=== PATIENT | female | born 1950 | race Caucasian/White ===

== ENCOUNTER 2019-02-24 14:27 | Outpatient (REF) | payer MEDICARE, OTHER, SELFPAY ==
[2019-02-24 18:49] LABS: Abs Immature Grans 0.01 k/cumm (0.0-0.09); Absolute Basophil Count 0.04 k/cumm (0.0-0.2); Absolute Eosinophil Count 0.01 k/cumm (0.0-0.7); Absolute Lymphocyte Count 1.24 k/cumm (1.2-3.4); Absolute Neutrophil Count 7.09 k/cumm (1.2-6.7); Basophils % 0.4; Eosinophils % 0.1; HCT 39.1 % (36.0-46.0); HGB 13.5 g/dL (12.0-15.5); Immature Grans % 0.1; Lymphocytes % 13.3; Mean Corp. HGB Concentration 34.5 g/dL (32.0-36.0); Mean Corpuscular Volume 89.7 fL (80-95); Mean Platelet Volume 11.8 fL (8.0-11.0); Monocytes % 9.7; Neutrophils % 76.4; Platelet Count 183 x1000/uL (130-400); RBC 4.36 m/cumm (4.00-5.20); RBC Distribution Width 12.7 % (11.7-14.6); White Blood Cell Count 9.29 k/cumm (4.4-10.8)
[2019-02-24 19:29] LABS: ALT 24 U/L (12-78); AST 20 U/L (15-37); Albumin 3.9 g/dL (3.4-5.0); Alkaline Phosphatase 133 U/L (46-116); BUN 9 mg/dL (7-18); Bilirubin, Total 0.6 mg/dL (0.2-1.0); CREATININE 1.13 mg/dL (0.55-1.02); Calcium 9.6 mg/dL (8.5-10.1); Calculated LDL 68 mg/dL; Cholesterol 188 mg/dL (50-200); Glucose 441 mg/dL (70-100); HDL Cholesterol 42 mg/dL (40-60); Magnesium 1.5 mg/dL (1.8-2.4); TSH 2.63 uIU/mL (0.358-3.74); Total Protein 7.5 g/dL (6.4-8.2); Triglyceride 394 mg/dL (30-150); Vitamin B12 1034 pg/mL (193-986)
[2019-02-24 19:38] LABS: Anion Gap 26.8 mmol/L (3-11); Chloride 96 mmol/L (98-107); Potassium 3.6 mmol/L (3.5-5.1); Sodium 136 mmol/L (136-145); Uric Acid 6.6 mg/dL (2.6-6.0)
[2019-02-24 19:39] LABS: CO2 13.2 mmol/L (21.0-32.0)
== END 2019-02-24 14:47 ==
LOC: LBN 14:27
PROVIDERS: PCP Internal Medicine; Visit Provider Internal Medicine
DX: E11.65 Type 2 diabetes mellitus with hyperglycemia (principal); E78.00 Pure hypercholesterolemia, unspecified; R53.1 Weakness; E83.42 Hypomagnesemia
CPT/HCPCS: 80053; 80061; 83721; 82607; 83735; 84443; 84550; 85025

== ENCOUNTER 2019-02-25 16:27 | Inpatient (IN) | payer MEDICARE, OTHER, SELFPAY ==
[2019-02-25] VITALS (15 sets, daily range): BP systolic 100–127; BP diastolic 55–74; PULSE 65–84; RESP 12–23; TEMP 36.3–36.6; O2SAT 96–100
--- NOTE | 2019-02-25 17:01 | W.ED.GENAD ---
Discharge Plan Disposition Patient Disposition: [facility] INPATIENT Condition: Serious Discharge Details Chief Complaint: Diabetes Clinical Impression: DKA (diabetic ketoacidoses) Admit Date/Time: 02/25/19 19:03 Admit Provider: William Doll Attending Provider: William Doll Primary Care Provider: Renée Walker ED Provider: Linda Swain Medical Decision Making ReviewedThe patient's chart. Her hemoglobin A1c is elevated at 14. This is not atypical for the patient, she has had an A1c of 14 since September 2017. CBC completed yesterday was up significant abnormality. Her magnesium was noted to be low at 1.5, this is typical for the patient. Triglycerides are elevated at 394, again this is not unusual for the patient. Potassium was 3.6. Dioxide is 13.2, anion gap of 26.8. Creatinine 1.13, this is moderate for the patient. Glucose was found to be 441. Patient denies any recent change in her diet. Does drink copious amounts of Crystal light. Patient appears dehydrated. Her VS are WNL. She has no acute complaints at this time. PCP reports that she has had 30lb weight loss over the past year. Patient appears dry on exam. Her vital signs are within normal limits. She appears nontoxic. She is not tachypneic. I do not appreciate any malodorous or ketones on her breath. I discussed with patient why she has not received treatment thus far for her diabetes. She reports that she is hesitant to take medication secondary to side effects that could possibly affect her vision. I counseled her at length about her uncontrolled diabetes and the risks associated with her vision. She seems upset by this and still hesitant to take medications long-term. Will repeat laboratory evaluation, begin hydrating the patient. Her potassium was normal yesterday but she will likely be receiving IV insulin, will begin replenishing this IV. We will begin with 20 mEq IV. Discussed this plan with the patient is in agreement. CBC is significant abnormality. Patient's sodium is slightly low at 134. Her potassium is 3.9. Bicarb 13.6. Anion gap creatinine is elevated 22.4, this is down from 26.8 yesterday. Creatinine is 1.32, this is higher than the patient's typical. Glucose is 557. Patient has been elevated like this historically, a1C often 14. Patient receiving IV fluids, potassium. Will begin on insulin drip with 6U bolus. Consulted with Dr. Carr regarding dosing, will begin at 0.1u/kg/hr. UA concerning for ketones, will add VBG. VBG concerning for pH of 7.21. Consulted with Dr. Doll regarding admission for DKA. Discussed with patient. We again discussed risks of her glucose being elevated like this, she is in agreement with home medications at this point. All of her questions and cocnerns were addressed. She has remained comfortable, has been eating and drinking since being here. HPI General Mode of arrival: ambulatory. Date/Time Provider Initiated Documentation: 02/25/19 16:38. Limitations to Documentation: no limitations. Information obtained by: patient, RN/MD (contact by primary care ) and RN notes reviewed. HPI Narrative: Patient is a 68-year-old female history of uncontrolled diabetes, presenting today with chief complaint of hyperglycemia. Patient seems fairly lackadaisical about why she is here, feels that she is here to receive a dosing of IV insulins that she is able to go through with her upcoming surgery. Primary concern for HHS. Patient reports that she had fallen 2 days ago, followed up with primary care yesterday at which time it was noted that she had an elevated A1c and glucose. Patient reports that she has been hesitant to begin on any diabetes medication secondary to side effects. She is concerned that this may worsen her vision. Patient is preparing for cataract replacements and was seeing her PCP in preparation for March 13 surgical date. Related Data Home Medications Medication Instructions Recorded Confirmed Bath Commode 1 u MISCELLANEOUS DAILY #1 u 07/31/16 02/25/19 blood sugar diagnostic [Onetouch #100 strip 05/14/17 02/25/19 Verio] lancets [Onetouch Lancets] #100 ea 07/30/17 02/25/19 Himalyian Sea Salts 1 cap PO DAILY 09/24/17 02/25/19 dulaglutide 0.75 mg/0.5 mL 0.75 mg SC QWEEK #2 ml 02/03/19 02/25/19 subcutaneous pen injector Previous Rx's Medication Instructions Recorded blood sugar diagnostic [Onetouch #100 strip 05/14/17 Verio] lancets [Onetouch Lancets] #100 ea 07/30/17 dulaglutide 0.75 mg/0.5 mL 0.75 mg SC QWEEK #2 ml 02/03/19 subcutaneous pen injector Allergies Allergy/AdvReac Type Severity Reaction Status Date / Time Penicillins Allergy Intermediate rash Verified 02/25/19 16:40 Sulfa (Sulfonamide Allergy Unknown Verified 02/25/19 16:40 Antibiotics) ct scan dye Allergy Unknown Uncoded 02/25/19 16:40 General Stated Complaint: Diabetes DEENA: 3 Review of Systems Constitutional Reports as per HPI, Denies chills, Denies fever(s), Denies headache(s), Denies lethargy and Denies poor appetite Eyes Reports change in vision (chronic, no acute changes) ENT Denies dizziness and Denies headache(s) Cardiovascular Reports as per HPI, Denies dyspnea and Denies dyspnea on exertion Respiratory Reports as per HPI, Denies chest congestion, Denies cough, Denies pain on inspiration, Denies pain with cough, Denies dyspnea, Denies dyspnea on exertion and Denies wheezing Gastrointestinal Reports as per HPI, Denies abdominal pain, Denies diarrhea, Denies nausea and Denies vomiting Musculoskeletal Reports as per HPI and Denies back pain Integumentary/Breasts Reports as per HPI and Denies rash Neurologic Reports as per HPI, Denies dizziness and Denies headache(s) Allergic/Immunologic Denies wheezing [facility] Medical History Ascites of liver (Inactive 11/15/14) Diabetes mellitus (Inactive 03/26/17) Essential hypertension (Inactive 01/16/12) Uncontrolled type 2 diabetes mellitus without complication, without long-term current use of insulin (Inactive 01/14/18) Surgical History Cervical Procedure S/P appendectomy (Acute) Social History Smoking/Tobacco Use Status: Never Alcohol Intake: former Drug use: Never Substance use type: does not use Household members: none Housing: house Number of Children: 1 number of grandchildren: 0 Education Level: other 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 Pets and animals: Yes Pets and animals: cat(s) What type of physical activity do you participate in: none Seatbelt use: always Drive intox or ride w/intox stacker driver: No Working smoke detector in home: Yes Fire extinguisher in home: Yes Carbon monox detector in home: Yes Do you feel safe at home: Yes Exam Const General: cooperative, healthy appearing, comfortable, no acute distress and well developed Nutritional Appearance: average body habitus and well nourished Orientation: alert, awake and oriented x3 HENMT Head: normal to inspection Ears: hearing grossly normal bilaterally Mouth: mucous membranes dry (patient appears dry) Chest Chest: normal inspection of the chest, normal palpation of entire chest wall and no crepitus Resp Effort & Inspection: normal respiratory effort, able to speak in complete sentences and no respiratory distress Auscultation: clear to auscultation bilaterally, no rales, no rhonchi and no wheezes Cardio Rate: regular rate Rhythm: regular rhythm Heart Sounds: S1 normal and S2 normal GI Inspection: normal to inspection, no edema and non-distended Palpation: soft, no hepatosplenomegaly, not firm, no guarding, not rigid and nontender Auscultation: normal bowel sounds Back/Spine/Pelvis Back: no CVA tenderness Thoracic/Lumbar Spine: thoracic and lumbar spine normal to inspection Skin General skin exam: no rashes or lesions noted Trauma: no lacerations or abrasions Neuro General: alert, awake and oriented x3 Cognition: normal cognition Speech: speech normal Gait: normal gait Extrem General: normal to inspection, normal capillary refill, no pedal edema, no calf tenderness and normal gait Psych Appearance: grossly normal and well kempt Mental Status: mental status grossly normal Speech and Movement: speech and movement normal Course Vital Signs Temperature 36.6 C 02/25/19 16:34 Pulse 84 02/25/19 16:34 Respiratory Rate 16 02/25/19 16:34 Blood Pressure 127/69 02/25/19 16:34 Pulse Oximetry 100 02/25/19 16:34 Temperature 36.6 C 02/25/19 16:34 Temperature Source Temporal Artery Scan 02/25/19 16:34 Pulse 84 02/25/19 16:34 Respiratory Rate 16 02/25/19 16:34 Respiratory Effort 02/25/19 16:38 Blood Pressure 127/69 02/25/19 16:34 Blood Pressure Position Supine 02/25/19 16:34 Pulse Oximetry 100 02/25/19 16:34 Oxygen Delivery Method Room Air 02/25/19 16:34 Oxygen Flow Rate 0 02/25/19 16:34 Pain Level 0 02/25/19 16:34
[2019-02-25 17:16] LABS: Abs Immature Grans 0.01 k/cumm (0.0-0.09); Absolute Basophil Count 0.05 k/cumm (0.0-0.2); Absolute Eosinophil Count 0.06 k/cumm (0.0-0.7); Absolute Lymphocyte Count 1.28 k/cumm (1.2-3.4); Absolute Monocyte Count 0.35 k/cumm (0.11-0.7); Absolute Neutrophil Count 2.97 k/cumm (1.2-6.7); Basophils % 1.1; Eosinophils % 1.3; HGB 12.6 g/dL (12.0-15.5); Immature Grans % 0.2; Lymphocytes % 27.1; Mean Corpuscular Hemoglobin 31.3 pg (27.0-33.0); Mean Corpuscular Volume 89.3 fL (80-95); Mean Platelet Volume 11.1 fL (8.0-11.0); Monocytes % 7.4; Neutrophils % 62.9; Platelet Count 150 x1000/uL (130-400); RBC 4.03 m/cumm (4.00-5.20); RBC Distribution Width 12.6 % (11.7-14.6); White Blood Cell Count 4.72 k/cumm (4.4-10.8)
[2019-02-25 17:25] LABS: ALT 22 U/L (12-78); AST 17 U/L (15-37); Albumin 3.5 g/dL (3.4-5.0); Alkaline Phosphatase 121 U/L (46-116); Anion Gap 22.4 mmol/L (3-11); BUN 11 mg/dL (7-18); Bilirubin, Total 0.6 mg/dL (0.2-1.0); CO2 13.6 mmol/L (21.0-32.0); CREATININE 1.32 mg/dL (0.55-1.02); Calcium 9.3 mg/dL (8.5-10.1); Chloride 98 mmol/L (98-107); Estimated GFR 39.79 (mL/min/1.73m2); Potassium 3.9 mmol/L (3.5-5.1); Sodium 134 mmol/L (136-145); Total Protein 7.4 g/dL (6.4-8.2)
[2019-02-25 17:36] LABS: Glucose 557 mg/dL (70-100)
[2019-02-25] MEDS: Normal Saline 1,000 ML 1000 ML IV (17:40)
[2019-02-25 17:46] LABS: Bilirubin Small (Negative); Blood Negative (Negative); Clarity Clear (Clear); Glucose 500 mg/dL (Negative); Ketones >=160 mg/dL (Negative); Leukocyte Esterase Negative (Negative); Nitrite Negative (Negative); Urobilinogen 0.2 EU/dL (Up TO 0.2); pH 5.5 (5-8)
[2019-02-25] MEDS: Insulin REGULAR-Human 100 UNITS/ML UNIT 6 UNITS IV (18:14)
[2019-02-25] MEDS: Normal Saline 1,000 ML 2000 ML IV (18:45)
[2019-02-25 18:51] LABS: HCO3 (Venous) 13 mmol/L (22-28); O2 Sat (Venous) 48 % (70-80); TCO2 (Venous) 13 mmol/L (22-29); pCO2 (Venous) 33 mm/Hg (34-47); pH (Venous) 7.21 (7.32-7.43); pO2 (Venous) 28 mm/Hg (28-44)
[2019-02-25] MEDS: POTASSIUM CHLORIDE 20 MEQ/100 ML BAG 50 MEQ IVPB ×2 (18:55→21:42)
[2019-02-25 19:03] LABS: Anion Gap 21.6 mmol/L (3-11); BUN 10 mg/dL (7-18); CO2 14.4 mmol/L (21.0-32.0); CREATININE 1.16 mg/dL (0.55-1.02); Calcium 8.9 mg/dL (8.5-10.1); Chloride 101 mmol/L (98-107); Estimated GFR 46.19 (mL/min/1.73m2); Glucose 410 mg/dL (70-100); Potassium 3.2 mmol/L (3.5-5.1); Sodium 137 mmol/L (136-145)
--- NOTE | 2019-02-25 20:57 | W.PM.HP.N ---
Date of service: 02/25/19 Time of Service: 20:57 Assessment and Plan (1) DKA (diabetic ketoacidoses): Current visit: Yes Status: Acute correct hypokalemia first then resume insulin drip; continue aggressive iv fluid hydration; monitor hourly glucose and BMP every 3 to 4hrs correcting her potassium; if becomes hypernatremic/hyperchloremic then replace with 0.45% saline. patient will need salesforce consultant to teach her on insulin use. She could benefit from help with getting glucose monitoring equipment for the visually impaired as well as set up for insulin pens with some system for the visually impaired. (2) Hypomagnesemia: Current visit: Yes Status: Acute will give magnesium iv bolus and repeat her levels. may be difficult getting her K+ corrected until her Mg++ is corrected (3) Hypokalemia: Current visit: Yes Status: Acute continue potassium 40 meq in her maintenance iv at 200 mL/hr (this will give about 9 meq/hr) and will give couple of 20 meq boluses. repeat her electrolytes every 3 hr overnight until K+ is over 4 (4) Unintentional weight loss: Current visit: Yes Status: Acute probably secondary to uncontrolled DM however I explained to the patient that if her weight does not stabilize with control of her DM then she may further outpatient workup for occult cancer (5) Neuropathy: Current visit: No Status: Acute she has diabetic neuropathy with some superficicial skin ulcerations on tips of her toes and hammer toes. there is no purulent drainage from her toes but she has a blackened area on the left 2nd toe. I will ask Dr. Laura to evaluate her toes. History of Present Illness Chief Complaint: I was told by Dr. 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 Glycohemoglobin A1c's have been over 12% since March 26, 2017 with her most recent A1c being 14% as of February 03, 2019. Patient's had blurred vision for at least a couple years now but is gotten worse over the last several months and she is been told that she has bilateral cataracts that need to be removed but her primary care provider will not consent to her having surgery unless she gets her diabetes mellitus under control. Dr. Walekr perform routine laboratory tests yesterday as part of the patient's preoperative work-up. Patient was found to have a glucose level of 441 with an anion gap of 26.8. She was told to present to the emergency department. Patient came in this afternoon and laboratory work-up confirmed that she has diabetic ketoacidosis with an anion gap of 22.4 and a glucose of 557 and greater than 160 mg/dL of ketones in her urine and a venous blood gas with a pH of 7.21 and a chemistry bicarbonate level that was as low as 13.6. Patient was seen and treated in the emergency department by Monique Molina, who gave the patient 2 L normal saline and a bolus of 6 units of insulin and began an insulin drip at 0.1 units/kg/h or 6 units an hour. Initially her potassium was 3.9 on admission but after the fluid boluses and initiation of insulin her potassium dropped to 3.2. Her magnesium level been checked yesterday but not repeated today yet. It was low at 1.5. I advised that the patient should be admitted to the intensive care unit for treatment of diabetic ketoacidosis. In spite of her severe laboratory abnormalities the patient overall feels pretty good and denies polyuria or polydipsia or polyphagia although admits to drinking a lot of crystal light because she does not like water. Patient has not been taking any diabetic medications although she says she was prescribed Trulicity a couple months ago. Patient does not check her blood sugars at home because she cannot see the meter. She is been afraid to give herself the Trulicity because she cannot see to dose herself. Patient lives alone but receives some help from her son who lives nearby and he reads her male and helps her do her bookkeeping. She was scheduled to have her cataract surgery this next month pending control of her diabetes mellitus. Patient denies any symptoms of fevers, chills, rigors, nausea or vomiting, diarrhea, abdominal pain, chest pain, dyspnea. Patient does admit to a recent fall in the last week in which she fell on her left side and had trouble getting up but since that time she has been able to walk without any significant left-sided hip or knee pain. It sounds like it was a simple mechanical fall which she tripped. Patient denies any other chronic medical conditions. She does admit to a 40 pound weight loss over the past year. Past medical history significant for cataracts as well as type 2 diabetes mellitus however when I asked her how long she has had the diabetes mellitus she was unclear she thinks may be 5 years but does not think that it has been more than 10 years. She denies any hypertension or congestive heart failure heart attack strokes. She does admit to diabetic peripheral neuropathy in her toes. Her past surgical history significant for appendectomy and tonsillectomy. She is and has 1 grown son. Review of Systems Constitutional Reports weight loss (40 lbs over one year) Eyes Reports blurry vision Cardiovascular Reports system reviewed and no additional complaints, except as docu Respiratory Reports system reviewed and no additional complaints, except as docu Gastrointestinal Reports system reviewed and no additional complaints, except as docu Genitourinary Reports system reviewed and no additional complaints, except as docu Musculoskeletal Reports system reviewed and no additional complaints, except as docu, Reports numbness and Reports tingling Integumentary/Breasts Reports system reviewed and no additional complaints, except as docu Neurologic Reports numbness and Reports tingling Psychiatric Reports system reviewed and no additional complaints, except as docu Endocrine Reports as per HPI Hematologic/Lymphatic Reports system reviewed and no additional complaints, except as docu Allergic/Immunologic Reports system reviewed and no additional complaints, except as docu PFS Medical History (Updated 02/26/19 @ 15:57 by Wendy Lin MD) Ascites of liver (Inactive 11/15/14) Diabetes mellitus (Inactive 03/26/17) Essential hypertension (Inactive 01/16/12) Uncontrolled type 2 diabetes mellitus without complication, without long-term current use of insulin (Inactive 01/14/18) Surgical History (Updated 02/25/19 @ 22:14 by William Doll) Cervical Procedure S/P appendectomy (Acute) S/P tonsillectomy (Acute) Family History Grandmother Stroke Mother No problems noted. 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 Pets and animals: Yes Pets and animals: cat(s) What type of physical activity do you participate in: none Seatbelt use: always Drive intox or ride w/intox front end loader driver: No Working smoke detector in home: Yes Fire extinguisher in home: Yes Carbon monox detector in home: Yes Do you feel safe at home: Yes Meds Home Medications Medication Instructions Recorded Confirmed Type Bath Commode 1 u MISCELLANEOUS DAILY #1 u 07/31/16 02/25/19 History blood sugar diagnostic [Onetouch #100 strip 05/14/17 02/25/19 Rx Verio] lancets [Onetouch Lancets] #100 ea 07/30/17 02/25/19 Rx Himalyian Sea Salts 1 cap PO DAILY 09/24/17 02/25/19 History dulaglutide 0.75 mg/0.5 mL 0.75 mg SC QWEEK #2 ml 02/03/19 02/25/19 Rx subcutaneous pen injector Allergies Allergy/AdvReac Type Severity Reaction Status Date / Time Penicillins Allergy Intermediate rash Verified 02/25/19 16:40 Sulfa (Sulfonamide Allergy Unknown Verified 02/25/19 16:40 Antibiotics) ct scan dye Allergy Unknown Uncoded 02/25/19 16:40 Exam Const General: cooperative, no acute distress and well groomed Nutritional Appearance: average body habitus Orientation: alert, awake and oriented x3 HENMT Head: normal to inspection, no palpable skull fracture, normocephalic and atraumatic Ears: hearing grossly normal bilaterally, external ears normal and TM's normal bilaterally General nose exam: external nose normal and nares normal Face and sinus: normal facial exam Mouth: oral mucosae normal, lip normal, tongue normal, oropharynx normal and malodorous breath ketones Teeth and gingiva: fair dentition and multiple restorations Neck Neck: normal visual inspection, full ROM, no lymphadenopathy, no meningeal signs, trachea midline, supple and no JVD Thyroid: thyroid normal Carotids: normal carotid upstroke Lymphatic: no lymphadenopathy noted Resp Effort & Inspection: normal respiratory effort and able to speak in complete sentences Auscultation: clear to auscultation bilaterally Cardio Jugular venous pressure: no JVD Palpation: normal PMI Rate: regular rate Rhythm: regular rhythm Heart Sounds: S1 normal, S2 normal and murmur systolic early, crescendo, soft, II/ and at the right sternal border Bruits: no abdominal aortic bruits and no carotid bruits Pulses: posterior tibial pulses present bilaterally diminished and dorsalis pedis pulses present bilaterally diminished Skin General skin exam: no rashes or lesions noted Neuro General: alert, awake and oriented x3 Cranial Nerves: PERRL, accommodation normal, EOM intact bilaterally, no nystagmus, hearing normal, able to rotate head bilaterally and able to elevate shoulders bilaterally Cognition: normal cognition Speech: speech normal Motor: muscle tone normal throughout, strength 5/5 throughout and no movement abnormalities noted Sensory Exam: lower extremity bilateral light-touch abnormal absent Extrem Right lower extremity: foot Details: other (hammer toes) Left lower extremity: foot Details: other (hammer toes and left 2nd toe w/ purplish necrosis on tip) Psych Appearance: grossly normal Mental Status: mental status grossly normal Speech and Movement: speech and movement normal Mood: congruent mood Affect: normal affect Attitude: cooperative Thought Process: normal Thought Content: normal Insight: fair Judgment: fair Results Labs : 02/25/19 16:45 02/26/19 14:34 Laboratory Results - last 24 hr 02/25/19 02/25/19 02/25/19 16:45 16:45 17:40 WBC 4.72 D RBC 4.03 Hgb 12.6 Hct 36.0 MCV 89.3 MCH 31.3 MCHC 35.0 RDW 12.6 Plt Count 150 MPV 11.1 H Immature Gran % 0.2 Neutrophils % 62.9 Lymphocytes % 27.1 Monocytes % 7.4 Eosinophils % 1.3 Basophils % 1.1 Absolute Neutrophils 2.97 Absolute Lymphocytes 1.28 Absolute Monocytes 0.35 Absolute Eosinophils 0.06 Absolute Basophils 0.05 VBG pH VBG pCO2 VBG pO2 VBG HCO3 VBG Total CO2 VBG O2 Saturation VBG Base Excess Sodium 134 L Potassium 3.9 Chloride 98 Carbon Dioxide 13.6 L Anion Gap 22.4 H BUN 11 Creatinine 1.32 H Estimated GFR/1.73 m2 39.79 Glucose 557 H* D Calcium 9.3 Total Bilirubin 0.6 AST 17 ALT 22 Alkaline Phosphatase 121 H Total Protein 7.4 Albumin 3.5 Urine Color Yellow Urine Clarity Clear Urine pH 5.5 Ur Specific [place] 1.010 Urine Protein Negative Urine Ketones >=160 H Urine Blood Negative Urine Nitrite Negative Urine Bilirubin Small H Urine Urobilinogen 0.2 Ur Leukocyte Esterase Negative Urine Glucose 500 H 02/25/19 02/25/19 18:47 18:47 WBC RBC Hgb Hct MCV MCH MCHC RDW Plt Count MPV Immature Gran % Neutrophils % Lymphocytes % Monocytes % Eosinophils % Basophils % Absolute Neutrophils Absolute Lymphocytes Absolute Monocytes Absolute Eosinophils Absolute Basophils VBG pH 7.21 L VBG pCO2 33 L VBG pO2 28 VBG HCO3 13 L VBG Total CO2 13 L VBG O2 Saturation 48 L VBG Base Excess Sodium 137 Potassium 3.2 L Chloride 101 Carbon Dioxide 14.4 L Anion Gap 21.6 H BUN 10 Creatinine 1.16 H Estimated GFR/1.73 m2 46.19 Glucose 410 H D Calcium 8.9 Total Bilirubin AST ALT Alkaline Phosphatase Total Protein Albumin Urine Color Urine Clarity Urine pH Ur Specific [place] Urine Protein Urine Ketones Urine Blood Urine Nitrite Urine Bilirubin Urine Urobilinogen Ur Leukocyte Esterase Urine Glucose Last Vital Signs Temp 36.6 C 02/25/19 19:18 Pulse 71 02/25/19 20:23 Resp 12 02/25/19 20:23 BP 109/62 02/25/19 20:23 Pulse Ox 99 02/25/19 20:23
[2019-02-25] MEDS: POTASSIUM CHLORIDE/0.9% NACL 1,000 ML 200 MEQ IV (21:20)
[2019-02-25] MEDS: Enoxaparin 40 MG/0.4 ML SYR SC (21:20)
[2019-02-25] MEDS: MAGNESIUM SULFATE 4 GM/100 ML BAG IVPB (22:20)
[2019-02-25 22:43] LABS: Anion Gap 20.1 mmol/L (3-11); BUN 10 mg/dL (7-18); CO2 13.9 mmol/L (21.0-32.0); Calcium 9.1 mg/dL (8.5-10.1); Chloride 103 mmol/L (98-107); Glucose 299 mg/dL (70-100); PHOSPHORUS 2.4 mg/dL (2.6-4.7); Potassium 3.7 mmol/L (3.5-5.1); Sodium 137 mmol/L (136-145)
[2019-02-26] VITALS (64 sets, daily range): BP systolic 100–124; BP diastolic 56–73; PULSE 61–79; RESP 10–23; TEMP 36.2–37.4; O2SAT 94–97
[2019-02-26] MEDS: POTASSIUM CHLORIDE 20 MEQ/100 ML BAG 50 MEQ IVPB (01:18)
[2019-02-26 01:30] LABS: Anion Gap 18.9 mmol/L (3-11); BUN 9 mg/dL (7-18); CO2 13.1 mmol/L (21.0-32.0); CREATININE 1.01 mg/dL (0.55-1.02); Calcium 8.8 mg/dL (8.5-10.1); Chloride 105 mmol/L (98-107); Estimated GFR 54.19 (mL/min/1.73m2); Glucose 283 mg/dL (70-100); Potassium 4.8 mmol/L (3.5-5.1); Sodium 137 mmol/L (136-145)
[2019-02-26] MEDS: POTASSIUM CHLORIDE/0.9% NACL 1,000 ML 150 MEQ IV ×2 (03:46→10:16)
[2019-02-26 04:54] LABS: Anion Gap 14.2 mmol/L (3-11); BUN 9 mg/dL (7-18); CO2 15.8 mmol/L (21.0-32.0); CREATININE 1.07 mg/dL (0.55-1.02); Calcium 8.3 mg/dL (8.5-10.1); Chloride 108 mmol/L (98-107); Glucose 385 mg/dL (70-100); Potassium 4.5 mmol/L (3.5-5.1); Sodium 138 mmol/L (136-145)
[2019-02-26 07:28] LABS: Anion Gap 11.3 mmol/L (3-11); BUN 8 mg/dL (7-18); CO2 17.7 mmol/L (21.0-32.0); CREATININE 1.07 mg/dL (0.55-1.02); Calcium 8.3 mg/dL (8.5-10.1); Chloride 109 mmol/L (98-107); Glucose 306 mg/dL (70-100); Potassium 4.2 mmol/L (3.5-5.1); Sodium 138 mmol/L (136-145)
--- NOTE | 2019-02-26 08:24 | W.PM.PROGNOT ---
Date of Service Date of service: 02/26/19 Time of Service: 15:49 Assessment and Plan (1) DKA (diabetic ketoacidoses): Current visit: Yes Status: Acute Anion gap has closed; acidosis is correcting with change of fluids to LR and pH on VBG earlier today was already significantly better. Continue LR fluids. Give long acting insulin now. (2) Hypokalemia: Current visit: Yes Status: Acute Repleted - monitor (3) Hypomagnesemia: Current visit: Yes Status: Acute replete (4) Cataracts, bilateral: Current visit: Yes Status: Acute Patient cites difficulty seeing as the reason why she would not take insulin. She now agrees to count clicks and thinks she could work with a glucometer than talked to her. (5) Fatty liver: Current visit: No Status: Acute Check ammonia (6) DVT prophylaxis: Current visit: Yes Status: Acute lovenox (7) Discharge planning issues: Current visit: Yes Status: Acute Full code - discussed this with patient. This is what she wants, though her COLST form says differently. Continues to require ICU Subjective Interval history since last seen: Denies dizziness, chest pain, shortness of breath, nausea, vomiting. Remains on insulin gtt. Wants to go home today, but accepts staying the night. She is interested in getting out of the ICU and agrees to be transitioned to basal bolus insulin. Evidently, she declined to talk to the public health educator twice today - per patient, she is not sure why. Fell before coming in - stayed down a whole night. L thigh painful. L foot has 3 scabs on it, 2nd toe with black tip. Podiatry consult is pending. Has pulses in that foot/cool to touch. Exam Narrative Exam Narrative: General: middle-aged female, sometimes slow to respond, A&Ox3, appears dehydrated HEENT: EOMI, dry MM Heart: RRR, no m/r/g Lungs: CTAB GI: abdomen is soft, nontender, nondistended Extremities: no e/c/c BLE's Objective Objective Clinical Data: Abnormal lab results 02/25/19 02/25/19 02/25/19 Range/Units 16:45 16:45 17:40 MPV 11.1 H (8.0-11.0) fL VBG pH (7.32-7.43) VBG pCO2 (34-47) mm/Hg VBG HCO3 (22-28) mmol/L VBG Total CO2 (22-29) mmol/L VBG O2 Saturation (70-80) % Sodium 134 L (136-145) mmol/L Potassium (3.5-5.1) mmol/L Chloride (98-107) mmol/L Carbon Dioxide 13.6 L (21.0-32.0) mmol/L Anion Gap 22.4 H (3-11) mmol/L Creatinine 1.32 H (0.55-1.02) mg/dL Glucose 557 H* D (70-100) mg/dL Calcium (8.5-10.1) mg/dL Phosphorus (2.6-4.7) mg/dL Alkaline Phosphatase 121 H (46-116) U/L Urine Ketones >=160 H (Negative) mg/dL Urine Bilirubin Small H (Negative) Urine Glucose 500 H (Negative) mg/dL 02/25/19 02/25/19 02/25/19 Range/Units 18:47 18:47 20:20 MPV (8.0-11.0) fL VBG pH 7.21 L (7.32-7.43) VBG pCO2 33 L (34-47) mm/Hg VBG HCO3 13 L (22-28) mmol/L VBG Total CO2 13 L (22-29) mmol/L VBG O2 Saturation 48 L (70-80) % Sodium (136-145) mmol/L Potassium 3.2 L (3.5-5.1) mmol/L Chloride (98-107) mmol/L Carbon Dioxide 14.4 L 13.9 L (21.0-32.0) mmol/L Anion Gap 21.6 H 20.1 H (3-11) mmol/L Creatinine 1.16 H 1.10 H (0.55-1.02) mg/dL Glucose 410 H D 299 H D (70-100) mg/dL Calcium (8.5-10.1) mg/dL Phosphorus 2.4 L (2.6-4.7) mg/dL Alkaline Phosphatase (46-116) U/L Urine Ketones (Negative) mg/dL Urine Bilirubin (Negative) Urine Glucose (Negative) mg/dL 02/26/19 02/26/19 02/26/19 Range/Units 01:00 04:34 06:20 MPV (8.0-11.0) fL VBG pH (7.32-7.43) VBG pCO2 (34-47) mm/Hg VBG HCO3 (22-28) mmol/L VBG Total CO2 (22-29) mmol/L VBG O2 Saturation (70-80) % Sodium (136-145) mmol/L Potassium (3.5-5.1) mmol/L Chloride 108 H 109 H (98-107) mmol/L Carbon Dioxide 13.1 L 15.8 L 17.7 L (21.0-32.0) mmol/L Anion Gap 18.9 H 14.2 H 11.3 H (3-11) mmol/L Creatinine 1.07 H 1.07 H (0.55-1.02) mg/dL Glucose 283 H 385 H D 306 H (70-100) mg/dL Calcium 8.3 L 8.3 L (8.5-10.1) mg/dL Phosphorus (2.6-4.7) mg/dL Alkaline Phosphatase (46-116) U/L Urine Ketones (Negative) mg/dL Urine Bilirubin (Negative) Urine Glucose (Negative) mg/dL Vital Signs Temperature 36.2 C L 02/26/19 07:57 Temperature Source Temporal Artery Scan 02/26/19 07:57 Pulse 68 02/26/19 06:01 Pulse 72 02/26/19 06:01 Respiratory Rate 17 02/26/19 06:01 Respiratory Effort Non-Labored 02/26/19 07:57 Respiratory Depth Normal 02/26/19 07:57 Respiratory Pattern Normal 02/26/19 07:57 Blood Pressure 102/60 02/26/19 06:01 Blood Pressure Mean 68 02/26/19 06:01 Blood Pressure Position Supine 02/25/19 16:34 Pulse Oximetry 95 02/26/19 03:36 Oxygen Delivery Method Room Air 02/26/19 04:06 Oxygen Flow Rate 0 02/26/19 04:06 Pain Level 3 02/26/19 08:11 Intake & Output 02/25/19 02/25/19 02/26/19 11:59 23:59 11:59 Intake Total 2200 / 2200 2152.15 / 2152.15 Output Total 525 / 525 900 / 900 Balance 1675 / 1675 1252.15 / 1252.15 Weight 62.6 kg 62.6 kg Intake: IV 2200 / 2200 1222.15 / 1222.15 Oral 930 / 930 Output: Urine 525 / 525 900 / 900 Other: Urine Color Yellow Yellow Urine Appearance Clear Clear Urine Odor Normal Normal Comment Pt states that there has been no change in urination with the onset of symptoms and she has not been going more than normal # Voids 3 Laboratory Results WBC 4.72 k/cumm (4.4-10.8) D 02/25/19 16:45 RBC 4.03 m/cumm (4.00-5.20) 02/25/19 16:45 Hgb 12.6 g/dL (12.0-15.5) 02/25/19 16:45 Hct 36.0 % (36.0-46.0) 02/25/19 16:45 MCV 89.3 fL (80-95) 02/25/19 16:45 MCH 31.3 pg (27.0-33.0) 02/25/19 16:45 MCHC 35.0 g/dL (32.0-36.0) 02/25/19 16:45 RDW 12.6 % (11.7-14.6) 02/25/19 16:45 Plt Count 150 x1000/uL (130-400) 02/25/19 16:45 MPV 11.1 fL (8.0-11.0) H 02/25/19 16:45 Immature Gran % 0.2 02/25/19 16:45 62.9 02/25/19 16:45 27.1 02/25/19 16:45 7.4 02/25/19 16:45 1.3 02/25/19 16:45 1.1 02/25/19 16:45 Absolute Neutrophils 2.97 k/cumm (1.2-6.7) 02/25/19 16:45 Absolute Lymphocytes 1.28 k/cumm (1.2-3.4) 02/25/19 16:45 Absolute Monocytes 0.35 k/cumm (0.11-0.7) 02/25/19 16:45 Absolute Eosinophils 0.06 k/cumm (0.0-0.7) 02/25/19 16:45 Absolute Basophils 0.05 k/cumm (0.0-0.2) 02/25/19 16:45 VBG pH 7.21 (7.32-7.43) L 02/25/19 18:47 VBG pCO2 33 mm/Hg (34-47) L 02/25/19 18:47 VBG pO2 28 mm/Hg (28-44) 02/25/19 18:47 VBG HCO3 13 mmol/L (22-28) L 02/25/19 18:47 VBG Total CO2 13 mmol/L (22-29) L 02/25/19 18:47 VBG O2 Saturation 48 % (70-80) L 02/25/19 18:47 VBG Base Excess mmol/L (-3-3) 02/25/19 18:47 Sodium 138 mmol/L (136-145) 02/26/19 06:20 Potassium 4.2 mmol/L (3.5-5.1) 02/26/19 06:20 Chloride 109 mmol/L (98-107) H 02/26/19 06:20 Carbon Dioxide 17.7 mmol/L (21.0-32.0) L 02/26/19 06:20 11.3 mmol/L (3-11) H 02/26/19 06:20 BUN 8 mg/dL (7-18) 02/26/19 06:20 1.07 mg/dL (0.55-1.02) H 02/26/19 06:20 50.70 (mL/min/1.73m2) 02/26/19 06:20 Glucose 306 mg/dL (70-100) H 02/26/19 06:20 Calcium 8.3 mg/dL (8.5-10.1) L 02/26/19 06:20 Phosphorus 2.4 mg/dL (2.6-4.7) L 02/25/19 20:20 0.6 mg/dL (0.2-1.0) 02/25/19 16:45 AST 17 U/L (15-37) 02/25/19 16:45 ALT 22 U/L (12-78) 02/25/19 16:45 121 U/L (46-116) H 02/25/19 16:45 7.4 g/dL (6.4-8.2) 02/25/19 16:45 3.5 g/dL (3.4-5.0) 02/25/19 16:45 Yellow (Yellow) 02/25/19 17:40 Clear (Clear) 02/25/19 17:40 5.5 (5-8) 02/25/19 17:40 Ur Specific Tracy 1.010 (1.005-1.025) 02/25/19 17:40 Negative mg/dL (Negative) 02/25/19 17:40 >=160 mg/dL (Negative) H 02/25/19 17:40 Negative (Negative) 02/25/19 17:40 Negative (Negative) 02/25/19 17:40 Small (Negative) H 02/25/19 17:40 0.2 EU/dL (Up TO 0.2) 02/25/19 17:40 Ur Leukocyte Esterase Negative (Negative) 02/25/19 17:40 500 mg/dL (Negative) H 02/25/19 17:40
[2019-02-26] MEDS: Insulin Aspart 300 UNITS/3 ML PEN SC ×2 (08:49→12:31)
[2019-02-26 08:56] LABS: Magnesium 2.3 mg/dL (1.8-2.4); PHOSPHORUS 1.7 mg/dL (2.6-4.7)
[2019-02-26 09:27] LABS: Creatine Kinase 199 U/L (26-192)
--- NOTE | 2019-02-26 10:43 | INITIAL_ITS ---
Care Management Initial Assess REASON FOR HOSPITALIZATION:: DKA PAST MEDICAL HISTORY/PAST SURGICAL HISTORY:: Ascites of liver, DM, essential hypertension, uncontrolled type [address] [facility] complication; reportedly non- compliant, peripheral neuropathy, gait impairment, fatigue. Appendectomy, tonsillectomy. PREVIOUS FUNCTIONAL STATUS/SOCIAL/FAMILY SUPPORTS:: Christina resides in [place], [place]. 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 She is independent with ADLs at baseline though per chart review is experiencing increased weakness and has uncontrolled diabetes. She is described as non- compliant and was not agreeable to recommendations made by Jeimy Mackay; Outpatient Manager Massage Department. CURRENT FUNCTIONAL STATUS:: Unable to connect due to ongoing testing. CM will continue to attempt to meet with Christina. ADVANCE DIRECTIVES:: None on file at [facility]. Has patient been provided with information about the portal?: No Did the patient sign up for the portal?: No CODE STATUS:: Full Code INSURANCE COVERAGE / FINANCIAL ISSUES:: Medicare. [employer] CURRENT HOME/COMMUNITY SERVICES/EQUIPMENT:: Outpatient Manager Massage Department PRIMARY CARE PHYSICIAN:: Renée Walker POTENTIAL DISCHARGE NEEDS:: Follow up appointments. PATIENT/FAMILY EDUCATION NEEDS:: Review of discharge instructions, discuss Ask Me Three. ANTICIPATED BARRIERS TO DISCHARGE:: None identified. TRANSPORTATION:: Via private vehicle with family. PLAN:: Christina will return home when ready per MD. She will follow up with her PCP and plan of care as prescribed. She will transport via private vehicle with family.
[2019-02-26 11:06] LABS: HCO3 (Venous) 16 mmol/L (22-28); O2 Sat (Venous) 91 % (70-80); TCO2 (Venous) 15 mmol/L (22-29); pCO2 (Venous) 30 mm/Hg (34-47); pH (Venous) 7.33 (7.32-7.43); pO2 (Venous) 57 mm/Hg (28-44)
[2019-02-26 11:09] LABS: BE (Venous) -10.2 mmol/L (-3-3)
[2019-02-26 11:21] LABS: Anion Gap 12.5 mmol/L (3-11); BUN 7 mg/dL (7-18); CO2 15.5 mmol/L (21.0-32.0); CREATININE 1.02 mg/dL (0.55-1.02); Calcium 8.2 mg/dL (8.5-10.1); Chloride 108 mmol/L (98-107); Estimated GFR 53.58 (mL/min/1.73m2); Glucose 218 mg/dL (70-100); Magnesium 1.8 mg/dL (1.8-2.4); Sodium 136 mmol/L (136-145)
--- NOTE | 2019-02-26 12:08 | PT.INIE ---
Date of service: 02/26/19 Time of Service: 09:11 PT Notes Inpatient Physical Therapy Evaluation Date: 02/26/2019 Referring Doctor: Wedny Lin MD PT Orders: PT CONSULT: Eval/treat Precautions: Fall. Standard. Impaired visual acuity due to diabetic cataracts. Patient Profile/Admitting Diagnosis: Patient is a 68-year-old female with past medical history significant for TYpe II Diabetes Mellitus who presented to the ED on 02/25/2019 as strongly recommended by PCP due to most recent blood sugar and A1C laboratory work up. Patient was diagnosed with Diabetic Ketoacidosis, Hypomagnesemia, unintentional weight loss, and neuropathy. Patient also presented to [facility] and skin ulceration on the left second toe. Patient also had a recent fall related to uncontrolled blood sugars and impaired visual acuity. PMHX: Medical History (Updated 02/25/19 @ 22:21 by William Doll) Ascites of liver (Inactive 11/15/14) Diabetes mellitus (Inactive 03/26/17) Essential hypertension (Inactive 01/16/12) Uncontrolled type 2 diabetes mellitus without complication, without long-term current use of insulin Surgical History (Updated 02/25/19 @ 22:14 by William Doll) Cervical Procedure S/P appendectomy (Acute) S/P tonsillectomy (Acute) Social History/Home Situation: Patient lives alone in a 2-story house with two steps to enter without rails. She has 12 steps to get into the second floor of the house and there is a step up onto the kitchen. Patient has a son who lives in [place] but is in transit to [place] today. Patient has been independent with al aspects of ADLs but has not been driving due to decreased visual acuity from having diabetic cataracts which has also negatively impacted the frequency of her neighborhood walks. She states she has a cane at home that she very infrequently uses. She was trying to water her plants just this Saturday and had inadvertently spilled some water on the floor which then caused her to slide. She landed on her left hip and she reports that she may have sprained herleft ankle during her abrupt descent to the floor. Current Functional Limitations: Need for assistance with all transfer and ambulation task performance Equipment Owned/DME: SC, shower chair, grab bar Subjective: Patient is agreeable to a PT consult and treatment although she states that she did not have a restful night last night as she was practically woken up almost once every hour. She strongly stated that if she were to stay in the ICU today, she would want to 'disadmit herself out of here. At the end of the PT consult and session, upon rendering of PT recommendations, patient was willing to stay a couple of days if she were to be transferred out of the ICU. Patient was advised that the nurse will be informed about this matter so that MD can have a conversation with patient to hopefully resolve said issue. Objective: General Observation: Patient seen resting in bed. telemetry monitor in place. IV in L UE. No ecchymosis/contusion seen on the L hip and adjacen areas. L ankle swollen and with thee small open areas which appeared to be abrasions from patient's recent fall. Poor feet hygiene observed with interdigital areas not cleaned well. Soles of feet with minimal cracking. Open area on the tip of the distal phalanx of the L second toe necrotic and without drainage. Mental Status: A nad oriented x 4 Pain: Tenderness on lateral hip area to palpation, mild to moderate pain on L ankle especially with movement and weight bearing ROM: Right Upper Extremity: Shoulder Flexion WFL. Shoulder abduction WFL. Elbow flexion WFL. Wrist flexion WFL. Functional opening and closing of hand WFL. Left Upper Extremity: Shoulder Flexion WFL. Shoulder abduction WFL. Elbow flexion WFL. Wrist flexion WFL. Functional opening and closing of hand WFL. Right Lower Extremity: Hip flexion WFL. Hip abduction WFL. Knee flexion WFL. Ankle dorsiflexion WFL. Ankle plantarflexion WFL. Left Lower Extremity: Hip flexion WFL with discomfort reported at end of range. Hip abduction WFL discomfort reported at end of range. Knee flexion WFL. Ankle dorsiflexion WFL discomfort reported at end of range. Ankle plantarflexion WFL discomfort reported at end of range. Strength: Right Upper Extremity: Shoulder flexors 4/5. Shoulder abductors 4/5. Elbow flexors 4/5. Elbow extensors 4/5. Director Of Technology strong. Left Upper Extremity: Shoulder flexors 4/5. Shoulder abductors 4/5. Elbow flexors 4/5. Elbow extensors 4/5. Director Of Technology strong. Right Lower Extremity: Hip flexors 3/5. Hip abductors 4-/5. Knee flexors 4-/5. Knee extensors 3/5. Ankle dorsiflexors 4-/5. Ankle plantarflexors 4-/5. Left Lower Extremity:Hip flexors 3/5. Hip abductors 4-/5. Knee flexors 4-/5. Knee extensors 3/5. Ankle dorsiflexors 4-/5. Ankle plantarflexors 4-/5.. Sensation: Patient reports diminished sensation on bilateral legs and feet as to pressure, increased tingling from chroninc neuropathies related to DM. Bed Mobility/Transfers: Rolling SBA Supine to sit SBA Sit to supine SBA Sit to stand CGA Stand to sit CGA Bed to chair CGA Chair to bed CGA Gait: Patient was able to tolerate 8 feet + 8 feet using FWW with CGA with report of discomfort on the L ankle at midstance. Decreased gait velocity due to impaired vision, neuropathy, and L ankle pain. Balance: Static Sitting: Good Dynamic Sitting: Good Static Standing: Fair Dynamic Standing: Fair Special Tests: Mobility Limitations Standardized Measure [facility] 6 clicks Basic Mobility Inpatient Short Form: Raw Score: 20 CMS Score: 36% Informed Consent/Education: Patient instructed in purpose of PT consult and plan of care. Assessment: Patient was diagnosed with Diabetic Ketoacidosis, Hypomagnesemia, unintentional weight loss, and neuropathy. Patient presents with clinical signs and symptoms consistent with current/admitting diagnoses that have resulted to mobility limitations, gait instability, generalized weakness, and impairment of motor control as demonstrated by the following impairment level findings: 1. Decreased strength to B LE major muscle groups 2. Impaired sitting/standing balance 3. Impaired activity tolerance 4. Limitation of joint range of motion in in L ankle and L hip due to discomfort Impairments are contributing to the following functional limitations: 1. Dependent bed mobility skills 2. Increased dependence with transfers 3. Inability to safely ambulate without assistive device and physical assistance 4. Increase completion time for mobility ADL performance 5. Increased fall risk 6. Inability to negotiate steps alone safely Patient is assessed as a 00482 moderate complexity based on the following: History: Patient is a 68-year-old female who was diagnosed with Diabetic Ketoacidosis, Hypomagnesemia, unintentional weight loss, and neuropathy. Examination: Demonstrable impairment in strength, balance, and range of motion with underlying impairments and functional limitations as documented above Presentation:Evolving Decision Makin moderate complexity Goals: Goals X1 week 1. Supine-Sit independent 2. Sit-Supine independent 3. Sit-Stand independent 4. Stand-Sit independent 5. Bed-Chair independent 6. Chair-Bed independent 7. Independent gait on level surface with use of least restrictive device for at least 300 feet without report of pain nor dyspnea 8. Independent stair negotiation while holding onto bilateral rails for at least 12 steps without report of pain nor dyspnea 9. Independent with home exercise program 10. Good static and dynamic standing balance/tolerance Plan of Care/Treatment Plan: 1-2x/day, 7 days/week x 1 week. Plan of care has been reviewed with the PETROPHYSICIST providing the service under Physical Therapy direction. Initiate Physical Therapy intervention for strengthening, bed mobility, transfers, gait, stairs, balance training, use of assistive device. DISCHARGE RECOMMENDATIONS: Patient will benefit from home health PT services in order to progress mobility level using least restrictive assistive ambulatory device/using no device, assess home safety, identify additional equipment needs, and establish a functional maintenance program that will increase ability of patient to remain at home. TREATMENT CODE/TIME: 9716 2 x 30 minutes, 43291 x 17 minutes beginning at 9:11 AM. Thank you very much for this referral. Jazlyn Owens PT, DPT, CLT [facility]
--- NOTE | 2019-02-26 13:14 | W.INDIABCONS ---
Date of service: 02/26/19 Time of Service: 13:14 Diabetes Inpatient Consult DESCRIPTION/ASSESSMENT: Appreciate diabetes consult for Ms. Frye who is hospitalized with DKA. She has been treated with insulin drip. Current A1c 14 according to H&P. BMI 23 She is prescribed Trulicity however RN states she has not been taking it at home because she has vision problems and worried about giving herself injections without being able to test her blood sugar for the same reason. She was first seen for DSME for insulin instruction 2016 however she was not successful in administering insulin at that time and was recently seen by Jeimy Mackay RN CDE. This visit 3 months ago indicates oral medication prescription, however it is not on the med list. She has not been receptive to DSME in the past. During this hospitalization she has received 3u/hour insulin drip and insulin for carbohydrate at 1:10grams. THis has kept her blood sugars steady in mid-200s today. Attempted to visit her 2 times today but she has been unavailable. INTERVENTION: 3 units per hour indicates 72units in 24 hours as a basal dose. This obviously may be too high given her BMI. Her DKA and significant weight loss indicates poor pancreatic functioning for insulin production indicating a physiological need for some insulin to prevent metabolic changes. It would be useful for her to have someone oversee her insulin management until she can have eye surgery so she can see her glucometer and insulin pen for dosing. PLAN: Will visit her as she allows, however suggest some oversight at this point in time may be her only way out of the trap of not taking insulin because she can see because she can't have cataract surgery because of hyperglycemia. Time Spent in Nutritional Counseling and Treatment: 0 minutes face to face
--- NOTE | 2019-02-26 14:09 | DI.RAD_ITS ---
SYMPTOM/DIAGNOSIS: PAIN, S/P FALL LEFT FOOT: There is no evidence of a fracture or dislocation. LEFT FEMUR: There is no evidence of a left hip or femoral fracture. LEFT ANKLE: There is no evidence of a fracture or dislocation.
[2019-02-26 15:04] LABS: Anion Gap 10.3 mmol/L (3-11); BUN 7 mg/dL (7-18); CO2 18.7 mmol/L (21.0-32.0); CREATININE 0.99 mg/dL (0.55-1.02); Calcium 8.4 mg/dL (8.5-10.1); Chloride 109 mmol/L (98-107); Estimated GFR 55.45 (mL/min/1.73m2); Glucose 156 mg/dL (70-100); Magnesium 1.7 mg/dL (1.8-2.4); Potassium 3.9 mmol/L (3.5-5.1); Sodium 138 mmol/L (136-145)
--- NOTE | 2019-02-26 15:54 | PT.INTREAT ---
Date of service: 02/26/19 Time of Service: 15:54 PT Notes Inpatient Physical Therapy Treatment Note [facility] Date: 02/26/19 PRECAUTIONS: Fall, impaired vision SUBJECTIVE: Megan is anxious to see the doctor this afternoon, indicating she would like to be discharged home today. Megan reports I admitted myself, so I can dis-admit myself. OBJECTIVE: PAIN: No c/o pain BED MOBILITY/TRANSFERS Supine?sit: Min a with HOB flat Sit-stand: CGA Stand-sit:CGA GAIT Assistive Device: No AD (refused AD) Weight bearing: Full Assist: CGA Distance: 20' Deviation: Wall and furniture surfing due to impaired vision Static standing x2 minutes with CGA and U UE support ASSESSMENT: Patient was able to tolerate a progression in gait distance without use of assistive device with CGA, furniture and rae surfing due to impaired vision. Patient could benefit from use of assistive device with ambulation for safety and improved steadiness. PLAN: Continue with PT's POC TREATMENT CODE/TIME: 10 minutes; 10110
[2019-02-26] MEDS: Insulin Glargine 300 UNITS/3 ML PEN 15 UNITS SC (16:37)
[2019-02-26] MEDS: MAGNESIUM SULFATE 2 GM/50 ML BAG IVPB (16:45)
[2019-02-26] MEDS: Milk of Magnesia 30 ML CUP PO (18:40)
[2019-02-26] MEDS: Docusate Sodium 100 MG CAP PO (18:40)
[2019-02-26 18:44] LABS: Anion Gap 10.1 mmol/L (3-11); BUN 7 mg/dL (7-18); CO2 18.9 mmol/L (21.0-32.0); CREATININE 0.94 mg/dL (0.55-1.02); Calcium 8.8 mg/dL (8.5-10.1); Chloride 109 mmol/L (98-107); Estimated GFR 58.87 (mL/min/1.73m2); Glucose 184 mg/dL (70-100); Magnesium 2.2 mg/dL (1.8-2.4); Potassium 3.9 mmol/L (3.5-5.1); Sodium 138 mmol/L (136-145)
[2019-02-26 19:17] LABS: Ammonia 25 umol/L (11-32)
[2019-02-26] MEDS: Enoxaparin 40 MG/0.4 ML SYR SC (20:50)
[2019-02-27] VITALS (94 sets, daily range): BP systolic 87–117; BP diastolic 31–81; PULSE 60–81; RESP 4–31; TEMP 36.4–37.4; O2SAT 94–100
[2019-02-27 07:37] LABS: Absolute Basophil Count 0.01 k/cumm (0.0-0.2); Absolute Eosinophil Count 0.06 k/cumm (0.0-0.7); Absolute Lymphocyte Count 1.25 k/cumm (1.2-3.4); Absolute Monocyte Count 0.43 k/cumm (0.11-0.7); Absolute Neutrophil Count 1.72 k/cumm (1.2-6.7); Basophils % 0.3; Eosinophils % 1.7; HCT 31.7 % (36.0-46.0); HGB 10.9 g/dL (12.0-15.5); Mean Corp. HGB Concentration 34.4 g/dL (32.0-36.0); Mean Corpuscular Hemoglobin 30.7 pg (27.0-33.0); Mean Corpuscular Volume 89.3 fL (80-95); Mean Platelet Volume 11.2 fL (8.0-11.0); Monocytes % 12.4; Neutrophils % 49.6; Platelet Count 107 x1000/uL (130-400); RBC 3.55 m/cumm (4.00-5.20); RBC Distribution Width 12.5 % (11.7-14.6); White Blood Cell Count 3.47 k/cumm (4.4-10.8)
[2019-02-27 08:04] LABS: BUN 6 mg/dL (7-18); CREATININE 0.58 mg/dL (0.55-1.02); Calcium 8.7 mg/dL (8.5-10.1); Chloride 114 mmol/L (98-107); Glucose 71 mg/dL (70-100); Magnesium 1.8 mg/dL (1.8-2.4); Potassium 3.6 mmol/L (3.5-5.1); Sodium 145 mmol/L (136-145)
--- NOTE | 2019-02-27 08:05 | CMPROGNOTE_ITS ---
Care Management Progress Note S/O: Christina was sleeping soundly on her side. Per MD, Christina is considering transfer if recommended. CM continues to follow. A: 68 year old female admitted to [facility] for DKA P: Christina will return home when ready per MD. She will follow up with her PCP and plan of care as prescribed. She will transport via private vehicle with family.
--- NOTE | 2019-02-27 08:26 | PGE_ITS ---
Date of Service Date of service: 02/27/19 Time of Service: 08:26 Assessment and Plan (1) DKA (diabetic ketoacidoses): Current visit: Yes Status: Acute We are getting ready to d/c insulin gtt and transition to basal bolus insulin. The patient will have received 45 units of lantus this morning. (15 in am, 30 more now). The patient received a total of about 310 units of insulin over the last 24 hrs. Accounting for higher insulin resistance during severe hyperglycemia/DKA and improved insulin sensitivity now, we should probably aim at a total daily dose of around 200 units. Undershooting slightly, I am going to transition her to 45 units of lantus BID, mealtime novolog: CHO ratio of 1 unit: 5 grams of carbs, resistant corrective insulin. nursing educator to speak with the patient on strategies with difficulty seeing. Nursing verbalizes concerns about the potential safety of the patient administering her own insulin - nursing feels she does not quite grasp information presented to her and is wondering if she does not have a mild dementia. We will have to pay close attention to how the patient grasps the insulin teaching we provide - if there are any safety concerns, we might have to consider caregiver training. (2) Hypokalemia: Current visit: Yes Status: Acute Repleted - monitor (3) Hypomagnesemia: Current visit: Yes Status: Acute replete (4) Cataracts, bilateral: Current visit: Yes Status: Acute Patient cites difficulty seeing as the reason why she would not take insulin. She now agrees to count clicks and thinks she could work with a glucometer than talked to her. Diabetes education consult pending (5) Fatty liver: Current visit: No Status: Chronic Ammonia wnl. (6) Status post fall: Current visit: Yes Status: Acute Working with PT. XR's of LLE are negative for fracture. Importantly, the patient tells me she can't remember if she hit her head. I explained to her that ideally we would get at a minimum CT of her head - she is not sure about this, worrying about anxiety/claustrophobia. She is going to think about it and get back to me. (7) DVT prophylaxis: Current visit: Yes Status: Acute lovenox (8) Discharge planning issues: Current visit: Yes Status: Acute Full code - discussed this with patient. This is what she wants, though her COLST form says differently. Continues to require ICU while on insulin gtt - hoping to d/c this after the noon blood draw Subjective Interval history since last seen: Denies dizziness, chest pain, shortness of breath, nausea, vomiting. Would like to get out of ICU. States she is starving. Insulin gtt at 4.5 units/hr. In the last 24 hours, she has required 310 units. Talking about leaving AMA to nursing. To me she agrees to stay and learn how to give herself insulin. Afebrile. Big BM last night - evidently, had to disimpact herself. Exam Narrative Exam Narrative: General: middle-aged female, sometimes slow to respond, A&Ox3, appears dehydrated HEENT: EOMI, MMM Heart: RRR, no m/r/g Lungs: CTAB GI: abdomen is soft, nontender, nondistended Extremities: no e/c/c BLE's Objective Objective Clinical Data: Abnormal lab results 02/25/19 02/26/19 02/26/19 Range/Units 18:47 06:20 10:55 WBC (4.4-10.8) k/cumm RBC (4.00-5.20) m/cumm Hgb (12.0-15.5) g/dL Hct (36.0-46.0) % Plt Count (130-400) x1000/uL MPV (8.0-11.0) fL VBG pH 7.21 L (7.32-7.43) VBG pCO2 33 L (34-47) mm/Hg VBG pO2 (28-44) mm/Hg VBG HCO3 13 L (22-28) mmol/L VBG Total CO2 13 L (22-29) mmol/L VBG O2 Saturation 48 L (70-80) % VBG Base Excess (-3-3) mmol/L Chloride 108 H (98-107) mmol/L Carbon Dioxide 15.5 L (21.0-32.0) mmol/L Anion Gap 12.5 H (3-11) mmol/L BUN (7-18) mg/dL Glucose 218 H D (70-100) mg/dL Calcium 8.2 L (8.5-10.1) mg/dL Phosphorus 1.7 L (2.6-4.7) mg/dL Magnesium (1.8-2.4) mg/dL Creatine Kinase 199 H (26-192) U/L 02/26/19 02/26/19 02/26/19 Range/Units 10:55 14:34 18:25 WBC (4.4-10.8) k/cumm RBC (4.00-5.20) m/cumm Hgb (12.0-15.5) g/dL Hct (36.0-46.0) % Plt Count (130-400) x1000/uL MPV (8.0-11.0) fL VBG pH (7.32-7.43) VBG pCO2 30 L (34-47) mm/Hg VBG pO2 57 H (28-44) mm/Hg VBG HCO3 16 L (22-28) mmol/L VBG Total CO2 15 L (22-29) mmol/L VBG O2 Saturation 91 H (70-80) % VBG Base Excess -10.2 L (-3-3) mmol/L Chloride 109 H 109 H (98-107) mmol/L Carbon Dioxide 18.7 L 18.9 L (21.0-32.0) mmol/L Anion Gap (3-11) mmol/L BUN (7-18) mg/dL Glucose 156 H 184 H (70-100) mg/dL Calcium 8.4 L (8.5-10.1) mg/dL Phosphorus (2.6-4.7) mg/dL Magnesium 1.7 L (1.8-2.4) mg/dL Creatine Kinase (26-192) U/L 02/27/19 02/27/19 Range/Units 06:27 06:27 WBC 3.47 L (4.4-10.8) k/cumm RBC 3.55 L (4.00-5.20) m/cumm Hgb 10.9 L (12.0-15.5) g/dL Hct 31.7 L (36.0-46.0) % Plt Count 107 L (130-400) x1000/uL MPV 11.2 H (8.0-11.0) fL VBG pH (7.32-7.43) VBG pCO2 (34-47) mm/Hg VBG pO2 (28-44) mm/Hg VBG HCO3 (22-28) mmol/L VBG Total CO2 (22-29) mmol/L VBG O2 Saturation (70-80) % VBG Base Excess (-3-3) mmol/L Chloride 114 H (98-107) mmol/L Carbon Dioxide 19.0 L (21.0-32.0) mmol/L Anion Gap 12.0 H (3-11) mmol/L BUN 6 L (7-18) mg/dL Glucose (70-100) mg/dL Calcium (8.5-10.1) mg/dL Phosphorus (2.6-4.7) mg/dL Magnesium (1.8-2.4) mg/dL Creatine Kinase (26-192) U/L Vital Signs Temperature 37.4 C 02/27/19 02:50 Temperature Source Temporal Artery Scan 02/27/19 02:50 Pulse 65 02/27/19 05:00 Pulse 68 02/27/19 05:00 Respiratory Rate 16 02/27/19 05:00 Respiratory Effort Non-Labored 02/27/19 02:50 Respiratory Depth Normal 02/27/19 02:50 Respiratory Pattern Normal 02/27/19 02:50 Blood Pressure 99/63 L 02/27/19 05:00 Blood Pressure Mean 71 02/27/19 05:00 Blood Pressure Position Supine 02/26/19 16:00 Pulse Oximetry 96 02/26/19 23:28 Oxygen Delivery Method Room Air 02/27/19 02:50 Oxygen Flow Rate 0 02/27/19 02:50 Pain Level 0 02/27/19 02:50 Intake & Output 02/26/19 02/26/19 02/27/19 11:59 23:59 11:59 Intake Total 3388.466 / 4924.500 1536.034 / 4924.500 2496.534 / 2496.534 Output Total 900 / 1875 975 / 1875 450 / 450 Balance 2488.466 / 3049.500 561.034 / 3049.500 204.534 / 2046.534 Weight 62.6 kg 61.8 kg Intake: IV 2221.466 / 3407.500 1186.034 / 3407.500 534 / 534 Oral 1167 / 1517 350 / 1517 480 / 480 Output: Urine 900 / 1875 975 / 1875 450 / 450 Other: Urine Color Yellow Yellow Yellow Urine Appearance Clear Clear Clear Sediment Urine Odor Normal Normal Normal Comment Pt states that there has been no change in urination with the onset of symptoms and she has not been going more than normal Stool Occult Blood Negative Stool Size Copious Stool Characteristics Soft Formed Voiding Methods Bedside Commode Laboratory Results WBC 3.47 k/cumm (4.4-10.8) L 02/27/19 06:27 RBC 3.55 m/cumm (4.00-5.20) L 02/27/19 06:27 Hgb 10.9 g/dL (12.0-15.5) L 02/27/19 06:27 Hct 31.7 % (36.0-46.0) L 02/27/19 06:27 MCV 89.3 fL (80-95) 02/27/19 06:27 MCH 30.7 pg (27.0-33.0) 02/27/19 06:27 MCHC 34.4 g/dL (32.0-36.0) 02/27/19 06:27 RDW 12.5 % (11.7-14.6) 02/27/19 06:27 Plt Count 107 x1000/uL (130-400) L 02/27/19 06:27 MPV 11.2 fL (8.0-11.0) H 02/27/19 06:27 Immature Gran % 0.0 02/27/19 06:27 49.6 02/27/19 06:27 36.0 02/27/19 06:27 12.4 02/27/19 06:27 1.7 02/27/19 06:27 0.3 02/27/19 06:27 Absolute Neutrophils 1.72 k/cumm (1.2-6.7) 02/27/19 06:27 Absolute Lymphocytes 1.25 k/cumm (1.2-3.4) 02/27/19 06:27 Absolute Monocytes 0.43 k/cumm (0.11-0.7) 02/27/19 06:27 Absolute Eosinophils 0.06 k/cumm (0.0-0.7) 02/27/19 06:27 Absolute Basophils 0.01 k/cumm (0.0-0.2) 02/27/19 06:27 VBG pH 7.33 (7.32-7.43) 02/26/19 10:55 VBG pCO2 30 mm/Hg (34-47) L 02/26/19 10:55 VBG pO2 57 mm/Hg (28-44) H 02/26/19 10:55 VBG HCO3 16 mmol/L (22-28) L 02/26/19 10:55 VBG Total CO2 15 mmol/L (22-29) L 02/26/19 10:55 VBG O2 Saturation 91 % (70-80) H 02/26/19 10:55 VBG Base Excess -10.2 mmol/L (-3-3) L 02/26/19 10:55 Sodium 145 mmol/L (136-145) 02/27/19 06:27 Potassium 3.6 mmol/L (3.5-5.1) 02/27/19 06:27 Chloride 114 mmol/L (98-107) H 02/27/19 06:27 Carbon Dioxide 19.0 mmol/L (21.0-32.0) L 02/27/19 06:27 12.0 mmol/L (3-11) H 02/27/19 06:27 BUN 6 mg/dL (7-18) L 02/27/19 06:27 0.58 mg/dL (0.55-1.02) D 02/27/19 06:27 >= 60.00 (mL/min/1.73m2) 02/27/19 06:27 Glucose 71 mg/dL (70-100) D 02/27/19 06:27 POC Glucose Cancelled 02/25/19 18:39 Calcium 8.7 mg/dL (8.5-10.1) 02/27/19 06:27 Phosphorus 1.7 mg/dL (2.6-4.7) L 02/26/19 06:20 Magnesium 1.8 mg/dL (1.8-2.4) 02/27/19 06:27 0.6 mg/dL (0.2-1.0) 02/25/19 16:45 AST 17 U/L (15-37) 02/25/19 16:45 ALT 22 U/L (12-78) 02/25/19 16:45 121 U/L (46-116) H 02/25/19 16:45 25 umol/L (11-32) 02/26/19 18:25 199 U/L (26-192) H 02/26/19 06:20 7.4 g/dL (6.4-8.2) 02/25/19 16:45 3.5 g/dL (3.4-5.0) 02/25/19 16:45 Yellow (Yellow) 02/25/19 17:40 Clear (Clear) 02/25/19 17:40 5.5 (5-8) 02/25/19 17:40 Ur Specific [place] 1.010 (1.005-1.025) 02/25/19 17:40 Negative mg/dL (Negative) 02/25/19 17:40 >=160 mg/dL (Negative) H 02/25/19 17:40 Negative (Negative) 02/25/19 17:40 Negative (Negative) 02/25/19 17:40 Small (Negative) H 02/25/19 17:40 0.2 EU/dL (Up TO 0.2) 02/25/19 17:40 Ur Leukocyte Esterase Negative (Negative) 02/25/19 17:40 500 mg/dL (Negative) H 02/25/19 17:40
[2019-02-27] MEDS: Insulin Glargine 300 UNITS/3 ML PEN 15 UNITS SC (08:49)
[2019-02-27] MEDS: Insulin Aspart 300 UNITS/3 ML PEN SC ×5 (09:11→22:15)
[2019-02-27] MEDS: Docusate Sodium 100 MG CAP PO ×2 (10:04→20:10)
[2019-02-27 12:31] LABS: HCO3 (Venous) 21 mmol/L (22-28); O2 Sat (Venous) 61 % (70-80); TCO2 (Venous) 19 mmol/L (22-29); pCO2 (Venous) 39 mm/Hg (34-47); pH (Venous) 7.33 (7.32-7.43); pO2 (Venous) 32 mm/Hg (28-44)
[2019-02-27 12:33] LABS: BE (Venous) -5.5 mmol/L (-3-3)
[2019-02-27 12:47] LABS: Anion Gap 9.7 mmol/L (3-11); BUN 5 mg/dL (7-18); CO2 20.3 mmol/L (21.0-32.0); Calcium 9.1 mg/dL (8.5-10.1); Chloride 112 mmol/L (98-107); Glucose 119 mg/dL (70-100); Potassium 4.1 mmol/L (3.5-5.1); Sodium 142 mmol/L (136-145)
[2019-02-27 12:48] LABS: Magnesium 1.7 mg/dL (1.8-2.4)
[2019-02-27] MEDS: Insulin Glargine 300 UNITS/3 ML PEN 30 UNITS SC (12:49)
[2019-02-27 12:57] LABS: Troponin I < 0.05 ng/mL (0.00-0.06)
--- NOTE | 2019-02-27 13:23 | DIABASSESS_ITS ---
Date of service: 02/27/19 Time of Service: 13:23 Diabetes Note NOTE: Met with Rasheeda Frye to instruct on insulin administration as this is her plan for discharge. She has been instructed in the past on injection techniques and she recognizes this is a review. She is hoping to get the Freestyle Bessy. This is available only for people taking multiple insulin dosing (basal/bolus) daily. She states she does not have anyone nearby who looks in on her. She talks with her mother in [place] daily and her son in [place] daily. SHe has [facility] set to call them if she asks, in an emergency. It is unclear if she will be taking mealtime insulin at this time. She does have difficulty getting to the pharmacy and would prefer a mail order program to obtain her supplies and medication. INTERVENTION: Instructed on use of insulin pen and she is able to return demonstration dialing 40units accurately. Reviewed insulin administration per protocol including disposal of needles, injection sites, hypoglycemia symptoms and treatment. She is left a pen and needles to practice dialing and injecting insulin. She will have someone check that her dosage is correct while practicing. PLAN: I will follow up with her Saturday morning prior to discharge. She will need a glucometer. She wishes for the Bessy if she is on multiple insulin dosing. In the meantime will see if she can use another glucometer. Time Spent in Nutritional Counseling and Treatment: 20 minutes face to face
--- NOTE | 2019-02-27 13:57 | W.PM.PROGNOT ---
Date of Service Date of service: 02/27/19 Time of Service: 13:57 Subjective Interval history since last seen: Nursing called my attention to T waves inversion in lead 2 on tele. Patient is chest pain free. We are unable to locate EKG from ED, but on EKG now she does have inferio-lateral T wave inversion. This is new from the EKG done in 2006. First troponin is negative. Will give asa now and obtain echo. I do not think we can trust the fact that the patient is chest pain free -she most certainly has autonomic neuropathy and would not necessarily get the chest pain. Discussed the situation with patient. She states that she would have to think long and hard about any kind of procedure or transfer. She is not consenting to either at this time. I did discuss with her this could be a question of life and - she verbalizes understanding. Objective Objective Clinical Data: Abnormal lab results 02/26/19 02/26/19 02/27/19 Range/Units 14:34 18:25 06:27 WBC (4.4-10.8) k/cumm RBC (4.00-5.20) m/cumm Hgb (12.0-15.5) g/dL Hct (36.0-46.0) % Plt Count (130-400) x1000/uL MPV (8.0-11.0) fL VBG HCO3 (22-28) mmol/L VBG Total CO2 (22-29) mmol/L VBG O2 Saturation (70-80) % VBG Base Excess (-3-3) mmol/L Chloride 109 H 109 H 114 H (98-107) mmol/L Carbon Dioxide 18.7 L 18.9 L 19.0 L (21.0-32.0) mmol/L Anion Gap 12.0 H (3-11) mmol/L BUN 6 L (7-18) mg/dL Glucose 156 H 184 H (70-100) mg/dL Calcium 8.4 L (8.5-10.1) mg/dL Magnesium 1.7 L (1.8-2.4) mg/dL 02/27/19 02/27/19 02/27/19 Range/Units 06:27 12:22 12:22 WBC 3.47 L (4.4-10.8) k/cumm RBC 3.55 L (4.00-5.20) m/cumm Hgb 10.9 L (12.0-15.5) g/dL Hct 31.7 L (36.0-46.0) % Plt Count 107 L (130-400) x1000/uL MPV 11.2 H (8.0-11.0) fL VBG HCO3 (22-28) mmol/L VBG Total CO2 (22-29) mmol/L VBG O2 Saturation (70-80) % VBG Base Excess (-3-3) mmol/L Chloride 112 H (98-107) mmol/L Carbon Dioxide 20.3 L (21.0-32.0) mmol/L Anion Gap (3-11) mmol/L BUN 5 L (7-18) mg/dL Glucose 119 H (70-100) mg/dL Calcium (8.5-10.1) mg/dL Magnesium 1.7 L (1.8-2.4) mg/dL 02/27/19 Range/Units 12:22 WBC (4.4-10.8) k/cumm RBC (4.00-5.20) m/cumm Hgb (12.0-15.5) g/dL Hct (36.0-46.0) % Plt Count (130-400) x1000/uL MPV (8.0-11.0) fL VBG HCO3 21 L (22-28) mmol/L VBG Total CO2 19 L (22-29) mmol/L VBG O2 Saturation 61 L (70-80) % VBG Base Excess -5.5 L (-3-3) mmol/L Chloride (98-107) mmol/L Carbon Dioxide (21.0-32.0) mmol/L Anion Gap (3-11) mmol/L BUN (7-18) mg/dL Glucose (70-100) mg/dL Calcium (8.5-10.1) mg/dL Magnesium (1.8-2.4) mg/dL Vital Signs Temperature 36.8 C 02/27/19 07:29 Temperature Source Temporal Artery Scan 02/27/19 07:29 Pulse 63 02/27/19 10:38 Pulse 65 02/27/19 11:20 Respiratory Rate 19 02/27/19 11:20 Respiratory Effort 02/27/19 07:29 Respiratory Depth Normal 02/27/19 07:29 Respiratory Pattern Normal 02/27/19 07:29 Blood Pressure 107/69 02/27/19 10:38 Blood Pressure Mean 77 02/27/19 10:38 Blood Pressure Position Supine 02/27/19 07:29 Pulse Oximetry 94 L 02/27/19 07:29 Oxygen Delivery Method Room Air 02/27/19 07:29 Oxygen Flow Rate 0 02/27/19 07:29 Pain Level 0 02/27/19 07:29 Intake & Output 02/26/19 02/27/19 02/27/19 23:59 11:59 23:59 Intake Total 1536.034 / 4924.500 2509.909 / 2518.884 8.975 / 2518.884 Output Total 975 / 1875 450 / 450 Balance 561.034 / 3049.500 2059.909 / 8.884 8.975 / 8.884 Weight 61.8 kg Intake: IV 1186.034 / 3407.500 2029.909 / 2038.884 8.975 / 2038.884 Oral 350 / 1517 480 / 480 Output: Urine 975 / 1875 450 / 450 Other: Urine Color Yellow Yellow Urine Appearance Clear Clear Sediment Urine Odor Normal Normal Comment Denies need to void at this time Stool Occult Blood Negative Stool Size Copious Stool Characteristics Soft Formed Voiding Methods Bedside Commode Laboratory Results WBC 3.47 k/cumm (4.4-10.8) L 02/27/19 06:27 RBC 3.55 m/cumm (4.00-5.20) L 02/27/19 06:27 Hgb 10.9 g/dL (12.0-15.5) L 02/27/19 06:27 Hct 31.7 % (36.0-46.0) L 02/27/19 06:27 MCV 89.3 fL (80-95) 02/27/19 06:27 MCH 30.7 pg (27.0-33.0) 02/27/19 06:27 MCHC 34.4 g/dL (32.0-36.0) 02/27/19 06:27 RDW 12.5 % (11.7-14.6) 02/27/19 06:27 Plt Count 107 x1000/uL (130-400) L 02/27/19 06:27 MPV 11.2 fL (8.0-11.0) H 02/27/19 06:27 Immature Gran % 0.0 02/27/19 06:27 49.6 02/27/19 06:27 36.0 02/27/19 06:27 12.4 02/27/19 06:27 1.7 02/27/19 06:27 0.3 02/27/19 06:27 Absolute Neutrophils 1.72 k/cumm (1.2-6.7) 02/27/19 06:27 Absolute Lymphocytes 1.25 k/cumm (1.2-3.4) 02/27/19 06:27 Absolute Monocytes 0.43 k/cumm (0.11-0.7) 02/27/19 06:27 Absolute Eosinophils 0.06 k/cumm (0.0-0.7) 02/27/19 06:27 Absolute Basophils 0.01 k/cumm (0.0-0.2) 02/27/19 06:27 VBG pH 7.33 (7.32-7.43) 02/27/19 12:22 VBG pCO2 39 mm/Hg (34-47) 02/27/19 12:22 VBG pO2 32 mm/Hg (28-44) 02/27/19 12:22 VBG HCO3 21 mmol/L (22-28) L 02/27/19 12:22 VBG Total CO2 19 mmol/L (22-29) L 02/27/19 12:22 VBG O2 Saturation 61 % (70-80) L 02/27/19 12:22 VBG Base Excess -5.5 mmol/L (-3-3) L 02/27/19 12:22 Sodium 142 mmol/L (136-145) 02/27/19 12:22 Potassium 4.1 mmol/L (3.5-5.1) 02/27/19 12:22 Chloride 112 mmol/L (98-107) H 02/27/19 12:22 Carbon Dioxide 20.3 mmol/L (21.0-32.0) L 02/27/19 12:22 9.7 mmol/L (3-11) 02/27/19 12:22 BUN 5 mg/dL (7-18) L 02/27/19 12:22 0.70 mg/dL (0.55-1.02) 02/27/19 12:22 >= 60.00 (mL/min/1.73m2) 02/27/19 12:22 Glucose 119 mg/dL (70-100) H 02/27/19 12:22 POC Glucose Cancelled 02/25/19 18:39 Calcium 9.1 mg/dL (8.5-10.1) 02/27/19 12:22 Phosphorus 1.7 mg/dL (2.6-4.7) L 02/26/19 06:20 Magnesium 1.7 mg/dL (1.8-2.4) L 02/27/19 12:22 0.6 mg/dL (0.2-1.0) 02/25/19 16:45 AST 17 U/L (15-37) 02/25/19 16:45 ALT 22 U/L (12-78) 02/25/19 16:45 121 U/L (46-116) H 02/25/19 16:45 25 umol/L (11-32) 02/26/19 18:25 199 U/L (26-192) H 02/26/19 06:20 < 0.05 ng/mL (0.00-0.06) 02/27/19 12:22 7.4 g/dL (6.4-8.2) 02/25/19 16:45 3.5 g/dL (3.4-5.0) 02/25/19 16:45 Yellow (Yellow) 02/25/19 17:40 Clear (Clear) 02/25/19 17:40 5.5 (5-8) 02/25/19 17:40 Ur Specific [place] 1.010 (1.005-1.025) 02/25/19 17:40 Negative mg/dL (Negative) 02/25/19 17:40 >=160 mg/dL (Negative) H 02/25/19 17:40 Negative (Negative) 02/25/19 17:40 Negative (Negative) 02/25/19 17:40 Small (Negative) H 02/25/19 17:40 0.2 EU/dL (Up TO 0.2) 02/25/19 17:40 Ur Leukocyte Esterase Negative (Negative) 02/25/19 17:40 500 mg/dL (Negative) H 02/25/19 17:40
[2019-02-27] MEDS: Normal Saline 1,000 ML 150 ML IV ×3 (14:25→20:50)
[2019-02-27] MEDS: Aspirin E.C. 325 MG TABEC PO (14:31)
[2019-02-27] MEDS: MAGNESIUM SULFATE 2 GM/50 ML BAG IVPB (14:32)
--- NOTE | 2019-02-27 14:53 | MERGE_ITS ---
*[facility]* *[facility]* [address] [place] [address] Date of study: 02/27/2019 Transthoracic Echocardiography M-mode, complete 2D, complete spectral Doppler, and color Doppler *STUDY CONCLUSIONS* Summary: 1. Left ventricle: The cavity size was normal. Wall thickness was normal. Systolic function was normal. The estimated ejection fraction was 55-60%. Wall motion was normal; there were no regional wall motion abnormalities. 2. Aortic valve: Transvalvular velocity was minimally increased. There was very mild stenosis. 3. Right ventricle: The cavity size was normal. Wall thickness was normal. Systolic function was normal. RV systolic pressure (S, est): 32mm Hg. 4. Pulmonary arteries: Pulmonary systolic pressure was at the upper limits of normal. *PATIENT PRESENTATION* Height: 165.1cm (65in ) S/D Pressure: 113 / 59 Weight: 61.7kg (135.7lb ) BSA: 1.69m^2 Test start time: 03:00 PM. Test stop time: 03:45 PM. PERFORMING Unknown PERFORMING [facility] ATM MANAGER Trudy Foote [facility] CONSULTING Wendy Lin ORDERING Wendy Lin REFERRING Wendy Lin *PROCEDURE DATA* Procedure information: This study was interpreted by [facility]. Pertinent images and digital data are archived for permanent storage and are available for subsequent review. No prior study was available for comparison. Study status: STAT. Transthoracic echocardiography. M-mode, complete 2D, complete spectral Doppler, and color Doppler. A Transthoracic Echocardiogram was performed. Scanning was performed from the parasternal, apical, subcostal, and suprasternal notch acoustic windows. Images were obtained using an [employer] 2000 cardiac ultrasound machine. Image quality was fair. Study completion: The patient tolerated the procedure well. History: PMH: EKG changes. *CARDIAC ANATOMY* Left ventricle: The cavity size was normal. Wall thickness was normal. Systolic function was normal. The estimated ejection fraction was 55-60%. Wall motion was normal; there were no regional wall motion abnormalities. Aortic valve: Trileaflet; mildly thickened, mildly calcified leaflets. Mobility was not restricted. Doppler: Transvalvular velocity was minimally increased. There was very mild stenosis. There was no significant regurgitation. VTI ratio of LVOT to aortic valve: 0.58. Valve area (VTI): 1.8cm^2. Indexed valve area (VTI): 1cm^2/m^2. Peak velocity ratio of LVOT to aortic valve: 0.48. Valve area (Vmax): 1.5cm^2. Indexed valve area (Vmax): 0.9cm^2/m^2. Mean velocity ratio of LVOT to aortic valve: 0.47. Valve area (Vmean): 1.4cm^2. Indexed valve area (Vmean): 0.8cm^2/m^2. Mean gradient (S): 8mm Hg. Peak gradient (S): 14.5mm Hg. Aorta: Aortic root: The aortic root was normal in size. Ascending aorta: The ascending aorta was at upper normal limits. Mitral valve: Structurally normal valve. Mobility was not restricted. Doppler: Transvalvular velocity was within the normal range. There was no evidence for stenosis. There was no significant regurgitation. Valve area by pressure half-time: 3.6cm^2. Indexed valve area by pressure half-time: 2.2cm^2/m^2. Left atrium: The atrium was at the upper limits of normal in size. Right ventricle: The cavity size was normal. Wall thickness was normal. Systolic function was normal. Pulmonic valve: Doppler: Transvalvular velocity was within the normal range. There was no evidence for stenosis. There was no significant regurgitation. Peak gradient (S): 5.5mm Hg. Tricuspid valve: Structurally normal valve. Doppler: Transvalvular velocity was within the normal range. There was no evidence for stenosis. There was no significant regurgitation. Pulmonary artery: Pulmonary systolic pressure was at the upper limits of normal. Right atrium: The atrium was normal in size. Pericardium: There was no pericardial effusion. Systemic veins: Inferior vena cava: The vessel was normal in size. Measurements Left ventricle Value Reference LV ID, ED, PLAX 4.3 cm 3.5 - 6.0 LV ID, ES, PLAX 3.2 cm 2.1 - 4.0 LV PW thickness, ED, PLAX 1.0 cm LV end-diastolic volume, 1-p A2C 81 ml LV ejection fraction, 1-p A2C 57 % LV end-diastolic volume, 1-p A4C 60 ml LV ejection fraction, 1-p A4C 50 % LV e', lateral 0.099 m/sec LV E/e', lateral 6 LV e', medial 0.086 m/sec LV E/e', medial 7 LV e', average 0.093 m/sec LV E/e', average 7 Ventricular septum Value Reference IVS thickness, ED, PLAX 1.0 cm LVOT Value Reference LVOT ID, A-P 2.0 cm LVOT area 3 cm^2 LVOT peak velocity, S 0.92 m/sec LVOT mean velocity, S 0.63 m/sec LVOT VTI, S 20.4 cm LVOT peak gradient, S 3.4 mm Hg LVOT mean gradient, S 1.8 mm Hg Stroke volume (SV), LVOT DP 61 ml Stroke index (SV/bsa), LVOT DP 36 ml/m^2 Aortic valve Value Reference Aortic valve peak velocity, S 1.9 m/sec Aortic valve mean velocity, S 1.3 m/sec Aortic valve VTI, S 35.0 cm Aortic mean gradient, S 8 mm Hg Aortic peak gradient, S 14.5 mm Hg VTI ratio, LVOT/AV 0.58 Aortic valve area, VTI 1.8 cm^2 Velocity ratio, peak, LVOT/AV 0.48 Aortic valve area, peak velocity 1.5 cm^2 Velocity ratio, mean, LVOT/AV 0.47 Aortic valve area, mean velocity 1.4 cm^2 Aortic valve area/bsa, mean velocity 0.8 cm^2/m^2 Aorta Value Reference Aortic root ID, ED 3.3 cm Ascending aorta ID, A-P, S 3.6 cm Left atrium Value Reference LA ID, A-P, ES 4.2 cm LA ID/bsa, A-P (H) 2.5 cm/m^2 <=2.2 LA volume, ES, 2-p 57 ml LA volume/bsa, ES, 2-p 34 ml/m^2 LA/aortic root ratio 1.28 Mitral valve Value Reference Mitral E-wave peak velocity 0.64 m/sec Mitral A-wave peak velocity 0.63 m/sec Mitral deceleration time 209 ms 150 - 230 Mitral pressure half-time 60 ms Mitral E/A ratio, peak 1.01 Mitral valve area, PHT, DP 3.6 cm^2 Pulmonary arteries Value Reference PA pressure, S, DP 27 mm Hg <=30 Tricuspid valve Value Reference Tricuspid regurg peak velocity 2.3 m/sec Tricuspid peak RV-RA gradient 22 mm Hg Right atrium Value Reference RA area, ES, A4C 15.6 cm^2 8.3 - 19.5 Systemic veins Value Reference Estimated CVP 10 mm Hg Right ventricle Value Reference RV pressure, S, DP (H) 32 mm Hg <=30 Pulmonic valve Value Reference Pulmonic peak gradient, S 5.5 mm Hg Legend: (L) and (H) tereso values outside specified reference range. I have personally reviewed the images and have reviewed and edited the reported findings. Electronically signed by Pedro Kang 02/27/2019 18:47
--- NOTE | 2019-02-27 14:58 | CHAPLAIN ---
Christina was sitting up on the edge of her bed when I visited. She told me she wasn't there yet, when I introduced myself as the interfaith technology assistant. I assured her that I didn't think she was dying, and that I visit most patients, and was checking in with her to let her know banjo repairer is available to her. She said she was told she was being moved out of ICU, but that it would probably take a long time, because she waited in the ER for hours without being moved up to the ICU when she was told she was being admitted. She thanked me for visiting but said she was fine.
--- NOTE | 2019-02-27 15:24 | PHARADMIT ---
Admission Pharmacy Clinical Review DKA Code Status Full Code Current Weight Wgt-61.8 kg Renally Cleared and Narrow Therapeutic Index Meds CrCl~ 58.9 mL/min Meds-OK QTc Value / Action Taken QTc-467 (none) BP Control, Fever BP- 107/69 Tmax- 36.8C Electrolytes reviewed Na-142 K+4.1 Mag-1.7 Phos-1.7 DVT Prophylaxis Lovenox Opiate Usage / Scheduled Bowel Regimen Ordered No Yes Plt/SCr for Heparin / Enoxaparin Plts-107 SCr-0.70 INR for Warfarin na H/H stable, WBC/Bands H&H- 10.9/31.7 WBC- 3.47 Antibiotic appropriateness none Cultures and Sensitivities none Surgical ABX d/c within 24 hr na DM control / Insulin Dosing BG- 557 ^ 40^299^283^385^3063^218^156^ 184 ^ NOW--71 (Insulin drip dc'd on Lantus & Aspart) Heart Failure (Check EF%) (TANA's, B-Block, Diuretics) none IV to PO Switch No Home Meds Reviewed Yes Home Meds Not Ordered Trulicity, TAC Cream, SeaSalt Comments
--- NOTE | 2019-02-27 15:29 | PT.INNT ---
Date of service: 02/27/19 Time of Service: 15:30 PT Notes 02/27/19 Held afternoon PT session, as per nursing request, due to change in medical status. Will attempt to resume PT services tomorrow morning, if appropriate.
[2019-02-27 17:02] LABS: Anion Gap 9.7 mmol/L (3-11); BUN 7 mg/dL (7-18); CO2 20.3 mmol/L (21.0-32.0); CREATININE 0.57 mg/dL (0.55-1.02); Chloride 109 mmol/L (98-107); Glucose 231 mg/dL (70-100); Magnesium 2.2 mg/dL (1.8-2.4); Potassium 4.4 mmol/L (3.5-5.1); Sodium 139 mmol/L (136-145)
[2019-02-27 17:57] LABS: Troponin I < 0.05 ng/mL (0.00-0.06)
--- NOTE | 2019-02-27 18:00 | PTTR_ITS ---
Date of service: 02/27/19 Time of Service: 11:48 PT Notes Inpatient Physical Therapy Treatment Note [facility] Date: 02/27/2019 PRECAUTIONS: Fall. Standard. SUBJECTIVE: Patient reports that she slept better last night but she still hopes that she can transferred to the [facility] floor today. She denies nausea, dizziness, and vomitting prior to session. She reports no chest pain nor headache throughout PT session. Patient remains to be resistant about using a front wheeled walker at home at this time stating that she has a lot of steps at home that will limit her use of the walker. Patient was advised that the next PT session attempt for gait training using single-point cane will be done. OBJECTIVE: Patient seen resting in bed. monitor and storage bin tender still in place. Escobedo catheter removed. IV in the right UE. PAIN: Patient did not report any discomfort nor pain on her left hip ankle even after level surface ambulation in the ICU. BED MOBILITY/TRANSFERS Rolling L/R: Supervision Supine-sit: Supervision Sit-supine: Supervision Sit-stand: SBA Stand-sit: SBA Bed-Chair: SBA Chair-bed: SBA GAIT Assistive Device: Patient agreeable to use FWW to see how her activity tolerance will be increased with the use of an AD Weight bearing: FWB Assist: SBA Distance: 80 feet Deviation: Significantly increased gait velocity as compared to without the use of an assistive device. No report of discomfort on left ankle nor on the left hip during left stance phase ssist using step to/step through gait pattern with pain report of 0/10. Verbal cueing provided for gait technique, posture, activity pacing, and deep breathing activity. ASSESSMENT: Patient demonstrates good tolerance to physical therapy session with observed improvement in terms of pain level, activity tolerance, self- efficacy/confidence, and participation level. PLAN: Patient to progress with mobility level, functional performance, and knowledge of HEP to achieve previously established goals. Patient will benefit from home health PT services in order to progress mobility level using least restrictive assistive ambulatory device/using no device, assess home safety, identify additional equipment needs, and establish a functional maintenance program that will increase ability of patient to remain at home. TREATMENT CODE/TIME: 9753 0 x 48 minutes beginning at 11:48 AM.
--- NOTE | 2019-02-27 18:10 | DIABASSESS_ITS ---
Date of service: 02/27/19 Time of Service: 18:10 Diabetes Note NOTE: Have attempted to follow up with her regarding insulin dosing and injection technique. She has not practiced yet. Preference for CGM per Dr. Lin and this would be helpful if she could read her blood sugars from the pie dough roller. There do not appear to be any talking CGMs however there is a [employer] glucometer that may be helpful if she can follow the process to obtain blood sample. The glucometer offers her step by step volcalized instructions. Concern for her safety regarding whether she can distinguish between the two insulins if she is prescribed basal/bolus insulin and administer the correct dose of the correct insulin pen. Will attempt to work with her regarding this over the next few days. Will follow blood sugars in the meantime. Time Spent in Nutritional Counseling and Treatment: 3 minutes face to face
[2019-02-27] MEDS: Enoxaparin 40 MG/0.4 ML SYR SC (20:10)
[2019-02-27] MEDS: Insulin Glargine 300 UNITS/3 ML PEN 45 UNITS SC (20:11)
[2019-02-27 20:30] LABS: Anion Gap 11.2 mmol/L (3-11); BUN 8 mg/dL (7-18); CO2 18.8 mmol/L (21.0-32.0); CREATININE 0.71 mg/dL (0.55-1.02); Calcium 8.5 mg/dL (8.5-10.1); Chloride 108 mmol/L (98-107); Glucose 364 mg/dL (70-100); Magnesium 2.1 mg/dL (1.8-2.4); Potassium 4.8 mmol/L (3.5-5.1); Sodium 138 mmol/L (136-145)
[2019-02-28] VITALS (20 sets, daily range): BP systolic 115–136; BP diastolic 72–80; PULSE 36–77; RESP 12–22; TEMP 35.9–36.9; O2SAT 96–100
[2019-02-28] MEDS: Normal Saline 1,000 ML 150 ML IV ×3 (03:35→17:42)
[2019-02-28 07:37] LABS: Absolute Basophil Count 0.03 k/cumm (0.0-0.2); Absolute Eosinophil Count 0.07 k/cumm (0.0-0.7); Absolute Lymphocyte Count 1.18 k/cumm (1.2-3.4); Absolute Monocyte Count 0.33 k/cumm (0.11-0.7); Absolute Neutrophil Count 1.26 k/cumm (1.2-6.7); Eosinophils % 2.4; HCT 35.1 % (36.0-46.0); HGB 11.7 g/dL (12.0-15.5); Lymphocytes % 41.1; Mean Corp. HGB Concentration 33.3 g/dL (32.0-36.0); Mean Corpuscular Hemoglobin 30.9 pg (27.0-33.0); Mean Corpuscular Volume 92.6 fL (80-95); Mean Platelet Volume 11.4 fL (8.0-11.0); Monocytes % 11.5; Platelet Count 103 x1000/uL (130-400); RBC 3.79 m/cumm (4.00-5.20); RBC Distribution Width 13.2 % (11.7-14.6); White Blood Cell Count 2.87 k/cumm (4.4-10.8)
[2019-02-28 07:42] LABS: BUN 7 mg/dL (7-18); CREATININE 0.58 mg/dL (0.55-1.02); Calcium 8.7 mg/dL (8.5-10.1); Chloride 111 mmol/L (98-107); Glucose 141 mg/dL (70-100); Magnesium 1.9 mg/dL (1.8-2.4); Sodium 142 mmol/L (136-145)
[2019-02-28] MEDS: Docusate Sodium 100 MG CAP PO ×2 (08:05→20:35)
[2019-02-28] MEDS: Aspirin E.C. 81 MG TABEC PO (08:05)
[2019-02-28] MEDS: Insulin Glargine 300 UNITS/3 ML PEN 45 UNITS SC (08:07)
[2019-02-28] MEDS: Insulin Aspart 300 UNITS/3 ML PEN SC ×3 (08:11→17:11)
[2019-02-28] MEDS: Magnesium Oxide 400 MG TAB PO (10:28)
--- NOTE | 2019-02-28 10:38 | CMPROGNOTE_ITS ---
Care Management Progress Note S/O: Christina was sitting up discussing the plan of care with the Hospitalist. She has accepted the need for Insulin and has started to learn read the screen.about self injections. Due to eyesight she has difficulty reading the glucose monitor but has been learning to measure the correct dose of insulin by listening for the click. Feels she will be able to learn to become independent. Would like to have a glucose meter that announces the reading rather than struggle to A: 68 year old female admitted to [facility] for DKA P: Christina will return home with new services for Nursing and [employer] when medically cleared for discharge. Her son is out of town on business this week so she will need to take a Taxi home. Will follow up with her PCP. Possible discharge on Saturday.
--- NOTE | 2019-02-28 11:29 | PT.INTREAT ---
Date of service: 02/28/19 Time of Service: 11:00 PT Notes Inpatient Physical Therapy Treatment Note [facility] Date: 02/28/19 SUBJECTIVE: I am going home tomorrow. OBJECTIVE: [] BED MOBILITY/TRANSFERS Supine-sit: S Sit-supine: S Sit-stand: S Stand-sit: S GAIT Assistive Device: FWW Weight bearing:full Assist: SBA Distance: 300' ASSESSMENT: tolerated session well. She opted to forego using a SPC due to not feeling steady on her feet. She did have c/o visual deficits from her cataracts, and felt like FWW would be best for her at this time. PLAN: possible d/c home tomorrow. Will continue to work on her endurance and functional mobility following PT POC. TREATMENT CODE/TIME: 25 min. TAx2.
[2019-02-28 13:08] LABS: Troponin I < 0.05 ng/mL (0.00-0.06)
--- NOTE | 2019-02-28 15:29 | W.PM.PROGNOT ---
Date of Service Date of service: 02/28/19 Time of Service: 15:30 Assessment and Plan (1) DKA (diabetic ketoacidoses): Current visit: Yes Status: Acute Remains off insulin gtt and IVFs. DKA in Type 2 Diabetic very likely in setting of significant and prolonged hyperglycemia, with likely chronic dehydration. Significant Anion Gap as well as Ketonuria confirmed initially by labs. Current blood sugars are in the low 100's with change to 45 Units of Lantus BID. Will decrease to 40 Units twice daily, and continue with sliding scale coverage as needed. Also currently on mealtime insulin as well, which may need to be monitored. Care Management attempting to obtain a glucometer with voice alerts, and nursing is working closely with the patient in insulin education given her difficulties with eye sight. Plan will be for Home Health Visiting Nursing as well at time of discharge. Continue to monitor blood sugars, and adjust insulin further as needed. Continue ADA diet. (2) Status post fall: Current visit: Yes Status: Acute Mechanical fall at home, with Xrays negative for fracture. Patient is refusing imaging of her head. Current concern regarding questionable decision making skills vs. mild dementia - Mrs. Frye appears Oriented X3 this morning, and understanding of her situation. Will continue to monitor. (3) Abnormal EKG: Current visit: Yes Status: Acute Noted abnormality on telemetry by nursing, EKG obtained and with evidence of TWI anterolaterally that was not present on tracing in 2006. Extensive search unfortunately did not yield an EKG at time of admission, and review of ED notes fails to show any evidence of EKG being performed. Cardiac Biomarkers trended out and negative for acute ischemia. Patient is refusing any further cardiac work-up. Evidence of ECG abnormalities in elderly woman with uncontrolled diabetes - recommend ECHO and Nuclear Stress at minimum, refused by patient currently. Will attempt to arrange as outpatient. She is currently asymptomatic from a cardiac standpoint. (4) DVT prophylaxis: Current visit: Yes Status: Acute SC Enoxaparin. (5) Uncontrolled diabetes mellitus: Current visit: No Status: Acute Treatment as above. (6) Advance directive on file: Current visit: Yes Status: Acute Full Code. Subjective Interval history since last seen: 68-year-old woman with a prior history of Type 2 DM, admitted from [facility] Emergency Department on 02/25 with a diagnosis of DKA. 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 Cirrhosis. The patient has had worsening vision recently, not cleared for cataract extraction reportedly secondary to her poorly controlled diabetes. Her most recent HgA1C was 14% 01/2019. She underwent routine laboratory tests on the day prior to her admission, with labwork concerning for DKA with a Glucose of over 500, Elevated Anion Gap at 22, and significant Ketonuria. She was also acidotic by ABG. Reportedly the patient has not been taking any diabetic medications (although prescribed Dulaglutide) and does not check her blood sugars at home because she cannot see the dosage or the meter owing to her worsening eye sight. She was admitted to the ICU for further evaluation and treatment. This morning Mrs. Frye feels improved. Her anion gap remains closed, and her blood sugars have improved, although now in the low 100's. No other events reported. She remains afebrile. Exam Narrative Exam Narrative: General: Patient appears comfortable, AAOX3, NAD Neck: Supple CV: Regular, nontachycardic, S1S2, No rubs, murmurs, or gallops. Pulmonary: Clear to auscultation bilaterally, no crackles, wheezing, or rhonchi Abdomen: + Bowel Sounds, soft, nontender, nondistended Vascular: No lower extremity edema Neurologic: CN II-XII grossly intact. No focal deficits. Psych: Normal mood and affect. Objective Objective Clinical Data: Abnormal lab results 02/27/19 02/27/19 02/28/19 Range/Units 16:42 20:04 06:40 WBC (4.4-10.8) k/cumm RBC (4.00-5.20) m/cumm Hgb (12.0-15.5) g/dL Hct (36.0-46.0) % Plt Count (130-400) x1000/uL MPV (8.0-11.0) fL Absolute Lymphocytes (1.2-3.4) k/cumm Chloride 109 H 108 H 111 H (98-107) mmol/L Carbon Dioxide 20.3 L 18.8 L 19.0 L (21.0-32.0) mmol/L Anion Gap 11.2 H 12.0 H (3-11) mmol/L Glucose 231 H D 364 H D 141 H D (70-100) mg/dL 02/28/19 Range/Units 06:40 WBC 2.87 L (4.4-10.8) k/cumm RBC 3.79 L (4.00-5.20) m/cumm Hgb 11.7 L (12.0-15.5) g/dL Hct 35.1 L (36.0-46.0) % Plt Count 103 L (130-400) x1000/uL MPV 11.4 H (8.0-11.0) fL Absolute Lymphocytes 1.18 L (1.2-3.4) k/cumm Chloride (98-107) mmol/L Carbon Dioxide (21.0-32.0) mmol/L Anion Gap (3-11) mmol/L Glucose (70-100) mg/dL Vital Signs Temperature 36.9 C 02/28/19 14:30 Temperature Source Temporal Artery Scan 02/28/19 14:30 Pulse 69 02/28/19 14:30 Pulse Rhythm Regular 02/28/19 07:40 Pulse 72 02/28/19 07:41 Respiratory Rate 20 02/28/19 14:30 Respiratory Effort Non-Labored 02/28/19 07:40 Respiratory Depth Normal 02/28/19 07:40 Respiratory Pattern Normal 02/28/19 07:40 Blood Pressure 120/77 02/28/19 14:30 Blood Pressure Mean 80 02/28/19 07:41 Blood Pressure Position Supine 02/27/19 07:29 Pulse Oximetry 100 02/28/19 14:30 Oxygen Delivery Method Room Air 02/28/19 14:30 Oxygen Flow Rate 0 02/28/19 14:30 Pain Level 0 02/27/19 20:00 Intake & Output 02/27/19 02/28/19 02/28/19 23:59 11:59 23:59 Intake Total 1982.275 / 4732.184 2250 / 2500 250 / 2500 Output Total 1074 Balance 907.275 / 3007.184 250 / 500 250 / 500 Weight 70 kg Intake: IV 1022.275 / 3052.184 1999 Oral 960 / 1680 250 / 500 250 / 500 Output: Urine 1074 Other: Urine Color Yellow Yellow Urine Appearance Clear Clear Urine Odor None Normal Comment mixed with stool Stool Occult Blood Negative Negative Stool Size Large Moderate Stool Characteristics Soft Formed Formed Brown Voiding Methods Bedside Commode Toilet Laboratory Results WBC 2.87 k/cumm (4.4-10.8) L 02/28/19 06:40 RBC 3.79 m/cumm (4.00-5.20) L 02/28/19 06:40 Hgb 11.7 g/dL (12.0-15.5) L 02/28/19 06:40 Hct 35.1 % (36.0-46.0) L 02/28/19 06:40 MCV 92.6 fL (80-95) 02/28/19 06:40 MCH 30.9 pg (27.0-33.0) 02/28/19 06:40 MCHC 33.3 g/dL (32.0-36.0) 02/28/19 06:40 RDW 13.2 % (11.7-14.6) 02/28/19 06:40 Plt Count 103 x1000/uL (130-400) L 02/28/19 06:40 MPV 11.4 fL (8.0-11.0) H 02/28/19 06:40 Immature Gran % 0.0 02/28/19 06:40 44.0 02/28/19 06:40 41.1 02/28/19 06:40 11.5 02/28/19 06:40 2.4 02/28/19 06:40 1.0 02/28/19 06:40 Absolute Neutrophils 1.26 k/cumm (1.2-6.7) 02/28/19 06:40 Absolute Lymphocytes 1.18 k/cumm (1.2-3.4) L 02/28/19 06:40 Absolute Monocytes 0.33 k/cumm (0.11-0.7) 02/28/19 06:40 Absolute Eosinophils 0.07 k/cumm (0.0-0.7) 02/28/19 06:40 Absolute Basophils 0.03 k/cumm (0.0-0.2) 02/28/19 06:40 VBG pH 7.33 (7.32-7.43) 02/27/19 12:22 VBG pCO2 39 mm/Hg (34-47) 02/27/19 12:22 VBG pO2 32 mm/Hg (28-44) 02/27/19 12:22 VBG HCO3 21 mmol/L (22-28) L 02/27/19 12:22 VBG Total CO2 19 mmol/L (22-29) L 02/27/19 12:22 VBG O2 Saturation 61 % (70-80) L 02/27/19 12:22 VBG Base Excess -5.5 mmol/L (-3-3) L 02/27/19 12:22 Sodium 142 mmol/L (136-145) 02/28/19 06:40 Potassium 4.0 mmol/L (3.5-5.1) 02/28/19 06:40 Chloride 111 mmol/L (98-107) H 02/28/19 06:40 Carbon Dioxide 19.0 mmol/L (21.0-32.0) L 02/28/19 06:40 12.0 mmol/L (3-11) H 02/28/19 06:40 BUN 7 mg/dL (7-18) 02/28/19 06:40 0.58 mg/dL (0.55-1.02) 02/28/19 06:40 >= 60.00 (mL/min/1.73m2) 02/28/19 06:40 Glucose 141 mg/dL (70-100) H D 02/28/19 06:40 POC Glucose Cancelled 02/25/19 18:39 Calcium 8.7 mg/dL (8.5-10.1) 02/28/19 06:40 Phosphorus 1.7 mg/dL (2.6-4.7) L 02/26/19 06:20 Magnesium 1.9 mg/dL (1.8-2.4) 02/28/19 06:40 0.6 mg/dL (0.2-1.0) 02/25/19 16:45 AST 17 U/L (15-37) 02/25/19 16:45 ALT 22 U/L (12-78) 02/25/19 16:45 121 U/L (46-116) H 02/25/19 16:45 25 umol/L (11-32) 02/26/19 18:25 199 U/L (26-192) H 02/26/19 06:20 < 0.05 ng/mL (0.00-0.06) 02/28/19 06:40 7.4 g/dL (6.4-8.2) 02/25/19 16:45 3.5 g/dL (3.4-5.0) 02/25/19 16:45 Yellow (Yellow) 02/25/19 17:40 Clear (Clear) 02/25/19 17:40 5.5 (5-8) 02/25/19 17:40 Ur Specific [place] 1.010 (1.005-1.025) 02/25/19 17:40 Negative mg/dL (Negative) 02/25/19 17:40 >=160 mg/dL (Negative) H 02/25/19 17:40 Negative (Negative) 02/25/19 17:40 Negative (Negative) 02/25/19 17:40 Small (Negative) H 02/25/19 17:40 0.2 EU/dL (Up TO 0.2) 02/25/19 17:40 Ur Leukocyte Esterase Negative (Negative) 02/25/19 17:40 500 mg/dL (Negative) H 02/25/19 17:40
[2019-02-28] MEDS: Enoxaparin 40 MG/0.4 ML SYR SC (20:35)
[2019-02-28] MEDS: Insulin Glargine 300 UNITS/3 ML PEN 40 UNITS SC (21:55)
[2019-03-01] VITALS (7 sets, daily range): BP systolic 114–128; BP diastolic 74–76; PULSE 67–76; RESP 15–29; TEMP 36.6–36.8; O2SAT 97–99
[2019-03-01] MEDS: Normal Saline 1,000 ML 150 ML IV ×2 (00:19→06:38)
[2019-03-01 07:54] LABS: Absolute Basophil Count 0.04 k/cumm (0.0-0.2); Absolute Eosinophil Count 0.09 k/cumm (0.0-0.7); Absolute Lymphocyte Count 1.31 k/cumm (1.2-3.4); Absolute Monocyte Count 0.32 k/cumm (0.11-0.7); Absolute Neutrophil Count 1.26 k/cumm (1.2-6.7); Basophils % 1.3; HCT 33.6 % (36.0-46.0); HGB 11.1 g/dL (12.0-15.5); Lymphocytes % 43.4; Mean Corpuscular Hemoglobin 30.9 pg (27.0-33.0); Mean Corpuscular Volume 93.6 fL (80-95); Mean Platelet Volume 11.5 fL (8.0-11.0); Monocytes % 10.6; Neutrophils % 41.7; RBC 3.59 m/cumm (4.00-5.20); RBC Distribution Width 13.1 % (11.7-14.6); White Blood Cell Count 3.02 k/cumm (4.4-10.8)
[2019-03-01 08:06] LABS: Anion Gap 9.1 mmol/L (3-11); BUN 9 mg/dL (7-18); CO2 20.9 mmol/L (21.0-32.0); CREATININE 0.55 mg/dL (0.55-1.02); Calcium 8.5 mg/dL (8.5-10.1); Chloride 113 mmol/L (98-107); Glucose 91 mg/dL (70-100); Magnesium 1.6 mg/dL (1.8-2.4); Potassium 3.9 mmol/L (3.5-5.1); Sodium 143 mmol/L (136-145)
[2019-03-01] MEDS: Aspirin E.C. 81 MG TABEC PO (08:23)
[2019-03-01] MEDS: Docusate Sodium 100 MG CAP PO (08:23)
[2019-03-01 08:24] LABS: Diff Comment Agrees w/ Instrument; Platelet Count 104 x1000/uL (130-400); Polychromasia Present
[2019-03-01] MEDS: MAGNESIUM SULFATE 1 GM/100 ML BAG IVPB (11:16)
[2019-03-01] MEDS: Potassium Chloride 10 MEQ TABCR PO (11:16)
--- NOTE | 2019-03-01 11:18 | PT.INTREAT ---
Date of service: 03/01/19 Time of Service: 10:10 PT Notes Inpatient Physical Therapy Treatment Note [facility] Date: 03/01/19 SUBJECTIVE: I am just waiting for my d/c papers. I would love to go for a walk to take up some of my time. Pt was found sitting on EOB, brushing her hair, packing her personal belongings. OBJECTIVE: [] BED MOBILITY/TRANSFERS Sit-stand: S Stand-sit: S GAIT Assistive Device: FWW Weight bearing: full Assist: SBA Distance: approx 600' STAIRS:Pt refused to perform our clinic steps, stating she was not ready just yet. She understood that I needed to make sure she was safe but continued to refuse. ASSESSMENT: tolerated session well, despite refusing to perform steps. No LOB or SOB noted with ambulation today. Use of walker is more for loss of vision, vs balance or strength deficits. She did report feeling safer with using walker. Did not want to try using a cane. PLAN: D/c to home with services. TREATMENT CODE/TIME: 20 min. TAx1.
--- NOTE | 2019-03-01 12:28 | W.DIABETESNO ---
Date of service: 03/01/19 Time of Service: 12:29 Diabetes Note NOTE: Follow up with Christina Frye for insulin management at home. Although she has been instructed on injections for diabetes management at least twice in the past as an outpatient without successful medication administration. She has been practicing injecting with the nurses. She was left with 2 practice pens and an injection pillow and needles to practice dialing her dose. Today she feels confident she can inject at home. Reviewed how to distinguish between the two pens. Suggested she keep one pen where she eats, and the other beside her bed. Discussed glucometer choice and she believes a talking glucometer has been ordered for her. She believes home health will help her use her glucometer independently. Reviewed hypoglycemia symptoms and treatment and she will get sugar and juice to treat hypoglycemia.. She states her questions have been answered. She is only interested in going home. She has a f/u with her PCP in the near future. SUGGESTION: Given that Ms. Frye may have difficulty with the many new processes regarding diabetes management, suggest Lantus insulin be written to be administered once a day rather than twice a day to simplify the regimen for her. Given that she does not have or know how to use a glucometer, delay mealtime insulin until she can f/u with PCP and she is able to use a GLucometer. Suggest [employer] glucometer. She states she prefers to have her medications from mail order because she cannot get to the pharmacy easily. PLAN: Will call her tomorrow to see how she is transitioning to home. Time Spent in Nutritional Counseling and Treatment: 10 minutes face to face
[2019-03-01] MEDS: Insulin Aspart 300 UNITS/3 ML PEN SC (13:01)
--- NOTE | 2019-03-01 13:31 | W.PM.DS.N ---
Date of service: 03/01/19 Time of Service: 13:31 DS: Diagnosis Discharge Diagnosis (1) DKA (diabetic ketoacidoses): Status: Acute (2) Status post fall: Status: Acute (3) Abnormal EKG: Status: Acute (4) Uncontrolled diabetes mellitus: Status: Acute (5) Advance directive on file: Status: Acute Discharge Plan Disposition Patient Disposition: HOME W/HOME HEALTH SERVICE Condition: Stable Discharge Details Chief Complaint: Diabetes Clinical Impression: DKA (diabetic ketoacidoses) Reason For Visit: DKA Admit Date/Time: 02/25/19 19:03 Admit Provider: William Doll Attending Provider: William Doll Primary Care Provider: Renée Walker ED Provider: Linda Swain Hospital Course Hospital Course: Chief Complaint: Hyperglycemia HPI: 68-year-old woman with a prior history of Type 2 DM, admitted from [facility] Emergency Department on 02/25 with a diagnosis of DKA. 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 Cirrhosis. The patient has had worsening vision recently, not cleared for cataract extraction reportedly secondary to her poorly controlled diabetes. Her most recent HgA1C was 14% 01/2019. She underwent routine laboratory tests on the day prior to her admission, with labwork concerning for DKA with a Glucose of over 500, Elevated Anion Gap at 22, and significant Ketonuria. She was also acidotic by ABG. Reportedly the patient has not been taking any diabetic medications (although prescribed Dulaglutide) and does not check her blood sugars at home because she cannot see the dosage or the meter owing to her worsening eye sight. She was admitted to the ICU for further evaluation and treatment. This morning Mrs. Frye feels improved. Her anion gap remains closed, and her blood sugars have improved, although now in the low 100's. No other events reported. She remains afebrile. Hospital Course: (1) DKA (diabetic ketoacidoses): Has remained off insulin gtt and IVFs. DKA in Type 2 Diabetic very likely in setting of significant and prolonged hyperglycemia, with likely chronic dehydration. Significant Anion Gap as well as Ketonuria confirmed initially by labs. Mrs. Frye was initiated on fairly aggressive BID dosing of Lantus, Sliding Scale, and mealtime carb counting coverage post DKA. Her blood sugars were in the low 100's and even at 90, and she is still at risk for multiple insulin administrations at home due to her eye sight. Per recommendations from Nutrition and following discussion with nursing staff, Care Management, and the patient herself decision is to discharge on once daily Lantus at 40 Units in the morning, with careful monitoring of blood sugars at home. No meal time coverage is prescribed given her risks that include poor vision and potential for injection error, and given her difficulty with sight a Voice Glucometer was prescribed at time of discharge with plans for follow-up phone conversation with Nutrition as well as Home Health Nursing tomorrow. Nursing has also spend a good deal of time in education on insulin administration. Will also advise rapid follow-up with PCP within 2-3 days for further titration of insulin. Suspect that Mrs. Frye may have elevated glucose following discharge, but should remain out of DKA as she is now on long-acting insulin. (2) Status post fall: Mechanical fall at home, with Xrays negative for fracture. Patient is refusing imaging of her head. Current concern regarding questionable decision making skills vs. mild dementia - Mrs. Frye appears Oriented X3 again this morning, and again understanding of her situation. (3) Abnormal EKG: Noted abnormality on telemetry by nursing, EKG obtained and with evidence of TWI anterolaterally that was not present on tracing in 2007. Extensive search unfortunately did not yield an EKG at time of admission, and review of ED notes fails to show any evidence of EKG being performed at time of admission. Cardiac Biomarkers trended out and negative for acute ischemia. Patient is refusing any further cardiac work-up. Evidence of ECG abnormalities in elderly woman with uncontrolled diabetes - recommend ECHO and Nuclear Stress at minimum, refused by patient currently. Should still attempt to arrange as outpatient. She is currently asymptomatic from a cardiac standpoint. (4) DVT prophylaxis: Was maintained on SC Enoxaparin. (5) Uncontrolled diabetes mellitus: Treatment as above. (6) Advance directive on file: Full Code. Home Meds and New Rx's Prescriptions: New aspirin 81 mg Tablet,Delayed Release (Dr/Ec) 81 mg PO DAILY Qty: 1 RF: 0 insulin glargine 100 unit/mL (3 mL) insulin pen 40 unit SC DAILY Qty: 15 RF: 0 Continued bath commode 1 u Miscellaneous DAILY Qty: 1 RF: 0 (DME) OneTouch Verio 1 EACH strip 1 ea Miscellaneous QID Qty: 100 RF: 11 (DME) lancets [OneTouch UltraSoft Lancets] 1 EACH misc 1 ea Miscellaneous DAILY Qty: 100 RF: 11 himalyian sea salts 1 cap PO DAILY RF: 0 Discontinued Trulicity 0.75 mg/0.5 mL pen injector 0.75 mg SC QWEEK Qty: 2 RF: 5 Hold Instructions: None Discharge Instructions Activity:: No Strenuous Activity Equipment/Supplies:: Glucometer, Test Strips and Lancets prescribed. Diet:: Carb Counting Discharge Orders Discharge Orders: Discharge Order (Routine); Ordered 03/01/19 Ordered By: Keith Gallego Exam Narrative Exam Narrative: General: Patient appears comfortable, AAOX3, NAD Neck: Supple CV: Regular, nontachycardic, S1S2, No rubs, murmurs, or gallops. Pulmonary: Clear to auscultation bilaterally, no crackles, wheezing, or rhonchi Abdomen: + Bowel Sounds, soft, nontender, nondistended Vascular: No lower extremity edema Neurologic: CN II-XII grossly intact. No focal deficits. Psych: Normal mood and affect. DS: Data Vitals/I&O Vitals and I&O: Vital Signs Temperature 35.9 C L 02/28/19 23:00 Temperature Source Tympanic 02/28/19 23:00 Pulse 70 02/28/19 23:59 Pulse Rhythm Regular 03/01/19 09:32 Pulse 68 03/01/19 04:00 Respiratory Rate 18 03/01/19 04:00 Respiratory Effort 03/01/19 09:32 Respiratory Depth Normal 03/01/19 09:32 Respiratory Pattern Normal 03/01/19 09:32 Blood Pressure 119/77 02/28/19 23:00 Blood Pressure Mean 87 02/28/19 22:49 Blood Pressure Position Supine 02/27/19 07:29 Pulse Oximetry 96 02/28/19 23:00 Oxygen Delivery Method Room Air 02/28/19 23:00 Oxygen Flow Rate 0 02/28/19 23:00 Pain Level 0 02/28/19 23:00 Intake & Output 07/03/01/19 03/01/19 23:59 11:59 23:59 Intake Total 1375 / 3625 1940.0 / 1940.0 Output Total 2750 / 4925 1340 / 1340 Balance -1375 / -1300 600.0 / 600.0 Intake: IV 1000 / 3000 1940.0 / 1940.0 Oral 375 / 625 Output: Urine 2750 / 4925 1340 / 1340 Other: Urine Color Pale Yellow Yellow Urine Appearance Clear Clear Urine Odor None Strong Stool Occult Blood Negative Stool Size Large Stool Characteristics Formed Brown Voiding Methods Bedside Commode Bedside Commode Completed studies during hospitalization [Text1]: Exam(s) a RAD:XR ankle LT complete a RAD:XR femur LT a RAD:XR foot LT complete SYMPTOM/DIAGNOSIS: PAIN, S/P FALL LEFT FOOT: There is no evidence of a fracture or dislocation. LEFT FEMUR: There is no evidence of a left hip or femoral fracture. LEFT ANKLE: There is no evidence of a fracture or dislocation. ------- Exam(s) a US:US echocardiogram Date of study: 02/27/2019 Transthoracic Echocardiography M-mode, complete 2D, complete spectral Doppler, and color Doppler *STUDY CONCLUSIONS* Summary: 1. Left ventricle: The cavity size was normal. Wall thickness was normal. Systolic function was normal. The estimated ejection fraction was 55-60%. Wall motion was normal; there were no regional wall motion abnormalities. 2. Aortic valve: Transvalvular velocity was minimally increased. There was very mild stenosis. 3. Right ventricle: The cavity size was normal. Wall thickness was normal. Systolic function was normal. RV systolic pressure (S, est): 32mm Hg. 4. Pulmonary arteries: Pulmonary systolic pressure was at the upper limits of normal. Labs on day of discharge: Labs from last 24 hours 03/01/19 03/01/19 07:00 07:00 WBC 3.02 L RBC 3.59 L Hgb 11.1 L Hct 33.6 L MCV 93.6 MCH 30.9 MCHC 33.0 RDW 13.1 Plt Count 104 L MPV 11.5 H Immature Gran % 0.0 Neutrophils % 41.7 Lymphocytes % 43.4 Monocytes % 10.6 Eosinophils % 3.0 Basophils % 1.3 Absolute Neutrophils 1.26 Absolute Lymphocytes 1.31 Absolute Monocytes 0.32 Absolute Eosinophils 0.09 Absolute Basophils 0.04 Differential Comment Agrees w/ instrument RBC Morphology See below Polychromasia Present Sodium 143 Potassium 3.9 Chloride 113 H Carbon Dioxide 20.9 L Anion Gap 9.1 BUN 9 Creatinine 0.55 Estimated GFR/1.73 m2 >= 60.00 Glucose 91 D Calcium 8.5 Magnesium 1.6 L PFSH Medical History Ascites of liver (Inactive 11/15/14) Diabetes mellitus (Inactive 03/26/17) Essential hypertension (Inactive 01/16/12) Uncontrolled type 2 diabetes mellitus without complication, without long-term current use of insulin (Inactive 01/14/18) Surgical History Cervical Procedure S/P appendectomy (Acute) S/P tonsillectomy (Acute) Family History Grandmother Stroke Mother No problems noted. 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
--- NOTE | 2019-03-01 13:51 | HHF2F_ITS ---
1. Encounter Date and Reason I certify that YANETH GUY was seen by Keith Gallego on 03/01/19 and that I had a [id number] encounter with this patient that meets the physician face to face encounter requirements. 2. Clinical Findings Supporting Skilled Need and Homebound Status I certify that home health services are medically necessary, include either intermittent nursing home and/or physical/speech therapy, and that this patient is homebound in that absences from the home require considerable and taxing effort and are infrequent or of short duration, or are attributable to the need to receive medical care. [X] (a) Attached documentation from encounter provides clinical findings supporting skilled need and homebound status (including what assistance patient requires to leave the home). The encounter with the patient was in whole, or in part, for the following medical condition, which is the primary reason for home health care: DKA Penitentiary: Needs close monitoring of blood sugar, potential follow-up on insulin administration and blood sugar checks.. Patient with poor eyesight requiring extensive education on insulin administration and voice glucometer. Physical Therapy/Occupational Therapy: Deconditioning Grounds Person: Per Request Homebound: 3. Certification and Authentication I certify that I composed the above information based on my clinical judgement relating to this patient's medical condition and, if applicable, clinical findings communicated to me by the NPP or inpatient physician who performed the Home Health Referral. All further orders will be obtained through (Community Based Physician - PCP)
--- NOTE | 2019-03-01 14:42 | PDOC.CMDIS ---
LACE Index Scoring Tool - Questions: Length of Stay (in days): 4 - 6 Acuity (Admit via E.D.?): Yes Comorbidities: Diabetes w/o Complication, Liver or Renal Disease E.D. Visits: 2 - Answers: Total Score: 14 Risk of Readmission: High Risk Care Management Discharge Reason for Hospitalization: DKA Discharge Plan: Christina will return home with new services for Nursing, OT, PT and NEONATAL NURSE PRACTITIONER. She has been started on insulin and has a prescription to fill for a InhibOx Voice glucometer. She has learned how to self administer her insulin. RCT transport home. Patient/Family Education Needs: Diabetes self-management, effects of alcohol consumption on her glucose levels, importance of removing clutter and tripping hazards from the home, discharge instructions.
--- NOTE | 2019-03-01 18:24 | NUR.NOTE ---
Discharged to home via RCT at 1700. Instructions and prescriptions in hand. Glargine insulin pen provided.Nursing Note:
== END 2019-03-01 17:00 | disposition home health service (06) | DRG 639 ==
LOC: ER 19:17 → ICU 21:17
PROVIDERS: Internal Medicine; Admitting Provider Internal Medicine; Emergency Provider Physician Assistant; PCP Internal Medicine; Visit Provider Internal Medicine
DX: E11.10 Type 2 diabetes mellitus with ketoacidosis without coma (principal); M79.652 Pain in left thigh; M25.572 Pain in left ankle and joints of left foot; M79.672 Pain in left foot; W19.XXXA Unspecified fall, initial encounter; R94.31 Abnormal electrocardiogram [ECG] [EKG]; E11.65 Type 2 diabetes mellitus with hyperglycemia; E11.42 Type 2 diabetes mellitus with diabetic polyneuropathy; T38.3X6A Underdosing of insulin and oral hypoglycemic [antidiabetic] drugs, initial encounter; E78.5 Hyperlipidemia, unspecified; H25.13 Age-related nuclear cataract, bilateral; Z91.19 Patient's noncompliance with other medical treatment and regimen; E86.0 Dehydration; E87.6 Hypokalemia; E83.42 Hypomagnesemia; R63.4 Abnormal weight loss; Z68.25 Body mass index [BMI] 25.0-25.9, adult; E11.621 Type 2 diabetes mellitus with foot ulcer; L97.521 Non-pressure chronic ulcer of other part of left foot limited to breakdown of skin; Z79.84 Long term (current) use of oral hypoglycemic drugs; K76.0 Fatty (change of) liver, not elsewhere classified; Z71.3 Dietary counseling and surveillance
CPT/HCPCS: 36415; 36416; 73552; 80048; 80053; 82550; 82805; 82962; 93306; 96360; 96361; 96365; 96366; 97162; 97530; 99223; 99232; 99233; 99239; 99285; J1650; NC; 73610; 73630; 81003; 82140; 83735; 84100; 84484; 85025; 99284; J3475; J3480

== ENCOUNTER 2019-05-01 07:05 | Outpatient (CLI) | payer MEDICARE, OTHER, SELFPAY ==
[2019-05-04 10:58] LABS: C-Peptide 0.9 ng/mL (1.1 - 4.4)
== END 2019-05-01 07:25 ==
PROVIDERS: PCP Internal Medicine; Visit Provider Internal Medicine
DX: E11.65 Type 2 diabetes mellitus with hyperglycemia (principal)
CPT/HCPCS: 36415; 86341; 84681; 86337

== ENCOUNTER → 2019-05-15 12:57 | Outpatient (BNVA) | payer MEDICARE, OTHER, SELFPAY | PROVIDERS: PCP Internal Medicine; Referring Provider Internal Medicine; Visit Provider Surgery | DX: L72.3 Sebaceous cyst (principal); L08.9 Local infection of the skin and subcutaneous tissue, unspecified; I10 Essential (primary) hypertension; E11.9 Type 2 diabetes mellitus without complications; Z79.4 Long term (current) use of insulin | CPT/HCPCS: 11402; 99202 ==

== ENCOUNTER 2019-05-15 15:30 | Outpatient (REF) | payer MEDICARE, OTHER, SELFPAY ==
--- NOTE | 2019-05-15 13:45 | SKI_PTH ---
PATIENT: Christina Frye LOC: [facility] U#:[id number] AGE/SX: 68/F ROOM: RE05/15/[address]: Darlene Dean : 1950 BED: DIS: 05/15/2019 SPEC #: [id number] RECD: 05/18/19 12:35 STATUS: LUZMARIA REQ #: [id number] HERIBERTO: 05/15/19 13:[address]: Darlene Dean DEPT: Surgical Specimen RECD BY: Rosa Elena Ho ENTERED: 05/18/19 12:36 SP TYPE: TERESA BLUM DR: Renée Walker MD Tissues: 1 - SKIN CYST/TAG/DEBRIDEMENT Procedures: SKIN BIOPSY LEVEL 3 Comments: [id number]
== END 2019-05-15 15:50 ==
LOC: LBN 15:30
PROVIDERS: PCP Internal Medicine; Visit Provider Surgery
DX: L72.8 Other follicular cysts of the skin and subcutaneous tissue (principal)
CPT/HCPCS: 88304

== ENCOUNTER → 2019-05-27 09:56 | Outpatient (BNVA) | payer MEDICARE, OTHER, SELFPAY | PROVIDERS: PCP Internal Medicine; Referring Provider Internal Medicine; Visit Provider Surgery | DX: Z48.817 Encounter for surgical aftercare following surgery on the skin and subcutaneous tissue (principal); L72.3 Sebaceous cyst; L08.9 Local infection of the skin and subcutaneous tissue, unspecified; E11.9 Type 2 diabetes mellitus without complications; I10 Essential (primary) hypertension; Z79.4 Long term (current) use of insulin ==

== ENCOUNTER 2020-05-24 01:01 | Outpatient (CLI) | payer MEDICARE, OTHER, SELFPAY ==
--- NOTE | 2020-05-24 07:30 | DI.MAMMO_ITS ---
EXAM: MAMMO SCREENING CLINICAL HISTORY: screening,Z12.39 TECHNIQUE: Mammograms were interpreted according to the usual protocol including computer analysis w [employer] CAD system, tomosynthesis and C-view imaging. COMPARISON: 2014 and 2016 FINDINGS: The breasts are composed of mainly fatty density , Breast Density category A. No suspicious masses or suspicious microcalcifications are seen. No skin thickening or abnormal axillary lymph nodes are seen. There has been no significant change from prior exams. IMPRESSION: BI-RADS Category 1, Negative mammogram Yearly screening mammography is recommended. Breast Density - Category A, fatty density. A negative radiographic report should not delay biopsy if a dominant or clinically suspicious mass is present. Up to ten percent of cancers are not identified on mammography. A negative report may reinforce clinical impression. Adenosis and dense breasts may obscure an underlying neoplasm. False positive reports average 6 to 10%. Patient will receive a letter notifying them of these results.
== END 2020-05-24 01:21 ==
PROVIDERS: PCP Internal Medicine; Visit Provider Internal Medicine
DX: Z12.31 Encounter for screening mammogram for malignant neoplasm of breast (principal)
CPT/HCPCS: 77063; 77067

== ENCOUNTER 2021-03-21 16:16 | Outpatient (REF) | payer MEDICARE, OTHER, SELFPAY ==
[2021-03-21 18:47] LABS: HCT 39.6 % (36.0-46.0); HGB 13.1 g/dL (11.2-15.7); MCH 31.7 pg (27.0-33.0); MCHC 33.1 % (32.0-36.0); MCV 95.9 fL (80-95); MPV 10.5 fL (8.0-11.0); Platelet Count 218 10^3/uL (130-400); RBC 4.13 10^6/uL (3.93-5.22); RDW-SD 48.3 fL; WBC 7.84 10^3/uL (4.4-10.8)
[2021-03-21 19:29] LABS: ALT 23 U/L (14-59); AST 34 U/L (15-37); Albumin 3.7 g/dL (3.4-5.0); Alkaline Phosphatase 174 U/L (46-116); Anion Gap 13.4 mmol/L (3-11); BUN 11 mg/dL (7-18); Bilirubin, Total 0.6 mg/dL (0.2-1.0); CO2 27.6 mmol/L (21.0-32.0); CREATININE 1.1 mg/dL (0.55-1.02); Calcium 8.1 mg/dL (8.5-10.1); Chloride 102 mmol/L (98-107); Estimated GFR 48.82 (mL/min/1.73m2); Glucose 184 mg/dL (74-106); Sodium 143 mmol/L (136-145); TSH 1.09 uIU/mL (0.36-3.74); Total Protein 7.3 g/dL (6.4-8.2); Vitamin B12 436 pg/mL (193-986)
[2021-03-21 20:32] LABS: Potassium 2.8 mmol/L (3.5-5.1)
== END 2021-03-21 16:17 | disposition home or self-care (01) ==
LOC: LBN 16:16
PROVIDERS: PCP Internal Medicine; Visit Provider Internal Medicine
DX: F41.1 Generalized anxiety disorder (principal); E78.00 Pure hypercholesterolemia, unspecified; E11.65 Type 2 diabetes mellitus with hyperglycemia; K76.0 Fatty (change of) liver, not elsewhere classified; G62.9 Polyneuropathy, unspecified
CPT/HCPCS: 80053; 85027; 82607; 84443

== ENCOUNTER 2021-06-22 19:41 | Inpatient (IN) | payer MEDICARE, OTHER, SELFPAY ==
[2021-06-22] VITALS (30 sets, daily range): BP systolic 111–159; BP diastolic 69–105; PULSE 71–87; RESP 14–42; TEMP 36.6; O2SAT 94–100
--- NOTE | 2021-06-22 19:30 | RT.EKG_ITS ---
APPROVED REPORT Exam: Resting ECG Reason for Exam: short of breath Patient Location: E HR:95 bpm ECG Measurements Heart Rate 95 AXIS SD 115 P -35 QRSd 104 QRS -25 QT 431 T -31 QTc 524 Conclusion Sinus rhythm...normal P axis, V-rate 60- 99 Ventricular premature complex...V complex w/ short R-R interval Prolonged QT interval...QTc >500mS Artifact. Normal [place] Nonspecific T wave changes/flattening No STEMI
--- NOTE | 2021-06-22 19:45 | DI.CT_ITS ---
Exam(s) CT HEAD CERVICAL SPINE WO EXAM: CT HEAD CERVICAL SPINE WO COMPARISON: CT CT CHEST/ABD/PEL WO from 06/22/[address] CHEST/ABD/PEL WO from 06/22/2021 FINDINGS: CT examination of the cervical spine was performed without contrast administration. There are marked degenerative changes of the cervical spine. There is no evidence of acute cervical spine fracture or dislocation. Intervertebral disc spaces are well maintained. Tracheolaryngeal structures appear intact. No cervical mass or adenopathy. Noncontrast cranial CT was performed. There is moderate generalized cerebral atrophy.. No evidence of acute intracranial hemorrhage, mass effect, or midline shift. No calvarial fracture. The orbital and temporal bone structures appear intact. Visualized mastoid air cells and paranasal sinuses appear clear. IMPRESSION: No evidence of acute cervical spine injury. No evidence of acute intracranial injury. RADIATION DOSE DELIVERED: Total DLP Total DLP CTDIvol DATA REPOSITORY: All CT scans at this facility are submitted to the National Radiology Data Registry (NRDR) Dose Index Registry (DIR) with the [employer] (ACR). RADIATION OPTIMIZATION: All CT scans at this facility use at least one of these dose optimization te chniques: automated exposure control; mA and/or kV adjustment per patient size (includes targeted exa ms where dose is matched to clinical indication); or iterative reconstruction.
[2021-06-22] MEDS: Dextrose 50%-Water 25 GM/50 ML SYR (19:50)
--- NOTE | 2021-06-22 20:00 | DI.CT_ITS ---
Exam(s) CT CHEST/ABD/PEL WO EXAM: CT CHEST/ABD/PEL WO CLINICAL HISTORY: ams TECHNIQUE: CT examination of the chest, abdomen, and pelvis was performed without intravenous contra st administration. COMPARISON: No exams were available for comparison FINDINGS: There is significant respiratory motion which limits imaging. There are small bilateral pleural effusions and there are areas of apparent atelectasis in both lungs . Pulmonary emphysema is noted. There is cardiomegaly and there are coronary artery calcifications. Thoracic aorta is ectatic in its descending portion at 42 millimeters. There is no mediastinal or hilar adenopathy. No gross mediastinal adenopathy or fluid collection. No bony abnormality seen in the thorax. The liver shows decreased attenuation consistent with hepatic steatosis. There is a nodular hepatic contour highly suggestive of cirrhosis. Gallbladder and bile ducts are CT normal. No abnormality seen involving the spleen. There is pancreatic atrophy and calcification consistent with chronic pancreatitis. The adrenals are unremarkable in appearance. There is nonobstructing calcification of the right kidn ey. No evidence of left nephrolithiasis. No ureterolithiasis. No hydronephrosis. There is a Escobedo catheter in the urinary bladder which is empty. Abdominal aorta and major visceral branches appear intact. No significant abdominal wall hernia seen. The anterior abdominal wall is patulous. No significant abdominal or pelvic adenopathy. No focal bowel pathology. No evidence of appendicitis or diverticulitis. IMPRESSION: Small bilateral pleural effusions and cardiomegaly noted, no makenzie pulmonary edema. Hepatic steatosis and presumed cirrhosis. No evidence of additional acute process. RADIATION DOSE DELIVERED: Total DLP Total DLP CTDIvol
--- NOTE | 2021-06-22 20:15 | ED.GENADUL_ITS ---
Discharge Plan Disposition Patient Disposition: [facility] INPATIENT Condition: Serious Discharge Details Clinical Impression: Hypoglycemia, Hypokalemia, AMS (altered mental status) Primary Care Provider: Renée Walker ED Provider: William Blevins Home Meds and New Rx's Prescriptions: No Action acetaminophen [Acetaminophen Extra Strength] 500 mg tablet 500 mg PO Q6H PRNRF: 0 furosemide 20 mg tablet 20 mg PO DAILY PRN (Reason: edema) Qty: 30 RF: 1 Hold Instructions: Home Medication placed on hold at Doctor's office Lantus Solostar U-100 Insulin 100 unit/mL (3 mL) insulin pen 35 unit SC DAILY Qty: 45 RF: 3 (DME) blood sugar diagnostic Strip See Rx Instructions .ROUTE .MEDSUPPLY Qty: 180 RF: 3 (DME) lancets [OneTouch Delica Lancets] 30 gauge misc See Rx Instructions .ROUTE .MEDSUPPLY Qty: 100 RF: 3 (DME) OneTouch Verio test strips Strip 1 ea Miscellaneous QID Qty: 180 RF: 3 potassium chloride 10 mEq capsule, extended release 10 meq PO DAILY Qty: 30 RF: 0 (DME) pen needle, diabetic [Lite Touch Insulin Pen Jefferson] 31 gauge x 1/4 needle See Rx Instructions .ROUTE .MEDSUPPLY Qty: 30 RF: 11 Medical Decision Making <JOHN Fry - Last Filed: 06/23/21 00:07> 70-year-old female with past medical history of alcohol abuse, diabetes, pre sents altered, unknown downtime. Glucose on scene was 25, and glucose given and brought up into the 120s although she remained altered and combative, then given 5 of Versed for transport. Here in the ER patient is fairly responsive to sternal rub. No overt signs of trauma. On scene sats were told to be 79% on room air. Patient placed on a nonrebreather 15 L. Fingerstick here in the ER is now back down to 75. Patient given additional amp of glucose here in the ER. Patient was seen immediately upon arrival in room 1 and after exiting room 1 I immediately discussed the case with Dr. Jimenez who personally evaluate the patient. Patient is protecting her airway, does have a gag reflex, nasal trumpet placed as she is very sonorous in nature. Does not appear to need emergent intubation but respiratory has been called to come to the ER. Will obtain a altered mental status, septic, cardiac work-up and given her unknown downtime will obtain CPK, tox screen, and CT imaging of head, C-spine, chest, abdomen, pelvis. Will obtain to sites of IV access, initiate normal saline wide open in one side and the other side will initiate D5 infusion at 150 an hour. Patient continues to have altered mental status, is unable to follow commands or cooperate, placed into nonviolent restraints. Patient is unable to follow commands or cooperate to have CT obtained, will give an additional 5 IV Versed. Laboratory values reveal a white blood cell count of 14.42 hemoglobin 14.0 hematocrit 42.5 platelet count 202. INR 1.3 ABG pH 7.54 lactate 4.2 potassium 2.4 carbon dioxide 36.9 calcium 7.9 magnesium 1.4, CPK 416, troponin less than 0.05. Lipase 21 procalcitonin less than 0.1 TSH 1.11, urinalysis was a cath specimen, small blood, positive nitrate, only at 5-10 white cells with 3-5 red cells, few epithelial cells. Trace leukoesterase. Tox screen positive for benzos otherwise unremarkable, alcohol less than 3, Covid negative. Patient was nonspecific leukocytosis, afebrile, no evidence of tachycardia, hypotension, obvious signs of infection. Difficult to blame her presentation on urosepsis. I do not see a clear indication for initiating broad-spectrum antibiotics. Potassium 2.4, given 20 IV, magnesium 1.4, given 1 g IV. Patient continues to receive her 150 cc an hour of her dextrose, now receiving a second liter of fluid, lactated Ringer's. Patient returned from CT, glucose in the 120s. CT imaging of head, C-spine, chest abdomen, pelvis, unremarkable for obvious emergent process. Repeat glucose now reveals a level of 57. Patient given another amp of glucose. Upon recheck glucose is now 119. Patient is now awake, tracking, speaking a few words although not always making sense. She does appear to be more awake and alert than upon her initial presentation. She has no facial asymmetry, moves all extremities without difficulty. Given her continued altered mental status although improving, continued hypoglycemia, will discuss the case with our hospitalist team, Dr. Milan to discuss admission. Patient to be admitted to the ICU, I will place holding orders. Medical Records Medical records reviewed: Yes I reviewed the patient's medical records. Imaging Data Radiologic Study: Attestation: I personally reviewed and interpreted this imaging study as follows: Imaging: CT Scan Radiologist's impression: PROCEDURE INFORMATION: Exam: CT Head Without Contrast Exam date and time: 06/22/2021 7:57 PM Age: 70 years old Clinical indication: Other: AMS TECHNIQUE: Imaging protocol: Computed tomography of the head without contrast. COMPARISON: No relevant prior studies available. FINDINGS: Brain: Normal. No hemorrhage. Unremarkable white matter. No mass effect. Cerebral ventricles: No ventriculomegaly. Paranasal sinuses: Visualized sinuses are unremarkable. No fluid levels. Mastoid air cells: Visualized mastoid air cells are well aerated. Bones/joints: Unremarkable. No acute fracture. Soft tissues: Unremarkable. IMPRESSION: No acute intracranial abnormality. 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 If there is a discrepancy between the preliminary and final interpretation, please notify [email or web address] via [email or web address]. If you do not have access to our QA portal, call our QA team at [phone] CONFIDENTIALITY STATEMENT This report is intended only for the use of the referring physician, and only in accordance with law, If you received this in error, call [phone] Page 2 of 2 Imaging protocol: Computed tomography images of the cervical spine without contrast. COMPARISON: No relevant prior studies available. FINDINGS: Vertebrae: No acute fracture. Normal alignment. Multilevel degenerative disk disease and facet arthropathy with neuroforaminal and canal stenosis.. Soft tissues: Unremarkable. Lungs: Lung apices are normal. IMPRESSION: No acute findings. Radiologic Study #2: Attestation: I personally reviewed and interpreted this imaging study as follows: Imaging: CT Scan Radiologist's impression: PROCEDURE INFORMATION: Exam: CT Chest Without Contrast; Diagnostic Exam date and time: 06/22/2021 8:03 PM Age: 70 years old Clinical indication: Other: AMS TECHNIQUE: Imaging protocol: Diagnostic computed tomography of the chest without contrast. 3D rendering (Not supervised by radiologist): MIP and/or 3D reconstructed images were created by the technologist. COMPARISON: CR ABD FLAT UPRIGHT PA CHEST 08/30/2014 11:43 AM FINDINGS: Lungs: Unremarkable. No consolidation. No masses. Pleural spaces: Unremarkable. No pneumothorax. No pleural effusion. Heart: Unremarkable. No cardiomegaly. No pericardial effusion. Aorta: Unremarkable. No aortic aneurysm. Lymph nodes: Unremarkable. No enlarged lymph nodes. Bones/joints: Unremarkable. No acute fracture. Soft tissues: Unremarkable. IMPRESSION: No acute findings. PROCEDURE INFORMATION: Exam: CT Abdomen And Pelvis Without Contrast Exam date and time: 06/22/2021 8:03 PM YANETH GUY Preliminary Radiology Report HORSE RACETRACK MANAGER (QA) DISCREPANCY? If there is a discrepancy between the preliminary and final interpretation, please notify [email or web address] via [email or web address]. If you do not have access to our QA portal, call our QA team at [phone] CONFIDENTIALITY STATEMENT This report is intended only for the use of the referring physician, and only in accordance with law, If you received this in error, call [phone] Page 2 of 2 Age: 70 years old Clinical indication: Other: AMS TECHNIQUE: Imaging protocol: Computed tomography of the abdomen and pelvis without contrast. 3D rendering (Not supervised by radiologist): MIP and/or 3D reconstructed images were created by the technologist. COMPARISON: CR ABD FLAT UPRIGHT PA CHEST 08/30/2014 11:43 AM FINDINGS: Liver: Hepatic steatosis and possible early cirrhosis. Gallbladder and bile ducts: Normal. No calcified stones. No ductal dilation. Pancreas: Normal. No ductal dilation. Spleen: Normal. No splenomegaly. Adrenal glands: Normal. No mass. Kidneys and ureters: Nonobstructing renal calculi. Stomach and bowel: Colonic diverticula. Appendix: No evidence of appendicitis. Intraperitoneal space: Unremarkable. No free air. No significant fluid collection. Vasculature: Unremarkable. No abdominal aortic aneurysm. Lymph nodes: Unremarkable. No enlarged lymph nodes. Urinary bladder: No obstructing urinary calculus or hydronephrosis. Escobedo catheter in collapsed urinary bladder. Reproductive: Unremarkable as visualized. Bones/joints: Unremarkable. No acute fracture. Soft tissues: Unremarkable. IMPRESSION: No acute finding. Lab Data Lab results reviewed: Yes I reviewed the patient's lab results. Labs: 06/22/21 23:10 Blood Blood Culture - Pending 06/22/21 20:32 Urine - Reflex from Ua Urine Culture - Pending 06/22/21 20:17 Blood Blood Culture - Pending Laboratory Tests Range/Units 06/22/21 06/22/21 06/22/21 19:50 19:50 19:50 WBC (4.4-10.8) 10^3/uL 14.42 H RBC (3.93-5.22) 10^6/uL 4.04 Hgb (11.2-15.7) g/dL 14.0 Hct (36.0-46.0) % 42.5 MCV (80-95) fL 105.2 H MCH (27.0-33.0) pg 34.7 H MCHC (32.0-36.0) % 32.9 RDW (11.7-14.6) % 15.1 H Plt Count (130-400) 10^3/uL 202 MPV (8.0-11.0) fL 10.6 Immature Gran % 0.3 Neutrophils % 89.3 Lymphocytes % 3.1 Monocytes % 7.1 Eosinophils % 0.0 Basophils % 0.2 Nucleated RBC % % 0 Absolute Neutrophils (1.2-6.7) 10^3/uL 12.88 H Absolute Lymphocytes (1.2-3.4) 10^3/uL 0.45 L Absolute Monocytes (0.1-0.8) 10^3/uL 1.02 H Absolute Eosinophils (0.0-0.7) 10^3/uL 0.00 Absolute Basophils (0.0-0.2) 10^3/uL 0.03 RBC Morphology See Below Macrocytosis 3+ PT (9.3-11.0) sec INR (0.9-1.1) APTT (21.0-27.5) sec ABG Sample Site ABG pH (7.35-7.45) ABG pCO2 (35-45) mmHg ABG pO2 (80-105) mmHg ABG HCO3 (22-26) mmol/L ABG Total CO2 ABG O2 Saturation ABG Base Excess (-2-3) mmol/L VBG Lactate (0.6-1.4) mmol/L Oxygen Liter Flow L Sodium (136-145) mmol/L 145 Potassium (3.5-5.1) mmol/L 2.4 L* Chloride (98-107) mmol/L 102 Carbon Dioxide (21.0-32.0) mmol/L 36.9 H Anion Gap (3-11) mmol/L 6.1 BUN (7-18) mg/dL 8 Creatinine (0.55-1.02) mg/dL 1.0 Estimated GFR/1.73 m2 (mL/min/1.73m2) 54.50 Glucose (74-106) mg/dL 88 Calcium (8.5-10.1) mg/dL 7.9 L Magnesium (1.8-2.4) mg/dL 1.4 L Total Bilirubin (0.2-1.0) mg/dL 0.7 AST (15-37) U/L 86 H ALT (14-59) U/L 37 Alkaline Phosphatase (46-116) U/L 185 H Ammonia (11-32) umol/L Creatine Kinase (26-192) U/L 416 H Troponin I (<0.06) ng/mL < 0.05 Total Protein (6.4-8.2) g/dL 7.3 Albumin (3.4-5.0) g/dL 3.1 L Lipase (73-393) U/L 21 Procalcitonin ng/mL TSH (0.36-3.74) uIU/mL 1.11 Urine Color (Yellow) Urine Clarity (Clear) Urine pH (5-8) Ur Specific Constantia (1.005-1.025) Urine Protein (Negative) mg/dL Urine Ketones (Negative) mg/dL Urine Blood (Negative) Urine Nitrite (Negative) Urine Bilirubin (Negative) Urine Urobilinogen (Up TO 0.2) EU/dL Ur Leukocyte Esterase (Negative) Urine RBC (0-2) HPF Urine WBC (0-5) HPF Ur Epithelial Cells (Negative) HPF Urine Crystals (Negative) HPF Urine Bacteria (Negative) HPF Urine Casts (Negative) LPF Urine Mucus (Negative) Ur Culture Indicated? Urine Glucose (Negative) mg/dL Salicylates (<2.8) mg/dL Urine Opiates Screen (Negative) Urine Methadone Screen (Negative) Acetaminophen (10-30) ug/mL Ur Barbiturates Screen (Negative) Ur Tricyclics Screen (Negative) Ur Amphetamines Screen (Negative) U Benzodiazepines Scrn (Negative) Urine Cocaine Screen (Negative) Ur THC Screen (Negative) Ethyl Alcohol (<10) mg/dL < 3.0 COVID-19 Source SARS-CoV-2 (PCR) (Negative) Patient ABO/Rh Antibody Screen Range/Units 06/22/21 06/22/21 06/22/21 19:50 20:04 20:17 WBC (4.4-10.8) 10^3/uL RBC (3.93-5.22) 10^6/uL Hgb (11.2-15.7) g/dL Hct (36.0-46.0) % MCV (80-95) fL MCH (27.0-33.0) pg MCHC (32.0-36.0) % RDW (11.7-14.6) % Plt Count (130-400) 10^3/uL MPV (8.0-11.0) fL Immature Gran % Neutrophils % Lymphocytes % Monocytes % Eosinophils % Basophils % Nucleated RBC % % Absolute Neutrophils (1.2-6.7) 10^3/uL Absolute Lymphocytes (1.2-3.4) 10^3/uL Absolute Monocytes (0.1-0.8) 10^3/uL Absolute Eosinophils (0.0-0.7) 10^3/uL Absolute Basophils (0.0-0.2) 10^3/uL RBC Morphology Macrocytosis PT (9.3-11.0) sec INR (0.9-1.1) APTT (21.0-27.5) sec ABG Sample Site Right Radial ABG pH (7.35-7.45) 7.54 H ABG pCO2 (35-45) mmHg 41 ABG pO2 (80-105) mmHg 76 L ABG HCO3 (22-26) mmol/L 35 H ABG Total CO2 Not Applicable ABG O2 Saturation Not Applicable ABG Base Excess (-2-3) mmol/L 13 H VBG Lactate (0.6-1.4) mmol/L 4.2 H* Oxygen Liter Flow L 4 Sodium (136-145) mmol/L Potassium (3.5-5.1) mmol/L Chloride (98-107) mmol/L Carbon Dioxide (21.0-32.0) mmol/L Anion Gap (3-11) mmol/L BUN (7-18) mg/dL Creatinine (0.55-1.02) mg/dL Estimated GFR/1.73 m2 (mL/min/1.73m2) Glucose (74-106) mg/dL Calcium (8.5-10.1) mg/dL Magnesium (1.8-2.4) mg/dL Total Bilirubin (0.2-1.0) mg/dL AST (15-37) U/L ALT (14-59) U/L Alkaline Phosphatase (46-116) U/L Ammonia (11-32) umol/L Creatine Kinase (26-192) U/L Troponin I (<0.06) ng/mL Total Protein (6.4-8.2) g/dL Albumin (3.4-5.0) g/dL Lipase (73-393) U/L Procalcitonin ng/mL TSH (0.36-3.74) uIU/mL Urine Color (Yellow) Urine Clarity (Clear) Urine pH (5-8) Ur Specific Constantia (1.005-1.025) Urine Protein (Negative) mg/dL Urine Ketones (Negative) mg/dL Urine Blood (Negative) Urine Nitrite (Negative) Urine Bilirubin (Negative) Urine Urobilinogen (Up TO 0.2) EU/dL Ur Leukocyte Esterase (Negative) Urine RBC (0-2) HPF Urine WBC (0-5) HPF Ur Epithelial Cells (Negative) HPF Urine Crystals (Negative) HPF Urine Bacteria (Negative) HPF Urine Casts (Negative) LPF Urine Mucus (Negative) Ur Culture Indicated? Urine Glucose (Negative) mg/dL Salicylates (<2.8) mg/dL Urine Opiates Screen (Negative) Urine Methadone Screen (Negative) Acetaminophen (10-30) ug/mL Ur Barbiturates Screen (Negative) Ur Tricyclics Screen (Negative) Ur Amphetamines Screen (Negative) U Benzodiazepines Scrn (Negative) Urine Cocaine Screen (Negative) Ur THC Screen (Negative) Ethyl Alcohol (<10) mg/dL COVID-19 Source Nasal/Nares SARS-CoV-2 (PCR) (Negative) Negative Patient ABO/Rh Antibody Screen Range/Units 06/22/21 06/22/21 06/22/21 20:17 20:17 20:17 WBC (4.4-10.8) 10^3/uL RBC (3.93-5.22) 10^6/uL Hgb (11.2-15.7) g/dL Hct (36.0-46.0) % MCV (80-95) fL MCH (27.0-33.0) pg MCHC (32.0-36.0) % RDW (11.7-14.6) % Plt Count (130-400) 10^3/uL MPV (8.0-11.0) fL Immature Gran % Neutrophils % Lymphocytes % Monocytes % Eosinophils % Basophils % Nucleated RBC % % Absolute Neutrophils (1.2-6.7) 10^3/uL Absolute Lymphocytes (1.2-3.4) 10^3/uL Absolute Monocytes (0.1-0.8) 10^3/uL Absolute Eosinophils (0.0-0.7) 10^3/uL Absolute Basophils (0.0-0.2) 10^3/uL RBC Morphology Macrocytosis PT (9.3-11.0) sec 13.4 H INR (0.9-1.1) 1.3 H APTT (21.0-27.5) sec 23.1 ABG Sample Site ABG pH (7.35-7.45) ABG pCO2 (35-45) mmHg ABG pO2 (80-105) mmHg ABG HCO3 (22-26) mmol/L ABG Total CO2 ABG O2 Saturation ABG Base Excess (-2-3) mmol/L VBG Lactate (0.6-1.4) mmol/L Oxygen Liter Flow L Sodium (136-145) mmol/L Potassium (3.5-5.1) mmol/L Chloride (98-107) mmol/L Carbon Dioxide (21.0-32.0) mmol/L Anion Gap (3-11) mmol/L BUN (7-18) mg/dL Creatinine (0.55-1.02) mg/dL Estimated GFR/1.73 m2 (mL/min/1.73m2) Glucose (74-106) mg/dL Calcium (8.5-10.1) mg/dL Magnesium (1.8-2.4) mg/dL Total Bilirubin (0.2-1.0) mg/dL AST (15-37) U/L ALT (14-59) U/L Alkaline Phosphatase (46-116) U/L Ammonia (11-32) umol/L 33 H Creatine Kinase (26-192) U/L Troponin I (<0.06) ng/mL Total Protein (6.4-8.2) g/dL Albumin (3.4-5.0) g/dL Lipase (73-393) U/L Procalcitonin ng/mL TSH (0.36-3.74) uIU/mL Urine Color (Yellow) Urine Clarity (Clear) Urine pH (5-8) Ur Specific Constantia (1.005-1.025) Urine Protein (Negative) mg/dL Urine Ketones (Negative) mg/dL Urine Blood (Negative) Urine Nitrite (Negative) Urine Bilirubin (Negative) Urine Urobilinogen (Up TO 0.2) EU/dL Ur Leukocyte Esterase (Negative) Urine RBC (0-2) HPF Urine WBC (0-5) HPF Ur Epithelial Cells (Negative) HPF Urine Crystals (Negative) HPF Urine Bacteria (Negative) HPF Urine Casts (Negative) LPF Urine Mucus (Negative) Ur Culture Indicated? Urine Glucose (Negative) mg/dL Salicylates (<2.8) mg/dL Urine Opiates Screen (Negative) Urine Methadone Screen (Negative) Acetaminophen (10-30) ug/mL Ur Barbiturates Screen (Negative) Ur Tricyclics Screen (Negative) Ur Amphetamines Screen (Negative) U Benzodiazepines Scrn (Negative) Urine Cocaine Screen (Negative) Ur THC Screen (Negative) Ethyl Alcohol (<10) mg/dL COVID-19 Source SARS-CoV-2 (PCR) (Negative) Patient ABO/Rh Antibody Screen Range/Units 06/22/21 06/22/21 06/22/21 20:17 20:17 20:17 WBC (4.4-10.8) 10^3/uL RBC (3.93-5.22) 10^6/uL Hgb (11.2-15.7) g/dL Hct (36.0-46.0) % MCV (80-95) fL MCH (27.0-33.0) pg MCHC (32.0-36.0) % RDW (11.7-14.6) % Plt Count (130-400) 10^3/uL MPV (8.0-11.0) fL Immature Gran % Neutrophils % Lymphocytes % Monocytes % Eosinophils % Basophils % Nucleated RBC % % Absolute Neutrophils (1.2-6.7) 10^3/uL Absolute Lymphocytes (1.2-3.4) 10^3/uL Absolute Monocytes (0.1-0.8) 10^3/uL Absolute Eosinophils (0.0-0.7) 10^3/uL Absolute Basophils (0.0-0.2) 10^3/uL RBC Morphology Macrocytosis PT (9.3-11.0) sec INR (0.9-1.1) APTT (21.0-27.5) sec ABG Sample Site ABG pH (7.35-7.45) ABG pCO2 (35-45) mmHg ABG pO2 (80-105) mmHg ABG HCO3 (22-26) mmol/L ABG Total CO2 ABG O2 Saturation ABG Base Excess (-2-3) mmol/L VBG Lactate (0.6-1.4) mmol/L Oxygen Liter Flow L Sodium (136-145) mmol/L Potassium (3.5-5.1) mmol/L Chloride (98-107) mmol/L Carbon Dioxide (21.0-32.0) mmol/L Anion Gap (3-11) mmol/L BUN (7-18) mg/dL Creatinine (0.55-1.02) mg/dL Estimated GFR/1.73 m2 (mL/min/1.73m2) Glucose (74-106) mg/dL Calcium (8.5-10.1) mg/dL Magnesium (1.8-2.4) mg/dL Total Bilirubin (0.2-1.0) mg/dL AST (15-37) U/L ALT (14-59) U/L Alkaline Phosphatase (46-116) U/L Ammonia (11-32) umol/L Creatine Kinase (26-192) U/L Troponin I (<0.06) ng/mL Total Protein (6.4-8.2) g/dL Albumin (3.4-5.0) g/dL Lipase (73-393) U/L Procalcitonin ng/mL < 0.1 TSH (0.36-3.74) uIU/mL Urine Color (Yellow) Urine Clarity (Clear) Urine pH (5-8) Ur Specific Constantia (1.005-1.025) Urine Protein (Negative) mg/dL Urine Ketones (Negative) mg/dL Urine Blood (Negative) Urine Nitrite (Negative) Urine Bilirubin (Negative) Urine Urobilinogen (Up TO 0.2) EU/dL Ur Leukocyte Esterase (Negative) Urine RBC (0-2) HPF Urine WBC (0-5) HPF Ur Epithelial Cells (Negative) HPF Urine Crystals (Negative) HPF Urine Bacteria (Negative) HPF Urine Casts (Negative) LPF Urine Mucus (Negative) Ur Culture Indicated? Urine Glucose (Negative) mg/dL Salicylates (<2.8) mg/dL < 2.8 Urine Opiates Screen (Negative) Urine Methadone Screen (Negative) Acetaminophen (10-30) ug/mL < 2 Ur Barbiturates Screen (Negative) Ur Tricyclics Screen (Negative) Ur Amphetamines Screen (Negative) U Benzodiazepines Scrn (Negative) Urine Cocaine Screen (Negative) Ur THC Screen (Negative) Ethyl Alcohol (<10) mg/dL COVID-19 Source SARS-CoV-2 (PCR) (Negative) Patient ABO/Rh O Positive Antibody Screen NEGATIVE Range/Units 06/22/21 06/22/21 20:32 20:32 WBC (4.4-10.8) 10^3/uL RBC (3.93-5.22) 10^6/uL Hgb (11.2-15.7) g/dL Hct (36.0-46.0) % MCV (80-95) fL MCH (27.0-33.0) pg MCHC (32.0-36.0) % RDW (11.7-14.6) % Plt Count (130-400) 10^3/uL MPV (8.0-11.0) fL Immature Gran % Neutrophils % Lymphocytes % Monocytes % Eosinophils % Basophils % Nucleated RBC % % Absolute Neutrophils (1.2-6.7) 10^3/uL Absolute Lymphocytes (1.2-3.4) 10^3/uL Absolute Monocytes (0.1-0.8) 10^3/uL Absolute Eosinophils (0.0-0.7) 10^3/uL Absolute Basophils (0.0-0.2) 10^3/uL RBC Morphology Macrocytosis PT (9.3-11.0) sec INR (0.9-1.1) APTT (21.0-27.5) sec ABG Sample Site ABG pH (7.35-7.45) ABG pCO2 (35-45) mmHg ABG pO2 (80-105) mmHg ABG HCO3 (22-26) mmol/L ABG Total CO2 ABG O2 Saturation ABG Base Excess (-2-3) mmol/L VBG Lactate (0.6-1.4) mmol/L Oxygen Liter Flow L Sodium (136-145) mmol/L Potassium (3.5-5.1) mmol/L Chloride (98-107) mmol/L Carbon Dioxide (21.0-32.0) mmol/L Anion Gap (3-11) mmol/L BUN (7-18) mg/dL Creatinine (0.55-1.02) mg/dL Estimated GFR/1.73 m2 (mL/min/1.73m2) Glucose (74-106) mg/dL Calcium (8.5-10.1) mg/dL Magnesium (1.8-2.4) mg/dL Total Bilirubin (0.2-1.0) mg/dL AST (15-37) U/L ALT (14-59) U/L Alkaline Phosphatase (46-116) U/L Ammonia (11-32) umol/L Creatine Kinase (26-192) U/L Troponin I (<0.06) ng/mL Total Protein (6.4-8.2) g/dL Albumin (3.4-5.0) g/dL Lipase (73-393) U/L Procalcitonin ng/mL TSH (0.36-3.74) uIU/mL Urine Color (Yellow) Yellow Urine Clarity (Clear) Cloudy Urine pH (5-8) 6.0 Ur Specific Constantia (1.005-1.025) 1.025 Urine Protein (Negative) mg/dL Negative Urine Ketones (Negative) mg/dL Negative Urine Blood (Negative) Small H Urine Nitrite (Negative) Positive H Urine Bilirubin (Negative) Negative Urine Urobilinogen (Up TO 0.2) EU/dL 0.2 Ur Leukocyte Esterase (Negative) Trace Urine RBC (0-2) HPF 3-5 H Urine WBC (0-5) HPF 5-10 Ur Epithelial Cells (Negative) HPF Few Urine Crystals (Negative) HPF Negative Urine Bacteria (Negative) HPF Many Urine Casts (Negative) LPF Negative Urine Mucus (Negative) Negative Ur Culture Indicated? Yes Urine Glucose (Negative) mg/dL Negative Salicylates (<2.8) mg/dL Urine Opiates Screen (Negative) Negative Urine Methadone Screen (Negative) Negative Acetaminophen (10-30) ug/mL Ur Barbiturates Screen (Negative) Negative Ur Tricyclics Screen (Negative) Negative Ur Amphetamines Screen (Negative) Negative U Benzodiazepines Scrn (Negative) Positive A Urine Cocaine Screen (Negative) Negative Ur THC Screen (Negative) Negative Ethyl Alcohol (<10) mg/dL COVID-19 Source SARS-CoV-2 (PCR) (Negative) Patient ABO/Rh Antibody Screen ECG Data Attestation: I personally reviewed and interpreted this ECG (s) as follows: Interpretation: Please see official report by Dr. Jimenez. Sinus rhythm, ventricular of 95, no STEMI. Prolonged QT interval <Johnny Jimenez MD - Last Filed: 06/22/21 22:31> Patient seen and examined by me and discussed at length with JOHN Blevins. Please see his note for full documentation. I agree with history/physical and assessment/plan as outlined. Laboratory studies are surprisingly okay other than low potassium and low magnesium. EKG findings likely related to electrolyte abnormalities. Continues to be nonfocal and tract but is still not completely interactive. Suspect prolonged hypoglycemia as source of altered mental status. Head CT is negative. Plan admission for further management of hypoglycemia and electrolyte abnormalities. Lab Data Lab results reviewed: Yes I reviewed the patient's lab results. ECG Data Attestation: I personally reviewed and interpreted this ECG (s) as follows: Prior ECG tracings: available for review Interpretation: see EKG HPI <JOHN Fry - Last Filed: 06/23/21 00:07> General Mode of arrival: EMS . Date/Time Provider Initiated Documentation: 06/22/21 19:52 . Limitations to Documentation: altered mental status . Information obtained by: family (Son Saran) and EMS . HPI Narrative: This is a 70-year-old female, past medical history of diabetes, hypertension, alcohol abuse, presenting to the ER this evening via EMS after her son called a well person check after not hearing from his mother today as he typically would, EMS and law enforcement on, patient found unresponsive, vomit around her, glucose level noted to be 25, and a three-quarter empty bottle of vodka found near her bed. EMS stated it was difficult to get a good O2 sat however it was noted to be 79% on room air. After being placed on supplemental oxygen, O2 sat came up to the low 90s. An amp of glucose given on scene, glucose up into the 120s. Patient was unresponsive but agitated and combative, 5 of Versed given. I was able to speak with her son Saran, he states the patient is a full code and he does have power of employee benefits attorney. His direct line is [phone]. Saran report that he talk to his mother yesterday and she was seem to be at her baseline. States that she fell roughly 10 months ago but no recent illness or trauma. He received an email from her at [phone] this morning that seemed appropriate but did end abruptly. He contacted her at [phone] on the phone this afternoon and did not receive a phone call back. He admits that she does drink more than she states but does not smoke or partake in illicit drug use. He is not aware of any depression, SI, previous overdose attempts. Related Data Home Medications Medication Instructions Recorded Confirmed acetaminophen 500 mg tablet 500 mg PO Q6H PRN 09/01/19 03/22/21 blood sugar diagnostic #180 strip 09/20/20 03/22/21 blood sugar diagnostic #180 each 03/21/21 03/21/21 furosemide 20 mg tablet 20 mg PO DAILY PRN #30 tab 03/21/21 03/21/21 insulin glargine 100 unit/mL (3 35 unit SC DAILY #45 syrg 03/21/21 03/21/21 mL) subcutaneous pen lancets 30 gauge #100 each 03/21/21 03/21/21 potassium chloride 10 mEq 10 meq PO DAILY #30 cap 03/22/21 capsule,extended release pen needle, diabetic 31 gauge x #30 each 05/09/21 1/ Previous Rx's Medication Instructions Recorded blood sugar diagnostic #180 strip 09/20/20 blood sugar diagnostic #180 each 03/21/21 furosemide 20 mg tablet 20 mg PO DAILY PRN #30 tab 03/21/21 insulin glargine 100 unit/mL (3 35 unit SC DAILY #45 syrg 03/21/21 mL) subcutaneous pen lancets 30 gauge #100 each 03/21/21 potassium chloride 10 mEq 10 meq PO DAILY #30 cap 03/22/21 capsule,extended release pen needle, diabetic 31 gauge x #30 each 05/09/21 1/4 Allergies Allergy/AdvReac Type Severity Reaction Status Date / Time Penicillins Allergy Intermediate rash Verified 03/21/21 15:02 Sulfa (Sulfonamide Allergy Unknown Verified 03/21/21 15:02 Antibiotics) ct scan dye Allergy Unknown Uncoded 03/21/21 15:02 General Stated Complaint: AMS/LOC DEENA: 1 Review of Systems <JOHN Fry - Last Filed: 06/23/21 00:07> Unobtainable due to mental status PFS <JOHN Fry - Last Filed: 06/23/21 00:07> Medical History Ascites of liver (11/15/14) Diabetes mellitus (03/26/17) DKA (diabetic ketoacidoses) Essential hypertension (01/16/12) Infected sebaceous cyst Uncontrolled diabetes mellitus (~03/2017) complicated by peripheral neuropathy Uncontrolled type 2 diabetes mellitus without complication, without long-term current use of insulin (01/14/18) Surgical History Cervical Procedure S/P appendectomy S/P right cataract extraction (03/2019) S/P tonsillectomy Family History Grandmother Stroke Mother No problems noted. 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 Working smoke detector in home: Yes Fire extinguisher in home: Yes Carbon monox detector in home: Yes Do you feel safe at home: Yes Exam <JOHN Fry - Last Filed: 06/23/21 00:07> Const General: in distress and ill appearing chronically HENMT Head: normal to inspection, normocephalic and atraumatic Face and sinus: normal facial exam Mouth: moist mucous membranes abnormal (dry) Eyes General: appearance normal, both eyes and all related structures Periorbital: periorbital findings normal Eyelids: eyelids normal Conjunctivae: conjunctivae normal Sclera: sclerae normal Cornea: corneas normal Pupils: PERRL Direct ophthalmoscopy: normal light reflex Neck Neck: normal visual inspection, no lymphadenopathy, trachea midline and supple Resp Effort & Inspection: tachypneic Auscultation: clear to auscultation bilaterally and diminished lung sounds bilaterally in the lower lung azar Cardio Rate: regular rate Rhythm: regular rhythm GI Inspection: normal to inspection Palpation: soft, not firm and no pulsatile masses Auscultation: normal bowel sounds Back/Spine/Pelvis Back: other (Normal inspection) Skin General skin exam: no rashes or lesions noted Other: Abrasion right knee Neuro General: moves all extremities Cranial Nerves: PERRL Other: Patient is minimally responsive to sternal rub. She does minimally open her eyes to verbal stimuli but is nonverbal. Is unable to follow commands. Gag reflex is intact. Extrem General: capillary refill normal and no pedal edema Psych Appearance: grossly normal Mental Status: mental status grossly normal Course <JOHN Fry - Last Filed: 06/23/21 00:07> Vital Signs Vital signs: Vital Signs Temperature 36.6 C 06/22/21 19:42 Pulse 87 06/22/21 19:42 Respiratory Rate 42 H 06/22/21 19:42 Blood Pressure 124/76 06/22/21 19:42 Pulse Oximetry 98 06/22/21 19:42 Temperature 36.6 C 06/22/21 19:42 Pulse 87 06/22/21 19:42 Respiratory Rate 42 H 06/22/21 19:42 Blood Pressure 124/76 06/22/21 19:42 Blood Pressure Position Supine 06/22/21 19:42 Pulse Oximetry 98 06/22/21 19:42 Oxygen Delivery Method Non-Rebreather 06/22/21 19:42 Lab/Test Results Lab/Test Results: 06/22/21 19:56 Blood Blood Culture - Pending 06/22/21 19:56 Blood Blood Culture - Pending Critical Care Time <JOHN Fry - Last Filed: 06/23/21 00:07> Critical Care Time Critical Care Time: Yes Total Critical Care Time: 60 Attestation: Upon my evaluation, this patient had a high probability of clinically significant, life-threatening deterioration due to their current medical conditions, which required my direct attention, intervention, and personal management. I have personally provided greater than 30 minutes of critical care time exclusive of the time spend on separately billable procedures. Time includes obtaining a history, examining the patient, pulse oximetry, review of laboratory data, radiology results, discussion with consultants, arranging urgent treatment with development of a management plan, evaluation of patient's response to treatment, and monitoring for potential decompensation. Interventions were performed as documented above.
[2021-06-22 20:16] LABS: Abs Immature Grans 0.05 10^3/uL (0.0-0.06); Absolute Basophil Count 0.03 10^3/uL (0.0-0.2); Absolute Lymphocyte Count 0.45 10^3/uL (1.2-3.4); Basophils % 0.2; HCT 42.5 % (36.0-46.0); Immature Grans % 0.3; Lymphocytes % 3.1; MCH 34.7 pg (27.0-33.0); MCHC 32.9 % (32.0-36.0); MCV 105.2 fL (80-95); MPV 10.6 fL (8.0-11.0); Monocytes % 7.1; Neutrophils % 89.3; Nucleated RBC 0 %; Platelet Count 202 10^3/uL (130-400); RBC 4.04 10^6/uL (3.93-5.22); RDW 15.1 % (11.7-14.6); RDW-SD 58.8 fL; WBC 14.42 10^3/uL (4.4-10.8)
[2021-06-22 20:24] LABS: Absolute Monocyte Count 1.02 10^3/uL (0.1-0.8); Absolute Neutrophil Count 12.88 10^3/uL (1.2-6.7)
[2021-06-22] MEDS: DEXTROSE 5%-0.9% SALINE 1,000 ML 150 ML IV (20:25)
[2021-06-22 20:30] LABS: Lactate 4.2 mmol/L (0.6-1.4)
[2021-06-22] MEDS: Lactated Ringers 1,000 ML 1000 ML IV (20:33)
[2021-06-22 20:35] LABS: Source Nasal/Nares
[2021-06-22] MEDS: Midazolam 2 MG/2 ML VIAL 5 MG IVP (21:00)
[2021-06-22 21:11] LABS: Creatine Kinase 416 U/L (26-192); Lipase 21 U/L (73-393)
[2021-06-22 21:11] LABS: Ammonia 33 umol/L (11-32)
[2021-06-22 21:17] LABS: Acetaminophen < 2 ug/mL (10-30); Salicylate < 2.8 mg/dL (<2.8)
[2021-06-22 21:18] LABS: INR 1.3 (0.9-1.1); Prothrombin Time 13.4 sec (9.3-11.0)
[2021-06-22 21:19] LABS: PTT Activated 23.1 sec (21.0-27.5)
[2021-06-22 21:25] LABS: Macrocytosis 3+
[2021-06-22 21:25] LABS: Clarity Cloudy (Clear); Specific Gravity 1.025 (1.005-1.025)
[2021-06-22 21:26] LABS: Bacteria Many HPF (Negative); Bilirubin Negative (Negative); Blood Small (Negative); Casts Negative LPF (Negative); Crystals Negative HPF (Negative); Epithelial Cells Few HPF (Negative); Glucose Negative (Negative); Ketones Negative (Negative); Leukocyte Esterase Trace (Negative); Mucus Negative (Negative); Nitrite Positive (Negative); Urobilinogen 0.2 EU/dL (Up TO 0.2)
[2021-06-22 21:27] LABS: C & S Indicated? Yes
[2021-06-22 21:28] LABS: Albumin 3.1 g/dL (3.4-5.0); Alkaline Phosphatase 185 U/L (46-116); BUN 8 mg/dL (7-18); Bilirubin, Total 0.7 mg/dL (0.2-1.0); Calcium 7.9 mg/dL (8.5-10.1); Chloride 102 mmol/L (98-107); Glucose 88 mg/dL (74-106); Sodium 145 mmol/L (136-145); Total Protein 7.3 g/dL (6.4-8.2)
[2021-06-22 21:29] LABS: ALT 37 U/L (14-59); AST 86 U/L (15-37); Anion Gap 6.1 mmol/L (3-11); CO2 36.9 mmol/L (21.0-32.0); ETHANOL BLOOD < 3.0 mg/dL (<10)
[2021-06-22 21:30] LABS: Magnesium 1.4 mg/dL (1.8-2.4); TSH (W/Ref FT4) 1.11 uIU/mL (0.36-3.74); Troponin I < 0.05 ng/mL (<0.06)
[2021-06-22 21:31] LABS: Potassium 2.4 mmol/L (3.5-5.1)
[2021-06-22 21:41] LABS: *BENZODIAZEPINES SCREEN URINE Positive (Negative); METHADONE URINE SCREEN Negative (Negative)
[2021-06-22 21:42] LABS: *AMPHETAMINES SCREEN URINE Negative (Negative); *BARBITURATES SCREEN URINE Negative (Negative); Cannabinoids THC Negative (Negative); Cocaine Screen,Urine Negative (Negative); OPIATES URINE SCREEN Negative (Negative); Tricyclic Antidepressants Negative (Negative)
[2021-06-22 21:49] LABS: COVID-19 PCR Negative (Negative)
[2021-06-22 21:51] LABS: Procalcitonin < 0.1 ng/mL
[2021-06-22 22:08] LABS: BE 13 mmol/L (-2-3); HCO3 35 mmol/L (22-26); pCO2 41 mmHg (35-45); pH 7.54 (7.35-7.45); pO2 76 mmHg (80-105)
[2021-06-22 22:15] LABS: FIO2L 4 L; Site Right Radial
--- NOTE | 2021-06-22 22:17 | DI.VRAD_ITS ---
PROCEDURE INFORMATION: Exam: CT Head Without Contrast Exam date and time: 06/22/2021 7:57 PM Age: 70 years old Clinical indication: Other: AMS TECHNIQUE: Imaging protocol: Computed tomography of the head without contrast. COMPARISON: No relevant prior studies available. FINDINGS: Brain: Normal. No hemorrhage. Unremarkable white matter. No mass effect. Cerebral ventricles: No ventriculomegaly. Paranasal sinuses: Visualized sinuses are unremarkable. No fluid levels. Mastoid air cells: Visualized mastoid air cells are well aerated. Bones/joints: Unremarkable. No acute fracture. Soft tissues: Unremarkable. IMPRESSION: No acute intracranial abnormality. PROCEDURE INFORMATION: Exam: CT Cervical Spine Without Contrast Exam date and time: 06/22/2021 7:57 PM Age: 70 years old Clinical indication: Other: AMS TECHNIQUE: Imaging protocol: Computed tomography images of the cervical spine without contrast. COMPARISON: No relevant prior studies available. FINDINGS: Vertebrae: No acute fracture. Normal alignment. Multilevel degenerative disk disease and facet arthropathy with neuroforaminal and canal stenosis.. Soft tissues: Unremarkable. Lungs: Lung apices are normal. IMPRESSION: No acute findings. Dictated and Authenticated by: Marquez Edward MD. Ordering:SHWETA Thomas MD
--- NOTE | 2021-06-22 22:19 | DI.VRAD_ITS ---
PROCEDURE INFORMATION: Exam: CT Chest Without Contrast; Diagnostic Exam date and time: 06/22/2021 8:03 PM Age: 70 years old Clinical indication: Other: AMS TECHNIQUE: Imaging protocol: Diagnostic computed tomography of the chest without contrast. 3D rendering (Not supervised by radiologist): MIP and/or 3D reconstructed images were created by the technologist. COMPARISON: CR ABD FLAT UPRIGHT PA CHEST 08/30/2014 11:43 AM FINDINGS: Lungs: Unremarkable. No consolidation. No masses. Pleural spaces: Unremarkable. No pneumothorax. No pleural effusion. Heart: Unremarkable. No cardiomegaly. No pericardial effusion. Aorta: Unremarkable. No aortic aneurysm. Lymph nodes: Unremarkable. No enlarged lymph nodes. Bones/joints: Unremarkable. No acute fracture. Soft tissues: Unremarkable. IMPRESSION: No acute findings. PROCEDURE INFORMATION: Exam: CT Abdomen And Pelvis Without Contrast Exam date and time: 06/22/2021 8:03 PM Age: 70 years old Clinical indication: Other: AMS TECHNIQUE: Imaging protocol: Computed tomography of the abdomen and pelvis without contrast. 3D rendering (Not supervised by radiologist): MIP and/or 3D reconstructed images were created by the technologist. COMPARISON: CR ABD FLAT UPRIGHT PA CHEST 08/30/2014 11:43 AM FINDINGS: Liver: Hepatic steatosis and possible early cirrhosis. Gallbladder and bile ducts: Normal. No calcified stones. No ductal dilation. Pancreas: Normal. No ductal dilation. Spleen: Normal. No splenomegaly. Adrenal glands: Normal. No mass. Kidneys and ureters: Nonobstructing renal calculi. Stomach and bowel: Colonic diverticula. Appendix: No evidence of appendicitis. Intraperitoneal space: Unremarkable. No free air. No significant fluid collection. Vasculature: Unremarkable. No abdominal aortic aneurysm. Lymph nodes: Unremarkable. No enlarged lymph nodes. Urinary bladder: No obstructing urinary calculus or hydronephrosis. Escobedo catheter in collapsed urinary bladder. Reproductive: Unremarkable as visualized. Bones/joints: Unremarkable. No acute fracture. Soft tissues: Unremarkable. IMPRESSION: No acute finding. Dictated and Authenticated by: Marquez Edward MD. Ordering:SHWETA Thomas MD
[2021-06-22] MEDS: POTASSIUM CHLORIDE 20 MEQ/100 ML BAG 50 MEQ IVPB (22:33)
[2021-06-22] MEDS: MAGNESIUM SULFATE 1 GM/100 ML BAG IVPB (22:35)
--- NOTE | 2021-06-22 22:55 | RESPIRATORY ---
RT called in for 70yr female with AMS and SpO2 79% on arrival. Upon arrival, pt on NRB 100% O2 with SpO2 99%. Pt unable to answer questions, but pulling on restraints and writhing in stretcher. RT accompanied RN to CT after pt was given sedation. Pt was placed on 6L NC for transport and maintained SpO2 >92% throughout. Pt was placed on 4L NC upon return and ABG was drawn by RT. Results were reviewed by RN and O2 was reduced to 2L NC with eTCO2 monitoring.
[2021-06-22] MEDS: Dextrose 50%-Water 25 GM/50 ML SYR IVP (23:04)
[2021-06-22 23:32] LABS: Troponin I 0.07 ng/mL (<0.06)
--- NOTE | 2021-06-22 23:36 | NUR.NOTE ---
2335n patient is becoming more aware of surroundings. just told me Ihave to go ton nthe bathroom. Explained that she had a britton in place. Relaxed after that information.Nursing Note:
[2021-06-23] VITALS (128 sets, daily range): BP systolic 99–145; BP diastolic 37–109; PULSE 63–133; RESP 12–29; TEMP 36.4–36.9; O2SAT 78–100
--- NOTE | 2021-06-23 00:27 | HPE_ITS ---
Date of service: 06/23/21 Time of Service: 00:27 Assessment and Plan Assessment and plan (1) Hypoglycemia: Status: Acute Assessment and plan: We cannot obtain a history from her. The suspicion is that she has hypoglycemia from her insulin treatment for her diabetes that was probably unopposed from any oral diet since yesterday morning. (2) Hypokalemia: Status: Acute Assessment and plan: Her potassium is being replaced in the emergency department now. This will be rechecked and she may require another dose of potassium.we will ask that the potassium be rechecked soon. (3) AMS (altered mental status): Status: Acute Assessment and plan: The head CT is negative. I suspect her altered mental status is due to the hypoglycemia. We will monitor her blood sugars through the night and give her D10 to help keep her sugars from getting too low. (4) Hypomagnesemia: Status: Acute Assessment and plan: She did receive 1 g of magnesium in the emergency department. This will be rechecked and it is possible she may need another dose. (5) Leukocytosis: Status: Acute Assessment and plan: She does have a few white cells in her urine and the urine culture is being done. It is possible she has a urinary tract infection but without the fever we will hold on antibiotics except I will give her 1 dose of ceftriaxone now pending the results of the urine culture. History of Present Illness History of Present Illness Chief Complaint: unresponsiveness Narrative: This 70-year-old female was found unresponsive at her home. She talked to her son by email at [phone] yesterday morning. He tried calling her later in the afternoon but he did not talk to her and he was low and became worried and called the police to check on her and found her unresponsive. EMS found that she had a blood sugar of 25. She was given a bolus of D50 and had some increased responsiveness but was combative so she received Versed to calm her down. She was brought to the emergency department. Upon presentation here her blood sugar was about 120 but then dropped to about 57 she received another liter of D50. She had extensive evaluation with head and neck chest abdomen pelvis CT and lab tests. Her urinalysis showed positive nitrate but no significant white cells. Her white blood cell count is a bit elevated. Potassium and magnesium are both low. Drug screen is negative. She is being admitted to the intensive care unit for further monitoring and care. Review of systems is not obtainable because of her mental status. Review of Systems Unobtainable due to mental status [facility] Medical History Ascites of liver (11/15/14) Diabetes mellitus (03/26/17) DKA (diabetic ketoacidoses) Essential hypertension (01/16/12) Infected sebaceous cyst Uncontrolled diabetes mellitus (~03/2017) complicated by peripheral neuropathy Uncontrolled type 2 diabetes mellitus without complication, without long-term current use of insulin (01/14/18) Surgical History Cervical Procedure S/P appendectomy S/P right cataract extraction (03/2019) S/P tonsillectomy Family History Grandmother Stroke Mother No problems noted. 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 Working smoke detector in home: Yes Fire extinguisher in home: Yes Carbon monox detector in home: Yes Do you feel safe at home: Yes Meds Allergies and Home Medications Allergies Allergy/AdvReac Type Severity Reaction Status Date / Time Penicillins Allergy Intermediate rash Verified 03/21/21 15:02 Sulfa (Sulfonamide Allergy Unknown Verified 03/21/21 15:02 Antibiotics) ct scan dye Allergy Unknown Uncoded 03/21/21 15:02 Home Medications Medication Instructions Recorded Confirmed Type acetaminophen 500 mg tablet 500 mg PO Q6H PRN 09/01/19 03/22/21 History blood sugar diagnostic #180 strip 09/20/20 03/22/21 Rx blood sugar diagnostic #180 each 03/21/21 03/21/21 Rx furosemide 20 mg tablet 20 mg PO DAILY PRN #30 tab 03/21/21 03/21/21 Rx insulin glargine 100 unit/mL (3 35 unit SC DAILY #45 syrg 03/21/21 03/21/21 Rx mL) subcutaneous pen lancets 30 gauge #100 each 03/21/21 03/21/21 Rx potassium chloride 10 mEq 10 meq PO DAILY #30 cap 03/22/21 Rx capsule,extended release pen needle, diabetic 31 gauge x #30 each 05/09/21 Rx / Exam Const General: disheveled and ill appearing Nutritional Appearance: obese Limitations: altered mental status Other: She did not follow any directions. She was half undressed and had wrist restraints on. She had some blood around her mouth. Eyes Eyelids: eyelids normal Pupils: PERRL EOM: EOM abnormal Neck Neck: normal visual inspection and no lymphadenopathy Resp Effort & Inspection: normal respiratory effort and no retractions Auscultation: no rales, no rhonchi and no wheezes Cardio Jugular venous pressure: no JVD Rate: regular rate Rhythm: regular rhythm Heart Sounds: S1 normal, S2 normal, no gallops and no murmurs GI Palpation: soft, no hepatosplenomegaly, no masses and nontender Neuro Speech: abnormal speech Motor: muscle tone normal throughout Extrem General: normal to inspection and no pedal edema Results Labs Result diagrams: 06/22/21 19:50 06/22/21 19:50 Labs: Laboratory Results - last 24 hr 06/22/21 06/22/21 06/22/21 19:50 19:50 19:50 WBC 14.42 H RBC 4.04 Hgb 14.0 Hct 42.5 MCV 105.2 H MCH 34.7 H MCHC 32.9 RDW 15.1 H Plt Count 202 MPV 10.6 Immature Gran % 0.3 Neutrophils % 89.3 Lymphocytes % 3.1 Monocytes % 7.1 Eosinophils % 0.0 Basophils % 0.2 Nucleated RBC % 0 Absolute Neutrophils 12.88 H Absolute Lymphocytes 0.45 L Absolute Monocytes 1.02 H Absolute Eosinophils 0.00 Absolute Basophils 0.03 RBC Morphology See Below Macrocytosis 3+ PT INR APTT ABG Sample Site ABG pH ABG pCO2 ABG pO2 ABG HCO3 ABG Total CO2 ABG O2 Saturation ABG Base Excess VBG Lactate Oxygen Liter Flow Sodium 145 Potassium 2.4 L* Chloride 102 Carbon Dioxide 36.9 H Anion Gap 6.1 BUN 8 Creatinine 1.0 Estimated GFR/1.73 m2 54.50 Glucose 88 Calcium 7.9 L Magnesium 1.4 L Total Bilirubin 0.7 AST 86 H ALT 37 Alkaline Phosphatase 185 H Ammonia Creatine Kinase 416 H Troponin I < 0.05 Total Protein 7.3 Albumin 3.1 L Lipase 21 Procalcitonin TSH 1.11 Urine Color Urine Clarity Urine pH Ur Specific Raymond Urine Protein Urine Ketones Urine Blood Urine Nitrite Urine Bilirubin Urine Urobilinogen Ur Leukocyte Esterase Urine RBC Urine WBC Ur Epithelial Cells Urine Crystals Urine Bacteria Urine Casts Urine Mucus Ur Culture Indicated? Urine Glucose Salicylates Urine Opiates Screen Urine Methadone Screen Acetaminophen Ur Barbiturates Screen Ur Tricyclics Screen Ur Amphetamines Screen U Benzodiazepines Scrn Urine Cocaine Screen Ur THC Screen Ethyl Alcohol < 3.0 COVID-19 Source SARS-CoV-2 (PCR) Patient ABO/Rh Antibody Screen 06/22/21 06/22/21 06/22/21 19:50 20:04 20:17 WBC RBC Hgb Hct MCV MCH MCHC RDW Plt Count MPV Immature Gran % Neutrophils % Lymphocytes % Monocytes % Eosinophils % Basophils % Nucleated RBC % Absolute Neutrophils Absolute Lymphocytes Absolute Monocytes Absolute Eosinophils Absolute Basophils RBC Morphology Macrocytosis PT INR APTT ABG Sample Site Right Radial ABG pH 7.54 H ABG pCO2 41 ABG pO2 76 L ABG HCO3 35 H ABG Total CO2 Not Applicable ABG O2 Saturation Not Applicable ABG Base Excess 13 H VBG Lactate 4.2 H* Oxygen Liter Flow 4 Sodium Potassium Chloride Carbon Dioxide Anion Gap BUN Creatinine Estimated GFR/1.73 m2 Glucose Calcium Magnesium Total Bilirubin AST ALT Alkaline Phosphatase Ammonia Creatine Kinase Troponin I Total Protein Albumin Lipase Procalcitonin TSH Urine Color Urine Clarity Urine pH Ur Specific Raymond Urine Protein Urine Ketones Urine Blood Urine Nitrite Urine Bilirubin Urine Urobilinogen Ur Leukocyte Esterase Urine RBC Urine WBC Ur Epithelial Cells Urine Crystals Urine Bacteria Urine Casts Urine Mucus Ur Culture Indicated? Urine Glucose Salicylates Urine Opiates Screen Urine Methadone Screen Acetaminophen Ur Barbiturates Screen Ur Tricyclics Screen Ur Amphetamines Screen U Benzodiazepines Scrn Urine Cocaine Screen Ur THC Screen Ethyl Alcohol COVID-19 Source Nasal/Nares SARS-CoV-2 (PCR) Negative Patient ABO/Rh Antibody Screen 06/22/21 06/22/21 06/22/21 20:17 20:17 20:17 WBC RBC Hgb Hct MCV MCH MCHC RDW Plt Count MPV Immature Gran % Neutrophils % Lymphocytes % Monocytes % Eosinophils % Basophils % Nucleated RBC % Absolute Neutrophils Absolute Lymphocytes Absolute Monocytes Absolute Eosinophils Absolute Basophils RBC Morphology Macrocytosis PT 13.4 H INR 1.3 H APTT 23.1 ABG Sample Site ABG pH ABG pCO2 ABG pO2 ABG HCO3 ABG Total CO2 ABG O2 Saturation ABG Base Excess VBG Lactate Oxygen Liter Flow Sodium Potassium Chloride Carbon Dioxide Anion Gap BUN Creatinine Estimated GFR/1.73 m2 Glucose Calcium Magnesium Total Bilirubin AST ALT Alkaline Phosphatase Ammonia 33 H Creatine Kinase Troponin I Total Protein Albumin Lipase Procalcitonin TSH Urine Color Urine Clarity Urine pH Ur Specific Raymond Urine Protein Urine Ketones Urine Blood Urine Nitrite Urine Bilirubin Urine Urobilinogen Ur Leukocyte Esterase Urine RBC Urine WBC Ur Epithelial Cells Urine Crystals Urine Bacteria Urine Casts Urine Mucus Ur Culture Indicated? Urine Glucose Salicylates Urine Opiates Screen Urine Methadone Screen Acetaminophen Ur Barbiturates Screen Ur Tricyclics Screen Ur Amphetamines Screen U Benzodiazepines Scrn Urine Cocaine Screen Ur THC Screen Ethyl Alcohol COVID-19 Source SARS-CoV-2 (PCR) Patient ABO/Rh Antibody Screen 06/22/21 06/22/21 06/22/21 20:17 20:17 20:17 WBC RBC Hgb Hct MCV MCH MCHC RDW Plt Count MPV Immature Gran % Neutrophils % Lymphocytes % Monocytes % Eosinophils % Basophils % Nucleated RBC % Absolute Neutrophils Absolute Lymphocytes Absolute Monocytes Absolute Eosinophils Absolute Basophils RBC Morphology Macrocytosis PT INR APTT ABG Sample Site ABG pH ABG pCO2 ABG pO2 ABG HCO3 ABG Total CO2 ABG O2 Saturation ABG Base Excess VBG Lactate Oxygen Liter Flow Sodium Potassium Chloride Carbon Dioxide Anion Gap BUN Creatinine Estimated GFR/1.73 m2 Glucose Calcium Magnesium Total Bilirubin AST ALT Alkaline Phosphatase Ammonia Creatine Kinase Troponin I Total Protein Albumin Lipase Procalcitonin < 0.1 TSH Urine Color Urine Clarity Urine pH Ur Specific Raymond Urine Protein Urine Ketones Urine Blood Urine Nitrite Urine Bilirubin Urine Urobilinogen Ur Leukocyte Esterase Urine RBC Urine WBC Ur Epithelial Cells Urine Crystals Urine Bacteria Urine Casts Urine Mucus Ur Culture Indicated? Urine Glucose Salicylates < 2.8 Urine Opiates Screen Urine Methadone Screen Acetaminophen < 2 Ur Barbiturates Screen Ur Tricyclics Screen Ur Amphetamines Screen U Benzodiazepines Scrn Urine Cocaine Screen Ur THC Screen Ethyl Alcohol COVID-19 Source SARS-CoV-2 (PCR) Patient ABO/Rh O Positive Antibody Screen NEGATIVE 06/22/21 06/22/21 06/22/21 20:32 20:32 23:00 WBC RBC Hgb Hct MCV MCH MCHC RDW Plt Count MPV Immature Gran % Neutrophils % Lymphocytes % Monocytes % Eosinophils % Basophils % Nucleated RBC % Absolute Neutrophils Absolute Lymphocytes Absolute Monocytes Absolute Eosinophils Absolute Basophils RBC Morphology Macrocytosis PT INR APTT ABG Sample Site ABG pH ABG pCO2 ABG pO2 ABG HCO3 ABG Total CO2 ABG O2 Saturation ABG Base Excess VBG Lactate Oxygen Liter Flow Sodium Potassium Chloride Carbon Dioxide Anion Gap BUN Creatinine Estimated GFR/1.73 m2 Glucose Calcium Magnesium Total Bilirubin AST ALT Alkaline Phosphatase Ammonia Creatine Kinase Troponin I 0.07 H Total Protein Albumin Lipase Procalcitonin TSH Urine Color Yellow Urine Clarity Cloudy Urine pH 6.0 Ur Specific Raymond 1.025 Urine Protein Negative Urine Ketones Negative Urine Blood Small H Urine Nitrite Positive H Urine Bilirubin Negative Urine Urobilinogen 0.2 Ur Leukocyte Esterase Trace Urine RBC 3-5 H Urine WBC 5-10 Ur Epithelial Cells Few Urine Crystals Negative Urine Bacteria Many Urine Casts Negative Urine Mucus Negative Ur Culture Indicated? Yes Urine Glucose Negative Salicylates Urine Opiates Screen Negative Urine Methadone Screen Negative Acetaminophen Ur Barbiturates Screen Negative Ur Tricyclics Screen Negative Ur Amphetamines Screen Negative U Benzodiazepines Scrn Positive A Urine Cocaine Screen Negative Ur THC Screen Negative Ethyl Alcohol COVID-19 Source SARS-CoV-2 (PCR) Patient ABO/Rh Antibody Screen Last Vital Signs Temp 36.6 C 06/22/21 20:01 Pulse 76 06/22/21 23:09 Resp 24 06/22/21 20:36 BP 124/76 06/22/21 20:01 Pulse Ox 98 06/22/21 19:42
[2021-06-23] MEDS: Dextrose 50%-Water 25 GM/50 ML SYR ×2 (01:00→03:19)
[2021-06-23 02:14] LABS: BUN 6 mg/dL (7-18); Calcium 7.8 mg/dL (8.5-10.1); Glucose 77 mg/dL (74-106)
[2021-06-23 02:15] LABS: Anion Gap 5.2 mmol/L (3-11); CO2 33.8 mmol/L (21.0-32.0); CREATININE 0.9 mg/dL (0.55-1.02); Chloride 103 mmol/L (98-107); Magnesium 1.5 mg/dL (1.8-2.4); Sodium 142 mmol/L (136-145)
[2021-06-23 02:18] LABS: Potassium 2.4 mmol/L (3.5-5.1)
[2021-06-23] MEDS: Normal Saline Flush 10 ML SYR IVP ×2 (03:21→16:30)
[2021-06-23] MEDS: POTASSIUM CHLORIDE 20 MEQ/100 ML BAG 50 MEQ IVPB (03:24)
[2021-06-23] MEDS: DEXTROSE 10%-WATER 500 ML 100 ML IV ×2 (03:24→09:08)
[2021-06-23] MEDS: Enoxaparin 40 MG/0.4 ML SYR SC (04:51)
[2021-06-23 07:36] LABS: Troponin I 0.06 ng/mL (<0.06)
[2021-06-23 07:50] LABS: Lactate 1.6 mmol/L (0.6-1.4)
[2021-06-23 07:55] LABS: Abs Immature Grans 0.03 10^3/uL (0.0-0.06); Absolute Basophil Count 0.03 10^3/uL (0.0-0.2); Absolute Eosinophil Count 0.03 10^3/uL (0.0-0.7); Absolute Lymphocyte Count 1.15 10^3/uL (1.2-3.4); Absolute Monocyte Count 1.03 10^3/uL (0.1-0.8); Basophils % 0.3; Eosinophils % 0.3; HCT 34.1 % (36.0-46.0); Immature Grans % 0.3; Lymphocytes % 12.2; MCH 35.2 pg (27.0-33.0); MCHC 34.3 % (32.0-36.0); MCV 102.7 fL (80-95); MPV 10.6 fL (8.0-11.0); Monocytes % 10.9; Nucleated RBC 0 %; Platelet Count 148 10^3/uL (130-400); RBC 3.32 10^6/uL (3.93-5.22); RDW-SD 56.8 fL
[2021-06-23 07:58] LABS: Absolute Neutrophil Count 7.15 10^3/uL (1.2-6.7)
[2021-06-23 07:59] LABS: HGB 11.7 g/dL (11.2-15.7); WBC 9.41 10^3/uL (4.4-10.8)
[2021-06-23 08:02] LABS: BUN 6 mg/dL (7-18); CREATININE 0.9 mg/dL (0.55-1.02); Calcium 7.2 mg/dL (8.5-10.1); Glucose 106 mg/dL (74-106); Sodium 143 mmol/L (136-145)
[2021-06-23 08:03] LABS: Anion Gap 6.2 mmol/L (3-11); CO2 32.8 mmol/L (21.0-32.0); Chloride 104 mmol/L (98-107)
--- NOTE | 2021-06-23 08:36 | INITIAL_ITS ---
- If Service Date Differs Date of service: 06/23/21 Time of Service: 08:36 Care Management Initial Assess REASON FOR HOSPITALIZATION:: Hypoglycemia PAST MEDICAL HISTORY/PAST SURGICAL HISTORY:: Medical History . Ascites of liver (11/15/14). Diabetes mellitus (03/26/17). DKA (diabetic ketoacidoses). Essential hypertension (01/16/12). Infected sebaceous cyst. Uncontrolled diabetes mellitus (~03/2017). complicated by peripheral neuropathy. Uncontrolled type 2 diabetes mellitus without complication, without long-term current use of insulin (01/14/18). Surgical History . Cervical Procedure. S/P appendectomy. S/P right cataract extraction (03/2019). S/P tonsillectomy PREVIOUS FUNCTIONAL STATUS/SOCIAL/FAMILY SUPPORTS:: Roselyn lives alone in a single family home in [facility] . She has one son, Shankar, who lives closeby and is very supportive. 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 She is independent at baseline and receives no community services. CURRENT FUNCTIONAL STATUS:: Roselyn was lying in bed when CM met with her. She was polite but a little vague and slow to respond to questions. Roselyn asked CM what happened to her. She stated that she has no recollection of how she got to the hospital. CM shared the events as described in her chart in the ED notes. Roselyn knew who she was and where she is but could not tell CM whether or not she takes Insulin for her diabetes. Today her FBS was 106 at 7:42 am and after receiving D10/W, have remained in the 140's to 150's. IV glucose d/c'd. Roselyn's vital signs are stable. ADVANCE DIRECTIVES:: on file. [facility] emma Frye Has patient been provided with info about the portal/API?: Yes Did the patient sign up for the portal?: No CODE STATUS:: Full Code INSURANCE COVERAGE / FINANCIAL ISSUES:: Medicare. [place] CURRENT HOME/COMMUNITY SERVICES/EQUIPMENT:: none PRIMARY CARE PHYSICIAN:: Renée Walker POTENTIAL DISCHARGE NEEDS:: Follow up with PCP and plan of care PATIENT/FAMILY EDUCATION NEEDS:: Review of discharge instructions including medications and diabetes management, activity, diet, limitations, Ask Me Three TRANSPORTATION:: via private vehicle with family PLAN:: Christina will likely return home with no new services. She will folow up with her PCP and plan of care and transport with [facility]. CM will continue to assess for and suppport discharge needs.
[2021-06-23] MEDS: MAGNESIUM SULFATE 2 GM/50 ML BAG IVPB ×2 (08:50→23:44)
--- NOTE | 2021-06-23 09:12 | PUCC_ITS ---
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 Initially I had concerns as to whether or not she could be on an oral agent such as a glipizide given that her glucose was taking a long time to recovery and was persistently low so I started stress dose steroids. Throughout the day however, her glucose levels improved and is now hyperglycemic. Given the revoery it is most likely that her hypoglycemic event was due to insulin use. Given her mental health history she should be assessed as to whether this was intentional or not. Recommendations Pulmonary: No acute concerns Cardiac: No acute concerns Renal: Hypokalemia - replete to 4.0 - on scheduled 40 tid - will repeat lytes this evening Hypomagnesemia - replete to 2.0 I&O: Intake & Output 06/20/21 06/21/21 06/22/21 06/23/21 23:59 23:59 23:59 23:59 Intake Total 100 / 100 1700 / 1700 Output Total 550 / 550 Balance 100 / 100 1150 / 1150 Weight 84.5 kg 82.9 kg Daily Fluid Goal:: slightly positive GI Nutrition: OK for diet Infectious Disease: UTI - on ceftriaxone Hematologic: No acute concerns Neurologic: AMS - likely 2/2 hypoglycemia Endocrine: Hypoglycemia 2/2 insulin use - s/p D10 drip and hydrocortisone - both subsequently discontinued with glucose improvement - assess for intentional overdose - can likely restart home regimen slowly Lines: PIV Prophylaxis: Lovenox Code Status: Resuscitation Status Full Code Subjective Critical and life-threatening events over the past 24 hours: This is a 70 yo female who is a poor historian who was found to be unresponsive with a glucose in the 20's. It is unclear what her diabetes regimen is and whether she is on an oral glipizide or not. On my assessment she says she does not take any medicine, does not have diabetes and does not remember what happened. She was also found to have a UTI. Her head CT was normal. She was initially started on a D10 drip with persistently low blood sugars and so I started stress dose steroids. Throughout the day her blood sugar increased and is now high. Exam Const General: no acute distress Nutritional Appearance: well nourished [facility] Head: normocephalic Ears: external ears normal and no periauricular adenopathy General nose exam: nasal mucous membranes and turbinates normal Face and sinus: sinuses nontender Mouth: oropharynx normal and moist mucous membranes Teeth and gingiva: dentition normal Eyes General: appearance normal, both eyes and all related structures Pupils: PERRL Neck Neck: normal visual inspection and no lymphadenopathy Chest Chest: normal inspection of the chest Resp Effort & Inspection: normal respiratory effort Auscultation: clear to auscultation bilaterally, no rales, no rhonchi and no wheezes Cardio Rate: regular rate Rhythm: regular rhythm Heart Sounds: S1 normal, S2 normal and no murmurs Pulses: radial pulses present bilaterally GI Inspection: normal to inspection Palpation: soft Skin General skin exam: no rashes or lesions noted Neuro General: patient alert, patient awake and patient oriented x3 Extrem General: no clubbing, cyanosis or edema Psych Mental Status: mental status grossly normal Affect: normal affect Attitude: cooperative Most Recent VS/Results Last Vital Signs Temp 36.9 C 06/23/21 07:56 Pulse 68 06/23/21 08:55 Resp 20 06/23/21 09:00 BP 107/56 L 06/23/21 08:55 Pulse Ox 91 L 06/23/21 09:00 Laboratory Results - last 24 hr 06/22/21 06/22/21 06/22/21 19:50 19:50 19:50 WBC 14.42 H RBC 4.04 Hgb 14.0 Hct 42.5 MCV 105.2 H MCH 34.7 H MCHC 32.9 RDW 15.1 H Plt Count 202 MPV 10.6 Immature Gran % 0.3 Neutrophils % 89.3 Lymphocytes % 3.1 Monocytes % 7.1 Eosinophils % 0.0 Basophils % 0.2 Nucleated RBC % 0 Absolute Neutrophils 12.88 H Absolute Lymphocytes 0.45 L Absolute Monocytes 1.02 H Absolute Eosinophils 0.00 Absolute Basophils 0.03 RBC Morphology See Below Macrocytosis 3+ PT INR APTT ABG Sample Site ABG pH ABG pCO2 ABG pO2 ABG HCO3 ABG Total CO2 ABG O2 Saturation ABG Base Excess VBG Lactate Oxygen Liter Flow Sodium 145 Potassium 2.4 L* Chloride 102 Carbon Dioxide 36.9 H Anion Gap 6.1 BUN 8 Creatinine 1.0 Estimated GFR/1.73 m2 54.50 Glucose 88 Calcium 7.9 L Magnesium 1.4 L Total Bilirubin 0.7 AST 86 H ALT 37 Alkaline Phosphatase 185 H Ammonia Creatine Kinase 416 H Troponin I < 0.05 Total Protein 7.3 Albumin 3.1 L Lipase 21 Procalcitonin TSH 1.11 Urine Color Urine Clarity Urine pH Ur Specific [place] Urine Protein Urine Ketones Urine Blood Urine Nitrite Urine Bilirubin Urine Urobilinogen Ur Leukocyte Esterase Urine RBC Urine WBC Ur Epithelial Cells Urine Crystals Urine Bacteria Urine Casts Urine Mucus Ur Culture Indicated? Urine Glucose Salicylates Urine Opiates Screen Urine Methadone Screen Acetaminophen Ur Barbiturates Screen Ur Tricyclics Screen Ur Amphetamines Screen U Benzodiazepines Scrn Urine Cocaine Screen Ur THC Screen Ethyl Alcohol < 3.0 COVID-19 Source SARS-CoV-2 (PCR) Patient ABO/Rh Antibody Screen 06/22/21 06/22/21 06/22/21 19:50 20:04 20:17 WBC RBC Hgb Hct MCV MCH MCHC RDW Plt Count MPV Immature Gran % Neutrophils % Lymphocytes % Monocytes % Eosinophils % Basophils % Nucleated RBC % Absolute Neutrophils Absolute Lymphocytes Absolute Monocytes Absolute Eosinophils Absolute Basophils RBC Morphology Macrocytosis PT INR APTT ABG Sample Site Right Radial ABG pH 7.54 H ABG pCO2 41 ABG pO2 76 L ABG HCO3 35 H ABG Total CO2 Not Applicable ABG O2 Saturation Not Applicable ABG Base Excess 13 H VBG Lactate 4.2 H* Oxygen Liter Flow 4 Sodium Potassium Chloride Carbon Dioxide Anion Gap BUN Creatinine Estimated GFR/1.73 m2 Glucose Calcium Magnesium Total Bilirubin AST ALT Alkaline Phosphatase Ammonia Creatine Kinase Troponin I Total Protein Albumin Lipase Procalcitonin TSH Urine Color Urine Clarity Urine pH Ur Specific [place] Urine Protein Urine Ketones Urine Blood Urine Nitrite Urine Bilirubin Urine Urobilinogen Ur Leukocyte Esterase Urine RBC Urine WBC Ur Epithelial Cells Urine Crystals Urine Bacteria Urine Casts Urine Mucus Ur Culture Indicated? Urine Glucose Salicylates Urine Opiates Screen Urine Methadone Screen Acetaminophen Ur Barbiturates Screen Ur Tricyclics Screen Ur Amphetamines Screen U Benzodiazepines Scrn Urine Cocaine Screen Ur THC Screen Ethyl Alcohol COVID-19 Source Nasal/Nares SARS-CoV-2 (PCR) Negative Patient ABO/Rh Antibody Screen 06/22/21 06/22/21 06/22/21 20:17 20:17 20:17 WBC RBC Hgb Hct MCV MCH MCHC RDW Plt Count MPV Immature Gran % Neutrophils % Lymphocytes % Monocytes % Eosinophils % Basophils % Nucleated RBC % Absolute Neutrophils Absolute Lymphocytes Absolute Monocytes Absolute Eosinophils Absolute Basophils RBC Morphology Macrocytosis PT 13.4 H INR 1.3 H APTT 23.1 ABG Sample Site ABG pH ABG pCO2 ABG pO2 ABG HCO3 ABG Total CO2 ABG O2 Saturation ABG Base Excess VBG Lactate Oxygen Liter Flow Sodium Potassium Chloride Carbon Dioxide Anion Gap BUN Creatinine Estimated GFR/1.73 m2 Glucose Calcium Magnesium Total Bilirubin AST ALT Alkaline Phosphatase Ammonia 33 H Creatine Kinase Troponin I Total Protein Albumin Lipase Procalcitonin TSH Urine Color Urine Clarity Urine pH Ur Specific [place] Urine Protein Urine Ketones Urine Blood Urine Nitrite Urine Bilirubin Urine Urobilinogen Ur Leukocyte Esterase Urine RBC Urine WBC Ur Epithelial Cells Urine Crystals Urine Bacteria Urine Casts Urine Mucus Ur Culture Indicated? Urine Glucose Salicylates Urine Opiates Screen Urine Methadone Screen Acetaminophen Ur Barbiturates Screen Ur Tricyclics Screen Ur Amphetamines Screen U Benzodiazepines Scrn Urine Cocaine Screen Ur THC Screen Ethyl Alcohol COVID-19 Source SARS-CoV-2 (PCR) Patient ABO/Rh Antibody Screen 06/22/21 06/22/21 06/22/21 20:17 20:17 20:17 WBC RBC Hgb Hct MCV MCH MCHC RDW Plt Count MPV Immature Gran % Neutrophils % Lymphocytes % Monocytes % Eosinophils % Basophils % Nucleated RBC % Absolute Neutrophils Absolute Lymphocytes Absolute Monocytes Absolute Eosinophils Absolute Basophils RBC Morphology Macrocytosis PT INR APTT ABG Sample Site ABG pH ABG pCO2 ABG pO2 ABG HCO3 ABG Total CO2 ABG O2 Saturation ABG Base Excess VBG Lactate Oxygen Liter Flow Sodium Potassium Chloride Carbon Dioxide Anion Gap BUN Creatinine Estimated GFR/1.73 m2 Glucose Calcium Magnesium Total Bilirubin AST ALT Alkaline Phosphatase Ammonia Creatine Kinase Troponin I Total Protein Albumin Lipase Procalcitonin < 0.1 TSH Urine Color Urine Clarity Urine pH Ur Specific [place] Urine Protein Urine Ketones Urine Blood Urine Nitrite Urine Bilirubin Urine Urobilinogen Ur Leukocyte Esterase Urine RBC Urine WBC Ur Epithelial Cells Urine Crystals Urine Bacteria Urine Casts Urine Mucus Ur Culture Indicated? Urine Glucose Salicylates < 2.8 Urine Opiates Screen Urine Methadone Screen Acetaminophen < 2 Ur Barbiturates Screen Ur Tricyclics Screen Ur Amphetamines Screen U Benzodiazepines Scrn Urine Cocaine Screen Ur THC Screen Ethyl Alcohol COVID-19 Source SARS-CoV-2 (PCR) Patient ABO/Rh O Positive Antibody Screen NEGATIVE 06/22/21 06/22/21 06/22/21 20:32 20:32 23:00 WBC RBC Hgb Hct MCV MCH MCHC RDW Plt Count MPV Immature Gran % Neutrophils % Lymphocytes % Monocytes % Eosinophils % Basophils % Nucleated RBC % Absolute Neutrophils Absolute Lymphocytes Absolute Monocytes Absolute Eosinophils Absolute Basophils RBC Morphology Macrocytosis PT INR APTT ABG Sample Site ABG pH ABG pCO2 ABG pO2 ABG HCO3 ABG Total CO2 ABG O2 Saturation ABG Base Excess VBG Lactate Oxygen Liter Flow Sodium Potassium Chloride Carbon Dioxide Anion Gap BUN Creatinine Estimated GFR/1.73 m2 Glucose Calcium Magnesium Total Bilirubin AST ALT Alkaline Phosphatase Ammonia Creatine Kinase Troponin I 0.07 H Total Protein Albumin Lipase Procalcitonin TSH Urine Color Yellow Urine Clarity Cloudy Urine pH 6.0 Ur Specific [place] 1.025 Urine Protein Negative Urine Ketones Negative Urine Blood Small H Urine Nitrite Positive H Urine Bilirubin Negative Urine Urobilinogen 0.2 Ur Leukocyte Esterase Trace Urine RBC 3-5 H Urine WBC 5-10 Ur Epithelial Cells Few Urine Crystals Negative Urine Bacteria Many Urine Casts Negative Urine Mucus Negative Ur Culture Indicated? Yes Urine Glucose Negative Salicylates Urine Opiates Screen Negative Urine Methadone Screen Negative Acetaminophen Ur Barbiturates Screen Negative Ur Tricyclics Screen Negative Ur Amphetamines Screen Negative U Benzodiazepines Scrn Positive A Urine Cocaine Screen Negative Ur THC Screen Negative Ethyl Alcohol COVID-19 Source SARS-CoV-2 (PCR) Patient ABO/Rh Antibody Screen 06/23/21 06/23/21 06/23/21 01:53 06:17 07:42 WBC RBC Hgb Hct MCV MCH MCHC RDW Plt Count MPV Immature Gran % Neutrophils % Lymphocytes % Monocytes % Eosinophils % Basophils % Nucleated RBC % Absolute Neutrophils Absolute Lymphocytes Absolute Monocytes Absolute Eosinophils Absolute Basophils RBC Morphology Macrocytosis PT INR APTT ABG Sample Site ABG pH ABG pCO2 ABG pO2 ABG HCO3 ABG Total CO2 ABG O2 Saturation ABG Base Excess VBG Lactate Oxygen Liter Flow Sodium 142 143 Potassium 2.4 L* 2.0 L* Chloride 103 104 Carbon Dioxide 33.8 H 32.8 H Anion Gap 5.2 6.2 BUN 6 L 6 L Creatinine 0.9 0.9 Estimated GFR/1.73 m2 >= 60.00 >= 60.00 Glucose 77 106 Calcium 7.8 L 7.2 L Magnesium 1.5 L Total Bilirubin AST ALT Alkaline Phosphatase Ammonia Creatine Kinase Troponin I 0.06 Total Protein Albumin Lipase Procalcitonin TSH Urine Color Urine Clarity Urine pH Ur Specific [place] Urine Protein Urine Ketones Urine Blood Urine Nitrite Urine Bilirubin Urine Urobilinogen Ur Leukocyte Esterase Urine RBC Urine WBC Ur Epithelial Cells Urine Crystals Urine Bacteria Urine Casts Urine Mucus Ur Culture Indicated? Urine Glucose Salicylates Urine Opiates Screen Urine Methadone Screen Acetaminophen Ur Barbiturates Screen Ur Tricyclics Screen Ur Amphetamines Screen U Benzodiazepines Scrn Urine Cocaine Screen Ur THC Screen Ethyl Alcohol COVID-19 Source SARS-CoV-2 (PCR) Patient ABO/Rh Antibody Screen 06/23/21 06/23/21 07:42 07:42 WBC 9.41 D RBC 3.32 L Hgb 11.7 D Hct 34.1 L MCV 102.7 H MCH 35.2 H MCHC 34.3 RDW 15.0 H Plt Count 148 MPV 10.6 Immature Gran % 0.3 Neutrophils % 76.0 Lymphocytes % 12.2 Monocytes % 10.9 Eosinophils % 0.3 Basophils % 0.3 Nucleated RBC % 0 Absolute Neutrophils 7.15 H Absolute Lymphocytes 1.15 L Absolute Monocytes 1.03 H Absolute Eosinophils 0.03 Absolute Basophils 0.03 RBC Morphology Macrocytosis PT INR APTT ABG Sample Site ABG pH ABG pCO2 ABG pO2 ABG HCO3 ABG Total CO2 ABG O2 Saturation ABG Base Excess VBG Lactate 1.6 H Oxygen Liter Flow Sodium Potassium Chloride Carbon Dioxide Anion Gap BUN Creatinine Estimated GFR/1.73 m2 Glucose Calcium Magnesium Total Bilirubin AST ALT Alkaline Phosphatase [place]monia Creatine Kinase Troponin I Total Protein Albumin Lipase Procalcitonin TSH Urine Color Urine Clarity Urine pH Ur Specific [place] Urine Protein Urine Ketones Urine Blood Urine Nitrite Urine Bilirubin Urine Urobilinogen Ur Leukocyte Esterase Urine RBC Urine WBC Ur Epithelial Cells Urine Crystals Urine Bacteria Urine Casts Urine Mucus Ur Culture Indicated? Urine Glucose Salicylates Urine Opiates Screen Urine Methadone Screen Acetaminophen Ur Barbiturates Screen Ur Tricyclics Screen Ur Amphetamines Screen U Benzodiazepines Scrn Urine Cocaine Screen Ur THC Screen Ethyl Alcohol COVID-19 Source SARS-CoV-2 (PCR) Patient ABO/Rh Antibody Screen Review of Systems All systems reviewed & are unremarkable except as noted in HPI and below Time spent with patient Time spent in Critical Care: 40 Time spent in Critical care included: Coordination of care, Chart review, Documenting critically ill care, Time at immediate bedside and Discussing critically ill care with other medical staff
[2021-06-23] MEDS: POTASSIUM CHLORIDE 10 MEQ/100 ML BAG 100 MEQ IVPB (09:25)
[2021-06-23] MEDS: Potassium Chloride 20 MEQ TABCR 40 MEQ PO ×3 (09:37→21:36)
[2021-06-23] MEDS: Hydrocortisone SOD SUC. 100 MG VIAL 50 MG IV ×2 (09:47→16:29)
--- NOTE | 2021-06-23 11:51 | NUR.NOTE ---
Patient started on 2 liters of 02 via nasal cannula. When patient sleeps her 02 sat drops into mid 80's. Nursing Note:
[2021-06-23] MEDS: cefTRIAXone 1 GM/50 ML BAG IVPB (11:52)
--- NOTE | 2021-06-23 12:10 | NUR.NOTE ---
RN facilitates a telephone call to patient's son. Patient speaks with her son. Nursing Note:
--- NOTE | 2021-06-23 13:18 | W.PM.PROGNOT ---
Date of Service Date of service: 06/23/21 Time of Service: 13:19 Subjective Subjective Patient reports: no new complaints and afebrile; denies nausea, vomiting and shortness of breath Interval history since last seen: She states she has no appetite. She asks what happened to me. She tells me she doesn't take insulin, but the states she isn't sure if she does or not. Objective Last Vital Signs Temp 36.4 C L 06/23/21 12:13 Pulse 68 06/23/21 12:13 Resp 17 06/23/21 12:13 BP 121/60 06/23/21 12:13 Pulse Ox 97 06/23/21 12:13 Laboratory Results - last 24 hr 06/22/21 06/22/21 06/22/21 19:50 19:50 19:50 WBC 14.42 H RBC 4.04 Hgb 14.0 Hct 42.5 MCV 105.2 H MCH 34.7 H MCHC 32.9 RDW 15.1 H Plt Count 202 MPV 10.6 Immature Gran % 0.3 Neutrophils % 89.3 Lymphocytes % 3.1 Monocytes % 7.1 Eosinophils % 0.0 Basophils % 0.2 Nucleated RBC % 0 Absolute Neutrophils 12.88 H Absolute Lymphocytes 0.45 L Absolute Monocytes 1.02 H Absolute Eosinophils 0.00 Absolute Basophils 0.03 RBC Morphology See Below Macrocytosis 3+ PT INR APTT ABG Sample Site ABG pH ABG pCO2 ABG pO2 ABG HCO3 ABG Total CO2 ABG O2 Saturation ABG Base Excess VBG Lactate Oxygen Liter Flow Sodium 145 Potassium 2.4 L* Chloride 102 Carbon Dioxide 36.9 H Anion Gap 6.1 BUN 8 Creatinine 1.0 Estimated GFR/1.73 m2 54.50 Glucose 88 Calcium 7.9 L Magnesium 1.4 L Total Bilirubin 0.7 AST 86 H ALT 37 Alkaline Phosphatase 185 H Ammonia Creatine Kinase 416 H Troponin I < 0.05 Total Protein 7.3 Albumin 3.1 L Lipase 21 Procalcitonin TSH 1.11 Urine Color Urine Clarity Urine pH Ur Specific [place] Urine Protein Urine Ketones Urine Blood Urine Nitrite Urine Bilirubin Urine Urobilinogen Ur Leukocyte Esterase Urine RBC Urine WBC Ur Epithelial Cells Urine Crystals Urine Bacteria Urine Casts Urine Mucus Ur Culture Indicated? Urine Glucose Salicylates Urine Opiates Screen Urine Methadone Screen Acetaminophen Ur Barbiturates Screen Ur Tricyclics Screen Ur Amphetamines Screen U Benzodiazepines Scrn Urine Cocaine Screen Ur THC Screen Ethyl Alcohol < 3.0 COVID-19 Source SARS-CoV-2 (PCR) Patient ABO/Rh Antibody Screen 06/22/21 06/22/21 06/22/21 19:50 20:04 20:17 WBC RBC Hgb Hct MCV MCH MCHC RDW Plt Count MPV Immature Gran % Neutrophils % Lymphocytes % Monocytes % Eosinophils % Basophils % Nucleated RBC % Absolute Neutrophils Absolute Lymphocytes Absolute Monocytes Absolute Eosinophils Absolute Basophils RBC Morphology Macrocytosis PT INR APTT ABG Sample Site Right Radial ABG pH 7.54 H ABG pCO2 41 ABG pO2 76 L ABG HCO3 35 H ABG Total CO2 Not Applicable ABG O2 Saturation Not Applicable ABG Base Excess 13 H VBG Lactate 4.2 H* Oxygen Liter Flow 4 Sodium Potassium Chloride Carbon Dioxide Anion Gap BUN Creatinine Estimated GFR/1.73 m2 Glucose Calcium Magnesium Total Bilirubin AST ALT Alkaline Phosphatase Ammonia Creatine Kinase Troponin I Total Protein Albumin Lipase Procalcitonin TSH Urine Color Urine Clarity Urine pH Ur Specific [place] Urine Protein Urine Ketones Urine Blood Urine Nitrite Urine Bilirubin Urine Urobilinogen Ur Leukocyte Esterase Urine RBC Urine WBC Ur Epithelial Cells Urine Crystals Urine Bacteria Urine Casts Urine Mucus Ur Culture Indicated? Urine Glucose Salicylates Urine Opiates Screen Urine Methadone Screen Acetaminophen Ur Barbiturates Screen Ur Tricyclics Screen Ur Amphetamines Screen U Benzodiazepines Scrn Urine Cocaine Screen Ur THC Screen Ethyl Alcohol COVID-19 Source Nasal/Nares SARS-CoV-2 (PCR) Negative Patient ABO/Rh Antibody Screen 06/22/21 06/22/21 06/22/21 20:17 20:17 20:17 WBC RBC Hgb Hct MCV MCH MCHC RDW Plt Count MPV Immature Gran % Neutrophils % Lymphocytes % Monocytes % Eosinophils % Basophils % Nucleated RBC % Absolute Neutrophils Absolute Lymphocytes Absolute Monocytes Absolute Eosinophils Absolute Basophils RBC Morphology Macrocytosis PT 13.4 H INR 1.3 H APTT 23.1 ABG Sample Site ABG pH ABG pCO2 ABG pO2 ABG HCO3 ABG Total CO2 ABG O2 Saturation ABG Base Excess VBG Lactate Oxygen Liter Flow Sodium Potassium Chloride Carbon Dioxide Anion Gap BUN Creatinine Estimated GFR/1.73 m2 Glucose Calcium Magnesium Total Bilirubin AST ALT Alkaline Phosphatase Ammonia 33 H Creatine Kinase Troponin I Total Protein Albumin Lipase Procalcitonin TSH Urine Color Urine Clarity Urine pH Ur Specific [place] Urine Protein Urine Ketones Urine Blood Urine Nitrite Urine Bilirubin Urine Urobilinogen Ur Leukocyte Esterase Urine RBC Urine WBC Ur Epithelial Cells Urine Crystals Urine Bacteria Urine Casts Urine Mucus Ur Culture Indicated? Urine Glucose Salicylates Urine Opiates Screen Urine Methadone Screen Acetaminophen Ur Barbiturates Screen Ur Tricyclics Screen Ur Amphetamines Screen U Benzodiazepines Scrn Urine Cocaine Screen Ur THC Screen Ethyl Alcohol COVID-19 Source SARS-CoV-2 (PCR) Patient ABO/Rh Antibody Screen 06/22/21 06/22/21 06/22/21 20:17 20:17 20:17 WBC RBC Hgb Hct MCV MCH MCHC RDW Plt Count MPV Immature Gran % Neutrophils % Lymphocytes % Monocytes % Eosinophils % Basophils % Nucleated RBC % Absolute Neutrophils Absolute Lymphocytes Absolute Monocytes Absolute Eosinophils Absolute Basophils RBC Morphology Macrocytosis PT INR APTT ABG Sample Site ABG pH ABG pCO2 ABG pO2 ABG HCO3 ABG Total CO2 ABG O2 Saturation ABG Base Excess VBG Lactate Oxygen Liter Flow Sodium Potassium Chloride Carbon Dioxide Anion Gap BUN Creatinine Estimated GFR/1.73 m2 Glucose Calcium Magnesium Total Bilirubin AST ALT Alkaline Phosphatase Ammonia Creatine Kinase Troponin I Total Protein Albumin Lipase Procalcitonin < 0.1 TSH Urine Color Urine Clarity Urine pH Ur Specific [place] Urine Protein Urine Ketones Urine Blood Urine Nitrite Urine Bilirubin Urine Urobilinogen Ur Leukocyte Esterase Urine RBC Urine WBC Ur Epithelial Cells Urine Crystals Urine Bacteria Urine Casts Urine Mucus Ur Culture Indicated? Urine Glucose Salicylates < 2.8 Urine Opiates Screen Urine Methadone Screen Acetaminophen < 2 Ur Barbiturates Screen Ur Tricyclics Screen Ur Amphetamines Screen U Benzodiazepines Scrn Urine Cocaine Screen Ur THC Screen Ethyl Alcohol COVID-19 Source SARS-CoV-2 (PCR) Patient ABO/Rh O Positive Antibody Screen NEGATIVE 06/22/21 06/22/21 06/22/21 20:32 20:32 23:00 WBC RBC Hgb Hct MCV MCH MCHC RDW Plt Count MPV Immature Gran % Neutrophils % Lymphocytes % Monocytes % Eosinophils % Basophils % Nucleated RBC % Absolute Neutrophils Absolute Lymphocytes Absolute Monocytes Absolute Eosinophils Absolute Basophils RBC Morphology Macrocytosis PT INR APTT ABG Sample Site ABG pH ABG pCO2 ABG pO2 ABG HCO3 ABG Total CO2 ABG O2 Saturation ABG Base Excess VBG Lactate Oxygen Liter Flow Sodium Potassium Chloride Carbon Dioxide Anion Gap BUN Creatinine Estimated GFR/1.73 m2 Glucose Calcium Magnesium Total Bilirubin AST ALT Alkaline Phosphatase Ammonia Creatine Kinase Troponin I 0.07 H Total Protein Albumin Lipase Procalcitonin TSH Urine Color Yellow Urine Clarity Cloudy Urine pH 6.0 Ur Specific [place] 1.025 Urine Protein Negative Urine Ketones Negative Urine Blood Small H Urine Nitrite Positive H Urine Bilirubin Negative Urine Urobilinogen 0.2 Ur Leukocyte Esterase Trace Urine RBC 3-5 H Urine WBC 5-10 Ur Epithelial Cells Few Urine Crystals Negative Urine Bacteria Many Urine Casts Negative Urine Mucus Negative Ur Culture Indicated? Yes Urine Glucose Negative Salicylates Urine Opiates Screen Negative Urine Methadone Screen Negative Acetaminophen Ur Barbiturates Screen Negative Ur Tricyclics Screen Negative Ur Amphetamines Screen Negative U Benzodiazepines Scrn Positive A Urine Cocaine Screen Negative Ur THC Screen Negative Ethyl Alcohol COVID-19 Source SARS-CoV-2 (PCR) Patient ABO/Rh Antibody Screen 06/23/21 06/23/21 06/23/21 01:53 06:17 07:42 WBC RBC Hgb Hct MCV MCH MCHC RDW Plt Count MPV Immature Gran % Neutrophils % Lymphocytes % Monocytes % Eosinophils % Basophils % Nucleated RBC % Absolute Neutrophils Absolute Lymphocytes Absolute Monocytes Absolute Eosinophils Absolute Basophils RBC Morphology Macrocytosis PT INR APTT ABG Sample Site ABG pH ABG pCO2 ABG pO2 ABG HCO3 ABG Total CO2 ABG O2 Saturation ABG Base Excess VBG Lactate Oxygen Liter Flow Sodium 142 143 Potassium 2.4 L* 2.0 L* Chloride 103 104 Carbon Dioxide 33.8 H 32.8 H Anion Gap 5.2 6.2 BUN 6 L 6 L Creatinine 0.9 0.9 Estimated GFR/1.73 m2 >= 60.00 >= 60.00 Glucose 77 106 Calcium 7.8 L 7.2 L Magnesium 1.5 L Total Bilirubin AST ALT Alkaline Phosphatase Ammonia Creatine Kinase Troponin I 0.06 Total Protein Albumin Lipase Procalcitonin TSH Urine Color Urine Clarity Urine pH Ur Specific [place] Urine Protein Urine Ketones Urine Blood Urine Nitrite Urine Bilirubin Urine Urobilinogen Ur Leukocyte Esterase Urine RBC Urine WBC Ur Epithelial Cells Urine Crystals Urine Bacteria Urine Casts Urine Mucus Ur Culture Indicated? Urine Glucose Salicylates Urine Opiates Screen Urine Methadone Screen Acetaminophen Ur Barbiturates Screen Ur Tricyclics Screen Ur Amphetamines Screen U Benzodiazepines Scrn Urine Cocaine Screen Ur THC Screen Ethyl Alcohol COVID-19 Source SARS-CoV-2 (PCR) Patient ABO/Rh Antibody Screen 06/23/21 06/23/21 07:42 07:42 WBC 9.41 D RBC 3.32 L Hgb 11.7 D Hct 34.1 L MCV 102.7 H MCH 35.2 H MCHC 34.3 RDW 15.0 H Plt Count 148 MPV 10.6 Immature Gran % 0.3 Neutrophils % 76.0 Lymphocytes % 12.2 Monocytes % 10.9 Eosinophils % 0.3 Basophils % 0.3 Nucleated RBC % 0 Absolute Neutrophils 7.15 H Absolute Lymphocytes 1.15 L Absolute Monocytes 1.03 H Absolute Eosinophils 0.03 Absolute Basophils 0.03 RBC Morphology Macrocytosis PT INR APTT ABG Sample Site ABG pH ABG pCO2 ABG pO2 ABG HCO3 ABG Total CO2 ABG O2 Saturation ABG Base Excess VBG Lactate 1.6 H Oxygen Liter Flow Sodium Potassium Chloride Carbon Dioxide Anion Gap BUN Creatinine Estimated GFR/1.73 m2 Glucose Calcium Magnesium Total Bilirubin AST ALT Alkaline Phosphatase Ammonia Creatine Kinase Troponin I Total Protein Albumin Lipase Procalcitonin TSH Urine Color Urine Clarity Urine pH Ur Specific [place] Urine Protein Urine Ketones Urine Blood Urine Nitrite Urine Bilirubin Urine Urobilinogen Ur Leukocyte Esterase Urine RBC Urine WBC Ur Epithelial Cells Urine Crystals Urine Bacteria Urine Casts Urine Mucus Ur Culture Indicated? Urine Glucose Salicylates Urine Opiates Screen Urine Methadone Screen Acetaminophen Ur Barbiturates Screen Ur Tricyclics Screen Ur Amphetamines Screen U Benzodiazepines Scrn Urine Cocaine Screen Ur THC Screen Ethyl Alcohol COVID-19 Source SARS-CoV-2 (PCR) Patient ABO/Rh Antibody Screen
[2021-06-23] MEDS: Insulin Aspart 300 UNITS/3 ML PEN SC ×3 (20:33→23:01)
[2021-06-23] MEDS: Insulin Glargine 300 UNITS/3 ML PEN 10 UNITS SC (20:34)
[2021-06-23 22:40] LABS: Chloride 104 mmol/L (98-107); Sodium 141 mmol/L (136-145)
[2021-06-23 22:45] LABS: Potassium 2.7 mmol/L (3.5-5.1)
[2021-06-23 22:46] LABS: Anion Gap 6.4 mmol/L (3-11); CO2 30.6 mmol/L (21.0-32.0)
[2021-06-24] VITALS (83 sets, daily range): BP systolic 100–133; BP diastolic 56–81; PULSE 60–78; RESP 12–26; TEMP 36.5–37; O2SAT 75–96
[2021-06-24] MEDS: POTASSIUM CHLORIDE 20 MEQ/100 ML BAG 50 MEQ IVPB ×2 (02:10→05:04)
[2021-06-24] MEDS: Enoxaparin 40 MG/0.4 ML SYR SC (03:49)
[2021-06-24 06:59] LABS: Anion Gap 3.4 mmol/L (3-11); BUN 9 mg/dL (7-18); CO2 32.6 mmol/L (21.0-32.0); Calcium 7.8 mg/dL (8.5-10.1); Chloride 108 mmol/L (98-107); Glucose 137 mg/dL (74-106); Magnesium 2.5 mg/dL (1.8-2.4); Potassium 3.2 mmol/L (3.5-5.1); Sodium 144 mmol/L (136-145)
[2021-06-24] MEDS: Potassium Chloride 20 MEQ TABCR 40 MEQ PO ×3 (08:45→20:17)
[2021-06-24] MEDS: VANCOMYCIN/WATER (PEG) 1.5 GM/300 ML BAG IV (08:46)
[2021-06-24 08:52] LABS: Lactate 0.9 mmol/L (0.6-1.4)
[2021-06-24 09:03] LABS: C-Reactive Protein 2.02 mg/dL (0.0-0.3)
[2021-06-24] MEDS: cefTRIAXone 1 GM/50 ML BAG IVPB (10:05)
--- NOTE | 2021-06-24 11:44 | PGE_ITS ---
Date of Service Date of service: 06/24/21 Time of Service: 11:44 Assessment and Plan Assessment and plan (1) AMS (altered mental status): Status: Acute Assessment and plan: her altered mental status seems to be resolving and probably was d/t hypoglycemia from her insulin. She should be considered for an alternative agent to control her DM. Her last A1C was 7.6% in March 2021. I suspect that she runs a lot of highs and lows at home. Her CT of her head showed no acute abnormalities but if she is having frequent hypoglycemia spells contributing to chronic cognitive impairment. She needs a CGM to monitor her glucose and given her low glucose this morning w/ Lantus 10 units, I suspect that she ought to be on an alternative agent than insulin. Her hyperglycemia yesterday was d/t stress dosing hydrocortisone which has been stopped. No longer needs ICU care or monitoring. will transfer to med/surg floor Qualifiers: Altered mental status type: delirium Qualified Code(s): R41.0 - Disorientation, unspecified (2) Hypoglycemia: Status: Acute Assessment and plan: resolved (3) Hypomagnesemia: Status: Acute Assessment and plan: resolved w/ repletion. monitor. keep on oral replacements. (4) Hypokalemia: Status: Acute Assessment and plan: improving. 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 improving on Rocephin (7) Positive blood culture: Status: Acute Assessment and plan: gram positive cocci in clusters on 1/4 blood cultures. probably contaminant. will repeat cultures. cover w/ Vancomycin pending repeat blood cultures. No identifiable source Subjective Subjective Interval history since last seen: Patient denies any acute complaints. She is still a little confused but is becoming more oriented and appropriate in her answers. She knows she is in [facility] and that this is located in [facility] (although at first she said [place] but then corrected herself). She got the month correct and was off by one day on the day of the month. She recalls how she got to the hospital. she says that her son told her about not being able to reach her by phone and calling the police to perform a well check. She admits that she does not always take her insulin the same time of day. She says that either on the day of her being found down and unresponsive from hypoglycemia she believes that she took 30 units of Lantus but is unsure. She sometimes takes 35 units but does not take it the same time of day d/t sometimes oversleeping and not getting up in the morning. Exam Narrative Exam Narrative: elderly female sitting up in bed combing her hair alert and oriented to person/place/circumstances and time (month/day of month but missed the year, though it was 2019). HEENT; unremarkable Lungs: clear Heart: regular, no murmur Abdomen: obese, soft and nontender Extremities: couple of superficial abrasions on her lower legs; no deep wounds and no puruelent drainage; normal pedal pulses. Neuro: no focal CN deficits and normal ROM and strength; she is still a bit slow in coming up w/ correct answers Objective Last Vital Signs Temp 36.6 C 06/24/21 11:08 Pulse 64 06/24/21 11:08 Resp 18 06/24/21 10:54 BP 108/57 L 06/24/21 10:54 Pulse Ox 91 L 06/24/21 10:54 Laboratory Results - last 24 hr 06/23/21 06/24/21 06/24/21 22:25 06:30 08:38 VBG Lactate Sodium 141 144 Potassium 2.7 L* 3.2 L Chloride 104 108 H Carbon Dioxide 30.6 32.6 H Anion Gap 6.4 3.4 BUN 9 Creatinine 1.0 Estimated GFR/1.73 m2 54.50 Glucose 137 H Calcium 7.8 L Magnesium 2.5 H C-Reactive Protein 2.02 H 06/24/21 08:38 VBG Lactate 0.9 Sodium Potassium Chloride Carbon Dioxide Anion Gap BUN Creatinine Estimated GFR/1.73 m2 Glucose Calcium Magnesium C-Reactive Protein
[2021-06-24] MEDS: Insulin Aspart 300 UNITS/3 ML PEN SC ×4 (11:54→21:59)
--- NOTE | 2021-06-24 12:17 | PHA.REVIEW ---
Pharmacy Admission Review - Admission Clinical Review (Last Reviewed 06/22/21 @ 21:38 by JOHN Fry) Leukocytosis (Acute) Hypomagnesemia (Acute) Hypoglycemia (Acute) Hypokalemia (Acute) AMS (altered mental status) (Acute) Penicillins Allergy (Intermediate, Verified 03/21/21 15:02) rash Sulfa (Sulfonamide Antibiotics) Allergy (Unknown, Verified 03/21/21 15:02) ct scan dye Allergy (Unknown, Uncoded 03/21/21 15:02) Resuscitation Status Full Code Height 5 ft 5 in Weight 77.1 kg - Renal Dosing Renal Dosing: BUN 9 mg/dL (7-18) 06/24/21 06:30 Creatinine 1.0 mg/dL (0.55-1.02) 06/24/21 06:30 Medications needing adjustments: Reviewed - Anticoagulation Anticoagulation: Hgb 11.7 g/dL (11.2-15.7) D 06/23/21 07:42 Hct 34.1 % (36.0-46.0) L 06/23/21 07:42 Plt Count 148 10^3/uL (130-400) 06/23/21 07:42 INR 1.3 (0.9-1.1) H 06/22/21 20:17 Creatinine 1.0 mg/dL (0.55-1.02) 06/24/21 06:30 DVT Prophylaxis: Reviewed Medications: Enoxaparin - Opiate Usage Evaluate Pain Scale/Pains Meds: N/A - Relevant Labs Sodium 144 mmol/L (136-145) 06/24/21 06:30 Potassium 3.2 mmol/L (3.5-5.1) L 06/24/21 06:30 Chloride 108 mmol/L (98-107) H 06/24/21 06:30 Magnesium 2.5 mg/dL (1.8-2.4) H 06/24/21 06:30 C-Reactive Protein 2.02 mg/dL (0.0-0.3) H 06/24/21 08:38 Electrolytes, C-Reactive P, ESR: Reviewed (40 mew IV potassium infused early AM, TRANG K+ -- 40 MEQ TID) - DM Control DM Control: Glucose 137 mg/dL (74-106) H 06/24/21 06:30 Finger Stick Blood Glucose 236 Finger Stick Blood Glucose 236 Finger Stick Blood Glucose 137 Finger Stick Blood Glucose 137 Insulin Dosing: Reviewed (SS, carb coverage, 5 u glargine at HS) - Heart Failure/KS Heart Failure/KS: Troponin I 0.06 ng/mL (<0.06) 06/23/21 06:17 - BP Control BP Control: Blood Pressure [Right Arm] 121/69 Blood Pressure 108/57 Blood Pressure 100/59 Blood Pressure 130/80 Blood Pressure 125/74 Blood Pressure 127/70 Blood Pressure 121/69 If elevated: Reviewed - Qtc Review If Elevated: Reviewed (QTc 524 on admission) List meds needing interventions: orders ok - IV to PO Switch IV Medications: Reviewed - Home Meds Home Med List reviewed: Intervened Relevent Home Meds Not ordered & why?: confirmed med list per external rx record - Current meds Current Medication Order Review: Reviewed (vanco initiated today in addition to rocephin due to blood culture results) - Comments Comments/Follow Ups: lantus was decreased to 5 units given low BG result early AM -- anticipate oral agent(s) being initiated in place of basal insulin; carb coverage was added for better control while here
[2021-06-24 14:04] LABS: Potassium 3.2 mmol/L (3.5-5.1)
[2021-06-24 15:22] LABS: C Diff PCR Positive (Negative)
[2021-06-24] MEDS: metroNIDAZOLE 500 MG/100 ML BAG 100 MG IVPB (16:14)
[2021-06-24] MEDS: Lactobacillus Acidophilus CAP 1 CAP PO ×2 (16:15→20:17)
[2021-06-24] MEDS: Normal Saline 500 ML 100 ML IV (16:37)
--- NOTE | 2021-06-24 17:50 | NUR.NOTE ---
Nursing Note: received report from Christina in the ICU, pt transferred via wheelchair, no c/o pain, VSS.
[2021-06-24] MEDS: Insulin Glargine 300 UNITS/3 ML PEN 10 UNITS SC (22:01)
--- NOTE | 2021-06-24 22:34 | NUR.NOTE ---
Nursing Note: At 2150 Noticed pt has no IV access and no urinary britton catheter. Asked pt what happened to her IV access and urinary britton catheter, pt states,they fall out, and pointer to the trash can in the room. Found urinary britton catheter tubing with balloon intact, and gravity britton bag in trash can. Pt refused new IV access or urinary britton catheter in place. Pt states, I'm sick of them I don't need them I'm going home tomorrow. Pt also refused Vancomycin PO. Pt states, I don't want to take an antibiotic or other medications I don't need them. Pt continue combing her hair. Pt alert and oriented to person and time. MD notified by charge nurse. Leave IV and britton out for tonight per MD orders. Will continue to monitor pt.
[2021-06-25 07:10] LABS: HCT 34.8 % (36.0-46.0); HGB 11.6 g/dL (11.2-15.7); MCH 35.4 pg (27.0-33.0); MCHC 33.3 % (32.0-36.0); MCV 106.1 fL (80-95); MPV 10.2 fL (8.0-11.0); Platelet Count 142 10^3/uL (130-400); RBC 3.28 10^6/uL (3.93-5.22); RDW 15.4 % (11.7-14.6); RDW-SD 60.8 fL
[2021-06-25 07:26] LABS: Hemoglobin A1C 5.1 % (<5.7)
[2021-06-25 07:35] LABS: Anion Gap 6.3 mmol/L (3-11); BUN 14 mg/dL (7-18); CO2 30.7 mmol/L (21.0-32.0); CREATININE 1.1 mg/dL (0.55-1.02); Chloride 108 mmol/L (98-107); Estimated GFR 48.82 (mL/min/1.73m2); Glucose 207 mg/dL (74-106); Potassium 3.6 mmol/L (3.5-5.1); Sodium 145 mmol/L (136-145)
--- NOTE | 2021-06-25 08:36 | W.PM.PROGNOT ---
Date of Service Date of service: 06/25/21 Time of Service: 08:36 Assessment and Plan Assessment and plan (1) Clostridium difficile diarrhea: Status: Acute Assessment and plan: patient w/ C. difficile diarrhea, small to moderate amounts of liquid stool. Patient was put on iv metronidazole and oral vancomycin yesterday afternoon but now that she has pullled her iv out and does not want them replaced I think that simplifying treatment w/ oral vancomycin would be best. I explained to her that I would like her to stay until the diarrhea is under control given that she was found down at home d/t hypoglycemia and dehydration and is at risk for repeated episodes given her diarrhea and hx of poor oral intake and nutrition. She is willing to stay at least one more day. I have put her on lactobacillus probiotics. I will add metamucil to thicken her stools. I explained to her that she will need to continue the oral vancomycin upon discharge. Given her hx of alcohol abuse it is best not to treat her w/ Flagyl d/t the anabuse effects. (2) Alcohol abuse: Status: Chronic Assessment and plan: patient denies any hx of seizure or delirium tremens from alcohol withdrawal. Nevertheless, we will put her on CIWA monitoring and initiate appropriate treatment for alcohol withdrawal. (3) UTI (urinary tract infection): Status: Acute Assessment and plan: Blood culture was negative for E. coli but her urine was positive for E. coli which was espinal-sensitive. She had two days of Rocephin. I have ordered fosfomycin 3 gm x one dose. This should be sufficient to treat a simple UTI. Qualifiers: Hematuria presence: without hematuria Urinary tract infection type: acute cystitis Qualified Code(s): N30.00 - Acute cystitis without hematuria (4) Positive blood culture: Status: Acute Assessment and plan: 08/15 bottles (initial two sets of blood cultures from 06/22 was positive for Staph non-aureus species. I suspect this is d/t skin contaminant. Repeat cultures were taken on 06/24 and are pending. If these are no growth then we will consider the first set as a contaminant. 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 She is not reliable in her dosing of her insulin nor in her timing of her insulin. Given that she presented in hypoglcyemia and unresponsive w/ glucose in the ' I think it best that she be converted to an oral agent. I will put her on metformin. We will still monitor and treat her w/ bolus insulin at meals but upon discharge she should be treated w/ metformin and if an additional agent is needed, consider either an GLP1 agonist or an SGLT2 inhibitor. (6) Hypoglycemia: Status: Acute Assessment and plan: as above (7) Hypomagnesemia: Status: Acute Assessment and plan: corrected w/ iv magnesium boluses. Needs to go on oral magnesium supplements. will recheck in the a.m. (8) Hypokalemia: Status: Acute Assessment and plan: improved w/ iv and oral replacements. continue to monitor (9) Fatty liver: Status: Chronic Assessment and plan: fatty changes and some nodular contour on her CT of her abdomen suggests cirrhosis. She should have follow up as outpatient w/ Fibroscan evaluation for cirrhosis. I will get Fibrosure blood test and hepatitis and HIV screen. Patient needs to quit drinking alcohol and needs outpatient follow up counseling. Subjective Subjective Interval history since last seen: Patient became agitated last night and pulled out her iv's and her britton and insisted that she is going home today. I spoke w/ her in presence of her nurses and she is now agreeable to taking oral meds and remaining for one more day while we get her C. diff under control. She admits to drinking two bottles of vodka per week. She says that she is a binge drinker but has abstained for brief periods in the past w/out going through severe withdrawal. Her son informed the nurses that she drinks more than she admits. I will initiate CIWA protocol using the benzodiazepine protocol. As for her diabetes mellitus, her glycohemoglobin A1c is 5.1% which suggests that she has been having frequent hypoglycemia while on insulin. Her prior A1c in March was 7.6% and in August she was 8.5%. I think that she would benefit from either going on an oral agent such as metformin which would help w/ her fatty liver or going on an SGLT2 inhibitor. Since we do not carry any SGLT2 inhibitor, I can not get her started on this in house. I will try her on metformin w/ the concerns that she already has diarrhea from C. diff and there is potential of her metformin making things worse. However, it is not safe for her to go home on insulin w/ the frequent hypoglycemia and passing out at home. Exam Narrative Exam Narrative: Christina is lying in bed awake and alert, oriented to person/place and circumstances LUngs: clear Heart: RRR w/ soft systolic murmur; no rub or gallops Abdomen: obese, soft, nontender, no guarding Extremities: no edema Neuro: grossly normal, no focal motor or sensory deficits; cognitively alert and oriented Objective Last Vital Signs Temp 37 C 06/24/21 23:08 Pulse 68 06/24/21 23:08 Resp 18 06/24/21 23:08 BP 133/81 06/24/21 23:08 Pulse Ox 95 06/24/21 23:08 Laboratory Results - last 24 hr 06/24/21 06/24/21 06/24/21 08:38 08:38 13:30 WBC RBC Hgb Hct MCV MCH MCHC RDW Plt Count MPV VBG Lactate 0.9 Sodium Potassium Chloride Carbon Dioxide Anion Gap BUN Creatinine Estimated GFR/1.73 m2 Glucose Hemoglobin A1c Calcium C-Reactive Protein 2.02 H Stl C.difficile Tox PCR Positive A 06/24/21 06/25/21 06/25/21 13:45 07:00 07:00 WBC RBC Hgb Hct MCV MCH MCHC RDW Plt Count MPV VBG Lactate Sodium 145 Potassium 3.2 L 3.6 Chloride 108 H Carbon Dioxide 30.7 Anion Gap 6.3 BUN 14 Creatinine 1.1 H Estimated GFR/1.73 m2 48.82 Glucose 207 H Hemoglobin A1c 5.1 Calcium 8.0 L C-Reactive Protein Stl C.difficile Tox PCR 06/25/21 07:00 WBC 7.70 RBC 3.28 L Hgb 11.6 Hct 34.8 L MCV 106.1 H MCH 35.4 H MCHC 33.3 RDW 15.4 H Plt Count 142 MPV 10.2 VBG Lactate Sodium Potassium Chloride Carbon Dioxide Anion Gap BUN Creatinine Estimated GFR/1.73 m2 Glucose Hemoglobin A1c Calcium C-Reactive Protein Stl C.difficile Tox PCR PAWSS Have you Been Recently Intoxicated or Drunk Within the Last 30 days?: Yes Have you Ever Experienced Previous Episodes of Alcohol Withdrawal?: No Have you ever Experienced Delirium Tremens(DT)s?: No Have you ever undergone Alcohol Rehabilitation Treatment (i.e, inpt ot outpatient treatment programs)?: No Have you ever Experienced Blackouts?: No Have you ever Combined Alcohol with other Downers within the last 90 days?: No Have you ever Combined Alcohol with any other Substance of Abuse during the last 90 days?: No Positive Blood Alcohol level on Presentation? [PCS.BAL]: No Evidence of Increased Autonomic Activity (i.e. HR>120, tremor, sweating, agitation, nausea)?: Yes Result: 2
[2021-06-25] MEDS: Insulin Aspart 300 UNITS/3 ML PEN SC ×7 (08:44→22:16)
[2021-06-25] MEDS: Fosfomycin Tromethamine 3 GM PACKET PO (08:44)
[2021-06-25] MEDS: Lactobacillus Acidophilus CAP 1 CAP PO ×3 (08:45→22:16)
[2021-06-25] MEDS: Potassium Chloride 20 MEQ TABCR 40 MEQ PO ×3 (08:46→22:16)
[2021-06-25 08:56] VITALS: BP 169/66; PULSE 69; RESP 12; TEMP 36.6; O2SAT 94
[2021-06-25] MEDS: Folic Acid 1 MG TAB PO (09:39)
[2021-06-25] MEDS: Thiamine 100 MG TAB PO (09:39)
[2021-06-25] MEDS: Multivitamin TAB 1 TAB PO (09:40)
[2021-06-25] MEDS: Magnesium Gluconate 500 MG TAB PO (10:51)
[2021-06-25] MEDS: Psyllium PKT 1 EACH PO ×2 (10:51→22:16)
[2021-06-25 16:00] VITALS: BP 127/71; PULSE 57; RESP 15; TEMP 37; O2SAT 96
[2021-06-25] MEDS: metFORMIN C.R. 500 MG TABCR PO (16:49)
[2021-06-25] MEDS: Insulin Glargine 300 UNITS/3 ML PEN 15 UNITS SC (22:17)
[2021-06-25 23:31] VITALS: BP 117/72; PULSE 64; RESP 18; TEMP 36.5; O2SAT 96
[2021-06-26] MEDS: Enoxaparin 40 MG/0.4 ML SYR SC (04:32)
[2021-06-26] MEDS: Insulin Aspart 300 UNITS/3 ML PEN SC ×8 (07:41→21:47)
[2021-06-26 07:43] LABS: BUN 18 mg/dL (7-18); Calcium 7.9 mg/dL (8.5-10.1); Glucose 261 mg/dL (74-106); Potassium 4.8 mmol/L (3.5-5.1); Sodium 141 mmol/L (136-145)
[2021-06-26 07:44] LABS: Anion Gap 6.5 mmol/L (3-11); CO2 26.5 mmol/L (21.0-32.0); Chloride 108 mmol/L (98-107); Magnesium 1.6 mg/dL (1.8-2.4)
[2021-06-26] MEDS: Potassium Chloride 20 MEQ TABCR 40 MEQ PO ×3 (07:50→20:49)
[2021-06-26] MEDS: Lactobacillus Acidophilus CAP 1 CAP PO ×3 (07:50→20:49)
[2021-06-26] MEDS: Multivitamin TAB 1 TAB PO (07:50)
[2021-06-26] MEDS: Psyllium PKT 1 EACH PO ×2 (07:50→20:49)
[2021-06-26] MEDS: Folic Acid 1 MG TAB PO (07:50)
[2021-06-26] MEDS: Magnesium Gluconate 500 MG TAB PO (07:50)
[2021-06-26] MEDS: Thiamine 100 MG TAB PO (07:50)
[2021-06-26 08:03] VITALS: BP 147/85; PULSE 63; RESP 18; TEMP 37; O2SAT 95
--- NOTE | 2021-06-26 09:10 | PDOC.CMPRO ---
- If Service Date Differs Date of service: 06/26/21 Time of Service: 09:10 Care Management Progress Note S/O:Roselyn was sitting up in a chair when CM met with her. She was pleasant and engaged well with CM. Roselyn shared that she is feeling shaky today and that she had a period of blurred vision earlier. In discussing discharge, Roselyn stated that she did not feel she could go home alone. She had not ambulated much and stated that she needs to use a walker right now which is not her baseline. She admitted that she has been feeling like she is declining over the last few months. A PT evaluation was ordered and completed. Their recommendation is for PT. Roselyn has agreed to this. She also shared with CM that if needed, she would consider rehab for a brief period. A: Roselyn is a 70 year old woman admitted on 06/22/21 with Hypoglycemia P:Christina will likely return home with new home health services for PT and nursing for diabetes management. She will follow up with her PCP and plan of care and transport with family. CM will continue to assess for and support discharge needs.
--- NOTE | 2021-06-26 15:24 | PGE_ITS ---
Date of Service Date of service: 06/26/21 Time of Service: 15:25 Assessment and Plan Assessment and plan (1) Clostridium difficile diarrhea: Status: Acute Assessment and plan: continue po vancomycin and lactobacillus along w/ metamucil. dc home in the a.m. Eating ok. no abdominal pains and no fevers. (2) Alcohol abuse: Status: Chronic Assessment and plan: patient denies any hx of seizure or delirium tremens from alcohol withdrawal. Nevertheless, we will put her on CIWA monitoring and initiate appropriate treatment for alcohol withdrawal. (3) UTI (urinary tract infection): Status: Resolved Assessment and plan: Repeat blood cultures were no growth. Initial set had 1/4 bottles + non-aureus Staph. urine cultures + for E. coli that was pansensitive. Trx w/ Rocephin x 2 days and then given Fosfomyicin. Qualifiers: Urinary tract infection type: acute cystitis Hematuria presence: without hematuria Qualified Code(s): N30.00 - Acute cystitis without hematuria (4) Positive blood culture: Status: Acute Assessment and plan: 1 set positive in anaerobic bottle from 06/22 but repeat blood cultures from 06/24 was no growth. 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 She is not reliable in her dosing of her insulin nor in her timing of her insulin. Given that she presented in hypoglcyemia and unresponsive w/ glucose in the I think it best that she be converted to an oral agent. I will put her on metformin. We will still monitor and treat her w/ bolus insulin at meals but upon discharge she should be treated w/ metformin and if an additional agent is needed, consider either an GLP1 agonist or an SGLT2 inhibitor. (6) Hypoglycemia: Status: Acute Assessment and plan: as above (7) Hypomagnesemia: Status: Acute Assessment and plan: corrected w/ iv magnesium boluses. Needs to go on oral magnesium supplements. will recheck in the a.m. (8) Hypokalemia: Status: Acute Assessment and plan: improved w/ iv and oral replacements. continue to monitor (9) Fatty liver: Status: Chronic Assessment and plan: fatty changes and some nodular contour on her CT of her abdomen suggests cirrhosis. She should have follow up as outpatient w/ Fibroscan evaluation for cirrhosis. I will get Fibrosure blood test and hepatitis and HIV screen. Patient needs to quit drinking alcohol and needs outpatient follow up counseling. Subjective Subjective Interval history since last seen: Patient states that her diarrhea is improving w/ her stools are more formed now. She has no fever and no nausea or vomiting an d no abdominal pains. I told her that she will need to complete 14 days of the oral vancomycin but that this can be done at home. Initially I was going to send her home this morning but then was told in team meeting that she had stated that she is too weak to go home and that she would consider a SNF. However when I mentioned this to her she denies this and wants to return home. I think that if her diarrhea continues to improve then I will discharge her home. She still is unclear how she ended up being found down at home. I explained to her that her glucose was in the 20's and she probably took too much insulin. Her HbA1c is only 5.1%. I think that she should not go home on insulin and therefore I have put her on metformin XR. Her glucose is running higher in the 200's. Exam Narrative Exam Narrative: Elderly white female who is lying in bed, watching TV. She is alert and oriented Abdomen:obese, soft, nontender; no guarding and no rebound tenderness. normal bowel sounds Heart: RRR Lungs: clear Objective Last Vital Signs Temp 37.0 C 06/26/21 08:03 Pulse 63 06/26/21 08:03 Resp 18 06/26/21 08:03 BP 147/85 H 06/26/21 08:03 Pulse Ox 95 06/26/21 08:03 Laboratory Results - last 24 hr 06/26/21 06/26/21 07:00 08:30 Sodium 141 Potassium 4.8 D Chloride 108 H Carbon Dioxide 26.5 Anion Gap 6.5 BUN 18 Creatinine 1.0 Estimated GFR/1.73 m2 54.50 Glucose 261 H FELTON Glucose Cancelled FELTON Haptoglobin Cancelled Calcium 7.9 L Magnesium 1.6 L FELTON Total Bilirubin Cancelled FELTON GGT Cancelled FELTON AST Cancelled FELTON ALT Cancelled Liver Fib Fibro Score Cancelled Liver Fibrosis Interp Cancelled EFLTON Interpretation Cancelled FELTON Steatosis Interp Cancelled FELTON BP Serial # Cancelled FELTON Comment Cancelled Liver Fib Fibro Stage Cancelled FELTON Steatosis Score Cancelled FELTON Score Cancelled FELTON Steatosis Grade Cancelled FELTON Grade Cancelled FELTON [id number] Cancelled FELTON Triglycerides Cancelled FELTON Cholesterol Cancelled FELTON Apolipoprotein A-1 Cancelled PAWSS Have you Been Recently Intoxicated or Drunk Within the Last 30 days?: Yes Have you Ever Experienced Previous Episodes of Alcohol Withdrawal?: No Have you ever Experienced Delirium Tremens(DT)s?: No Have you ever undergone Alcohol Rehabilitation Treatment (i.e, inpt ot outpatient treatment programs)?: No Have you ever Experienced Blackouts?: No Have you ever Combined Alcohol with other Downers within the last 90 days?: No Have you ever Combined Alcohol with any other Substance of Abuse during the last 90 days?: No Positive Blood Alcohol level on Presentation? [PCS.BAL]: No Evidence of Increased Autonomic Activity (i.e. HR>120, tremor, sweating, agitation, nausea)?: Yes Result: 2
--- NOTE | 2021-06-26 15:54 | IN_ITS ---
Date of service: 06/26/21 Time of Service: 15:54 PT Notes Visit Reasons: Hypoglycemia, Hypokalemia, AMS Inpatient Physical Therapy Evaluation Date: 06/26/2021 Referring Doctor: William Doll MD PT Orders: PT CONSULT: Safety consult for D/C Precautions: Fall. Enteric contact precautions in place. Activity as tolerated Patient Profile/Admitting Diagnosis: Patient is a 70-year-old female who was brought to the ED by EMS personnel on 06/22/2021 due to unresponsiveness. Patient is diagnosed with C. difficile infection, EtOH abuse, urinary tract infection, fatty liver, hypoglycemia, hypokalemia, hypomagnesemia, and leukocytosis. PMHX: Medical History Ascites of liver (11/15/14) Diabetes mellitus (03/26/17) DKA (diabetic ketoacidoses) Essential hypertension (01/16/12) Infected sebaceous cyst Uncontrolled diabetes mellitus (~03/2017) complicated by peripheral neuropathy Uncontrolled type 2 diabetes mellitus without complication, without long-term current use of insulin (01/14/18) Surgical History Cervical Procedure S/P appendectomy S/P right cataract extraction (03/2019) S/P tonsillectomy Social History/Home Situation: Patient lives alone in a 2-story house with two steps to enter without rails. She has 12 steps to get into the second floor of the house and there is a step up onto the kitchen. Patient has a son who lives out of state but who regulary checks on his morther. Patient has been independent with al aspects of ADLs but has not been driving due to decreased visual acuity from having diabetic cataracts which has also negatively impacted the frequency of her neighborhood walks. She states she has a cane at home that she very infrequently uses. Equipment Owned/DME: SPC, shower chair, grab bar Subjective: Agreeable to PT consult. Has no recollection of what happened at her house prior to her being brought to the ED. Feels a lot better and states that she has walked to the bathroom while holding onto the table by herself earlier today. Complains of 6/10 pain in her left hip and thigh during bed mobility. Objective: General Observation: Patient seen sitting at edge of bed. radiation monitor in place. L ecchymoses een on the L UE. Minimal swelling in the L hip area. Mental Status: In NAD. Alert and oriented x 3 but is unable to recall event sthat led to her ED admission. Pain: Tenderness to L hip and anterior thigh, reports 6/10 pain ROM: Right Upper Extremity: Shoulder Flexion WFL. Shoulder abduction WFL. Elbow flexion WFL. Wrist flexion WFL. Functional opening and closing of hand WFL. Left Upper Extremity: Shoulder Flexion WFL. Shoulder abduction WFL. Elbow flexion WFL. Wrist flexion WFL. Functional opening and closing of hand WFL. Right Lower Extremity: Hip flexion WFL with discomfort reported at end of range. Hip abduction WFL discomfort reported at end of range. Knee flexion WFL. Ankle dorsiflexion WFL discomfort reported at end of range. Ankle plantarflexion WFL discomfort reported at end of range. Left Lower Extremity: Hip flexion less than 50% active range available due to pain. Unable to slide heel past 30 degrees of knee flexion and some 20 degrees of hip flexion due to pain in the L hip and and anterior thigh. Hip abduction 50% active range available due to painL. Knee flexion WFL. Kneee extension -30 degrees while seated at edge of bed. Ankle dorsiflexion to neutral only. Ankle plantarflexion to neutral only. Strength: Right Upper Extremity: Shoulder flexors 4/5. Shoulder abductors 4/5. Elbow flexors 4/5. Elbow extensors 4/5. Corporate Compliance Director strong. Left Upper Extremity: Shoulder flexors 4/5. Shoulder abductors 4/5. Elbow flexors 4/5. Elbow extensors 4/5. Corporate Compliance Director strong. Right Lower Extremity: Hip flexors 3/5. Hip abductors 4-/5. Knee flexors 4-/5. Knee extensors 3/5. Ankle dorsiflexors 4-/5. Ankle plantarflexors 4-/5. Left Lower Extremity:Hip flexors 3-/5. Hip abductors 3-/5. Knee flexors 3-/5. Knee extensors 3-/5. Ankle dorsiflexors 3-/5. Ankle plantarflexors 3-/5.. Sensation: Patient reports diminished sensation on bilateral legs and feet as to pressure, increased tingling from chroninc neuropathies related to DM. Bed Mobility/Transfers: Supine to sit minimal assist to left LE with HOB at 30 degrees Sit to supine minimal assist to left LE with HOB at 30 degrees Sit to stand CGA Stand to sit CGA Bed to chair CGA Chair to bed CGA Gait: Patient was able to tolerate 20 feet using FWW with CGA with report of pain in the left thigh and hip at 6/10 pain. Decreased daniel. Denies dizziness. Did report fatigue after activity. No LOB. Balance: Static Sitting: Normal Dynamic Sitting: Normal Static Standing: Fair Dynamic Standing: Fair Special Tests: Mobility Limitations Standardized Measure [facility] AM-PAC 6 clicks Basic Mobility Inpatient Short Form: Raw Score: 18 CMS Score: 47% Informed Consent/Education: Patient instructed in purpose of PT consult and p alexa of care. Assessment: Recommend OT referral for assessment of self-care tasks as patient lives alone. Question L quadriceps strain versus fracture in L femur, issue brought up with Dr. Krishnan. Requires use of FWW for all transfer and short distance ambulation. Will assess for the utility and safety of SPC prior to discharge. Patient is a 70-year-old female who was brought to the ED by EMS personnel on 06/22/2021 due to unresponsiveness. Patient is diagnosed with C. difficile infection, EtOH abuse, urinary tract infection, fatty liver, hypoglycemia, hypokalemia, hypomagnesemia, and leukocytosis. Patient presents with clinical signs and symptoms consistent with current/admitting diagnoses that have resulted to mobility limitations, gait instability, generalized weakness, and overall ADL decline as demonstrated by the following impairment level findings: 1. Decreased strength to L hip and knee major muscle groups 2. Impaired sitting/standing balance 3. Impaired activity tolerance 4. Limitation of joint range of motion in L hip and knee 5. Pain in L hip and thigh at 6/10 Impairments are contributing to the following functional limitations: 1. Decline in bed mobility skills 2. Decline in transfer skills 3. Difficulty with ambulation without assistive device and physical assistance 4. Increased completion time for mobility ADL performance 5. Increased risk for falls 6. Difficulty with managing steps alone safely Patient is assessed as a 60606 moderate complexity based on the following: History: Patient is a 70-year-old female who was brought to the ED by EMS personnel on 06/22/2021 due to unresponsiveness. Patient is diagnosed with C. difficile infection, EtOH abuse, urinary tract infection, fatty liver, hypoglycemia, hypokalemia, hypomagnesemia, and leukocytosis. Examination: Demonstrable impairment in strength, balance, and range of motion with underlying impairments and functional limitations as documented above Presentation: Evolving Decision Makin moderate complexity Goals: Goals X1 week 1. Supine-Sit independent 2. Sit-Supine independent 3. Sit-Stand independent with SPC 4. Stand-Sit independent with SPC 5. Bed-Chair independent with SPC 6. Chair-Bed independent with SPC 7. Independent gait on level surface with use of single-point cane for at least 300 feet without report of pain nor dyspnea 8. Independent stair negotiation while holding onto bilateral rails for at least 12 steps without report of pain nor dyspnea 9. Independent with home exercise program 10. Good static and dynamic standing balance/tolerance Plan of Care/Treatment Plan: 1-2x/day, 7 days/week x 1 week. Plan of care has been reviewed with the ELECTRICIAN SUPERVISOR SUBSTATION providing the service under Physical Therapy direction. Initiate Physical Therapy intervention for strengthening, bed mobility, transfers, gait, stairs, balance training, use of assistive device. DISCHARGE RECOMMENDATIONS: [] Home with no services [] [X] Home with services PT/OT services. Patient will benefit from home health PT services in order to progress mobility level using least restrictive assistive ambulatory device, assess home safety, identify additional equipment needs, and establish a functional maintenance program that will increase ability of patient to remain at home. [] Home with outpatient PT [] [] SNF for continued rehabilitation [] [] [facility] [] [] SNF versus LTC based on ability to participate and progress [] TREATMENT CODE/TIME: 61057 x 20 minutes, 84062 x 12 minutes beginning at 15:54 PM. Thank you for the opportunity to participate in the care of this patient. Jazlyn Owens PT, DPT, CLT [facility] [place], [place]
[2021-06-26 16:03] VITALS: BP 146/76; PULSE 60; RESP 18; TEMP 36.4; O2SAT 95
[2021-06-26] MEDS: metFORMIN C.R. 500 MG TABCR PO (16:23)
[2021-06-26] MEDS: Insulin Glargine 300 UNITS/3 ML PEN 15 UNITS SC (20:56)
[2021-06-27] MEDS: Enoxaparin 40 MG/0.4 ML SYR SC (04:22)
[2021-06-27] MEDS: Insulin Aspart 300 UNITS/3 ML PEN SC ×4 (09:54→13:22)
[2021-06-27] MEDS: Folic Acid 1 MG TAB PO (09:54)
[2021-06-27] MEDS: Lactobacillus Acidophilus CAP 1 CAP PO ×2 (09:55→13:21)
[2021-06-27] MEDS: Magnesium Gluconate 500 MG TAB PO (09:55)
[2021-06-27] MEDS: Multivitamin TAB 1 TAB PO (09:56)
[2021-06-27] MEDS: Thiamine 100 MG TAB PO (09:56)
[2021-06-27] MEDS: Potassium Chloride 20 MEQ TABCR 40 MEQ PO ×2 (09:56→13:21)
[2021-06-27] MEDS: Psyllium PKT 1 EACH PO (09:56)
--- NOTE | 2021-06-27 10:02 | PDOC.CMDIS ---
- If Service Date Differs Date of service: 06/27/21 Time of Service: 10:02 LACE Index Scoring Tool - Questions: Length of Stay (in days): 4 - 6 Acuity (Admit via E.D.?): Yes E.D. Visits: 1 - Answers: Total Score: 8 Risk of Readmission: Low Risk Care Management Discharge Reason for Hospitalization: Hypoglycemia Discharge Plan: Christina will return home with new home health services for PT and nursing for diabetes management. She will follow up with her PCP and plan of care and transport with family. Patient/Family Education Needs: Review discharge instructions, discuss Ask Me Three. Services Needed at Discharge: Home Health Care Services ([facility]: RN/PT)
--- NOTE | 2021-06-27 10:27 | W.PM.DS.N ---
Date of service: 06/27/21 Time of Service: 10:27 DS: Diagnosis Discharge Diagnosis (1) Hypoglycemia: Status: Resolved Asessment and Plan: 70-year-old female with type 2 diabetes mellitus currently managed with insulin who has had a history of poor compliance. She admits she does not always take her Lantus at the same time of day and varies her dose between 30 to 35 units. Patient was found down at home after she failed to respond to a phone call from her son. Please were called her home and EMS was called when she was found down with a blood sugar of 20s. EMS treated with dextrose 50% and patient was brought to emergency department Her blood sugar was 120 but then dropped down to 57 and she required more dextrose 50%. Because she was found down at home she had extensive evaluation with CT scan of her head neck chest abdomen and pelvis along with routine labs. Urinalysis was suspicious for UTI as it was positive for nitrites. Noncontrast CT scan of the head neck showed no acute cervical spine injury no acute intracranial abnormalities. CT of the chest and abdomen pelvis showed fatty liver changes along with some nodular contour to her liver suggestive of cirrhosis. She has small bilateral pleural effusions and cardiomegaly but no makenzie pulmonary edema. Abdominal CT showed no other significant pathology. She had a nonobstructing calcification of the right kidney but no hydronephrosis. No aneurysm and no gallbladder abnormalities. Pancreas is atrophic with calcifications. Blood and urine cultures were obtained on admission and her urine culture grew E. coli greater than 100,000 colonies for which she was treated with Rocephin for 2 days and then given a dose of fosfomycin 3 g. Subsequently has been learned that she also had Enterococcus species in her urine but only 10-50,000 colonies. Preliminary blood cultures on admission showed an anaerobic bottle that was positive for staph epi. Subsequent blood cultures from June 24 showed no growth. Since completion of her ceftriaxone and her fosfomycin she is remained afebrile and has no leukocytosis. Diarrhea has improved since she has been put on vancomycin and lactobacillus capsules along with Metamucil. On the day prior to and the day of discharge her blood sugars are running between 160 and 250. Her Lantus dose has been cut down to 15 units at at bedtime and she was covered with sliding scale. Metformin XR 500 mg was added to her regimen. She will be discharged on continued doses of Lantus at an increased dose of 20 units nightly along with her Metformin XR 500 mg daily. It is recommended that these doses be carefully titrated. Patient will need further follow-up diabetic education either through visiting nurse or through [facility] family educator. Recommend that she be considered for a CGM monitor. Patient strongly advised to quit drinking as her alcoholism has contributed to her erratic blood sugars. Of note glycohemoglobin A1c was checked this admission and found to be low at 5.1% which suggest that she is having frequent low glucose readings. . 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 Her acute mental status after resolution of her hypoglycemia. Patient was then resumed on low dose Lantus and Metformin was added to her regimen. Blood sugars at the time of discharge were running between 160 and 250. Further adjustments will need to be made as an outpatient regarding her Lantus dose and her Metformin XR. While here in the hospital she received Lantus 15 units nightly and this was titrated up to 20 units at discharge while the Metformin XR was kept at 500 mg daily. The fact that her glycohemoglobin A1c is only 5.1% suggest that she is having frequent hypoglycemic spells at home. Follow-up will be needed with diabetic education either at [facility] or through visiting nurse. (3) Clostridium difficile diarrhea: Status: Acute Asessment and Plan: After the patient been on IV antibiotics for couple days she started having diarrhea and was found to have C. difficile in her stool and was put on oral vancomycin. Parenteral systemic antibiotics were discontinued after she pulled out her IV. She did complete 2 days with the ceftriaxone and was subsequently given fosfomycin 3 g for her E. coli UTI. She briefly was given IV vancomycin while we are awaiting her repeat blood cultures. Patient will be discharged home on 2-week course of oral vancomycin 500 mg p.o. 4 times daily along with lactobacillus capsules of Metamucil. (4) UTI (urinary tract infection): Status: Resolved Asessment and Plan: Initial urine culture grew E. coli greater than 100,000 colonies that was pansensitive and was treated with Rocephin for 2 days and then when she pulled out her IV she was given a dose of fosfomycin 3 g p.o. Subsequently her urine culture is now showing that she had 10-50,000 colonies of Enterococcus. Of note her initial blood culture grew 1 bottle positive for staph epi and an anaerobic bottle suggestive of contaminant. Repeat blood cultures were obtained on June 24, 2021 which showed no growth. Patient was briefly put on IV vancomycin pending the results of her repeat blood culture. She subsequently developed diarrhea and was found to have C. difficile and all parenteral antibiotics were discontinued and she was put on oral vancomycin 500 mg p.o. 4 times daily. She was also given lactobacillus capsules and put on Metamucil. Stools have since firmed up and she is down to a couple bowel movements a day. (5) Alcohol abuse: Status: Chronic Asessment and Plan: Patient has fatty liver changes along with irregular contour to the liver consistent with cirrhosis. Fibrosure test was ordered and is still pending at this time. Patient strongly advised to quit drinking alcohol. Patient is discharged home on multivitamin along with thiamine folic acid. (6) Positive blood culture: Status: Ruled-out Asessment and Plan: Initial blood culture showed a contaminant of Staph epidermidis in 1 out of 2 bottles on admission. Subsequent blood cultures from June 24, 2021 showed no growth. (7) Hypomagnesemia: Status: Resolved Asessment and Plan: Hypomagnesemia was treated with IV and oral supplementation. Repeat labs to be ordered in 1 week to assess stability. Patient is advised to quit drinking alcohol. (8) Hypokalemia: Status: Resolved Asessment and Plan: Replace with IV and oral supplementation. Potassium has been corrected. Repeat levels will be ordered in a week (9) Fatty liver: Status: Chronic Asessment and Plan: CT findings suspicious for cirrhosis. FibroSure test is pending. Consider sending the patient to hepatology for a FibroScan. Counseled patient regarding her need to quit drinking. (10) Mobility impaired: Status: Acute Asessment and Plan: Patient was evaluated and treated by physical therapy who recommends continued home physical therapy to improve her mobility and to help her regain her independence. Patient was ambulating with use of a front wheel walker with only CGA. I discussed with the patient the possibility going to a halfway facility for short-term rehab stay but patient declined the same. Discharge Plan Disposition Patient Disposition: HOME W/HOME HEALTH SERVICE Condition: Improving Discharge Details Reason For Visit: Hypoglycemia, Hypokalemia, AMS Admit Date/Time: 06/22/21 23:19 Admit Provider: Elliott Milan Attending Provider: Elliott Milan Primary Care Provider: Renée Walker Home Meds and New Rx's Prescriptions: New acidophilus-pectin, citrus 25 million cell -100 mg Tablet 2 tab PO TID 14 Days Qty: 84 RF: 0 metformin 500 mg Tablet Extended Release 24 Hr 500 mg PO DAILY@1700 90 Days RF: 0 thiamine mononitrate (vit B1) [Vitamin B-1 (mononitrate)] 100 mg Tablet 100 mg PO QAM 30 Days Qty: 30 RF: 0 vancomycin 250 mg Capsule 500 mg PO Q6H 14 Days Qty: 112 RF: 0 Metamucil Sugar-Free (aspart) 3.4 gram/5.8 gram Powder See Rx Instructions .ROUTE .COMPLEX 14 Days Qty: 660 RF: 0 multivitamin [Multiple Vitamins] Tablet 1 tab PO QAM 30 Days Qty: 30 RF: 0 folic acid 1 mg Tablet 1 mg PO QAM 30 Days Qty: 30 RF: 0 magnesium gluconate 27 mg magnesium (500 mg) tablet 27 mg PO BID Qty: 60 RF: 0 Changed Lantus Solostar U-100 Insulin 100 unit/mL (3 mL) insulin pen 20 unit SC HS Qty: 45 RF: 3 No Action acetaminophen [Acetaminophen Extra Strength] 500 mg tablet 500 mg PO Q6H PRNRF: 0 furosemide 20 mg tablet 20 mg PO DAILY PRN (Reason: edema) Qty: 30 RF: 1 Hold Instructions: Home Medication placed on hold at Doctor's office (DME) blood sugar diagnostic Strip See Rx Instructions .ROUTE .MEDSUPPLY Qty: 180 RF: 3 (DME) lancets [OneTouch Delica Lancets] 30 gauge misc See Rx Instructions .ROUTE .MEDSUPPLY Qty: 100 RF: 3 (DME) OneTouch Verio test strips Strip 1 ea Miscellaneous QID Qty: 180 RF: 3 potassium chloride 10 mEq capsule, extended release 10 meq PO DAILY Qty: 30 RF: 0 (DME) pen needle, diabetic [Lite Touch Insulin Pen [place]] 31 gauge x 1/4 needle See Rx Instructions .ROUTE .MEDSUPPLY Qty: 30 RF: 11 Discharge Instructions Instructions: Hypoglycemia in a Person with Diabetes (DC), C. Diff (Clostridioides Difficile) Infection (DC) Referrals: Savita Albarran [FLIGHT/TRANSPORT NURSE] - Renée Walker MD [Primary Care Provider] - Activity:: Activity as Tolerated Equipment/Supplies:: No Equipment Needed Diet:: Carb Counting Discharge Orders Discharge Orders: Discharge Order (Routine); Ordered 06/27/21 Ordered By: William Doll Other Ambulatory Orders: Potassium (Routine) Timeframe: 1 Week Facility: [facility] - Location: Laboratory Outpatient Ordered By: William Doll Magnesium (Routine) Timeframe: 1 Week Facility: [facility] - Location: Laboratory Outpatient Ordered By: William Doll DS: Summary Time Spent with Patient providing and/or coordinating discharge services: Greater than 30 minutes Status at Discharge Functional status at discharge: uses cane/walker Overall status at discharge: patient is progressing back to baseline Mental Status: mental status grossly normal Speech and Movement: speech and movement normal Mood: congruent mood Affect: normal affect Exam Narrative Exam Narrative: Elderly white female who is lying in bed, watching TV. She is alert and oriented Abdomen:obese, soft, nontender; no guarding and no rebound tenderness. normal bowel sounds Heart: RRR Lungs: clear Psych Mental Status: mental status grossly normal Speech and Movement: speech and movement normal Mood: congruent mood Affect: normal affect DS: Data Vitals/I&O Vitals and I&O: Vital Signs Temperature 36.4 C L 06/26/21 16:03 Temperature Source Tympanic 06/26/21 16:03 Pulse 60 06/26/21 16:03 Pulse Rhythm Regular 06/26/21 20:45 Pulse Strength Weak 06/22/21 23:09 Pulse 69 06/24/21 16:01 Respiratory Rate 18 06/26/21 16:03 Respiratory Effort Non-Labored 06/26/21 20:45 Respiratory Depth Normal 06/26/21 20:45 Respiratory Pattern Normal 06/26/21 20:45 Blood Pressure 146/76 H 06/26/21 16:03 Blood Pressure Mean 67 06/24/21 16:00 Blood Pressure Position Supine 06/24/21 16:37 Pulse Oximetry 95 06/26/21 16:03 Respiratory End-tidal CO2 35 06/23/21 00:46 Oxygen Delivery Method Room Air 06/26/21 16:03 Oxygen Flow Rate 0 06/26/21 16:03 Pain Level 6 06/26/21 16:03 Comment 06/26/21 08:03 Intake & Output 06/26/21 06/26/21 06/27/21 11:59 23:59 11:59 Intake Total 420 / 1210 790 / 1210 240 / 240 Output Total 150 / 150 Balance 270 / 1060 790 / 1060 240 / 240 Weight 85.4 kg Intake: Oral 420 / 1210 790 / 1210 240 / 240 Output: Urine 150 / 150 Other: Urine Color Yellow Yellow Urine Appearance Clear Clear Urine Odor Normal Comment pT said she was dry when [employer] went in to check on pT. Stool Size Large Moderate Stool Characteristics Soft Soft Formed Brown Voiding Methods Incontinent Toilet Data Completed and Pending Labs on day of discharge: Labs from last 24 hours 06/27/21 06/27/21 06/26/21 06:00 05:25 08:30 WBC Pending RBC Pending Hgb Pending Hct Pending MCV Pending MCH Pending MCHC Pending RDW Pending Plt Count Pending MPV Pending FELTON Glucose Pending Cancelled FELTON Haptoglobin Pending Cancelled FELTON Total Bilirubin Pending Cancelled FELTON GGT Pending Cancelled FELTON AST Pending Cancelled FELTON ALT Pending Cancelled Liver Fib Fibro Score Pending Cancelled Liver Fibrosis Interp Pending Cancelled FELTON Interpretation Pending Cancelled FELTON Steatosis Interp Pending Cancelled FELTON BP Serial # Pending Cancelled FELTON Comment Pending Cancelled Liver Fib Fibro Stage Pending Cancelled FELTON Steatosis Score Pending Cancelled FELTON Score Pending Cancelled FELTON Steatosis Grade Pending Cancelled FELTON Grade Pending Cancelled FELTON [id number] Pending Cancelled FELTON Triglycerides Pending Cancelled FELTON Cholesterol Pending Cancelled FELTON Apolipoprotein A-1 Pending Cancelled Hep Bs Antigen Hep Bs Antibody Hep Bs Antibody, Quant Hep B Core Total Ab Hepatitis C Antibody 06/26/21 07:00 WBC RBC Hgb Hct MCV MCH MCHC RDW Plt Count MPV FELTON Glucose FELTON Haptoglobin FELTON Total Bilirubin FELTON GGT FELTON AST FELTON ALT Liver Fib Fibro Score Liver Fibrosis Interp FELTON Interpretation FELTON Steatosis Interp FELTON BP Serial # FELTON Comment Liver Fib Fibro Stage FELTON Steatosis Score FELTON Score FELTON Steatosis Grade FELTON Grade FELTON [id number] FELTON Triglycerides FELTON Cholesterol FELTON Apolipoprotein A-1 Hep Bs Antigen Pending Hep Bs Antibody Pending Hep Bs Antibody, Quant Pending Hep B Core Total Ab Pending Hepatitis C Antibody Pending Preliminary micro results at discharge 06/22/21 20:17 Blood Culture - Preliminary Blood Staphylococcus Epidermidis 06/24/21 08:27 Blood Culture - Preliminary Blood NO GROWTH 48 HOURS 06/24/21 08:27 Blood Culture - Preliminary Blood NO GROWTH 48 HOURS 06/22/21 23:10 Blood Culture - Preliminary Blood [facility] Active Problem List (Updated 06/27/21 @ 11:02 by William Doll) Mobility impaired (Acute) Alcohol abuse (Chronic) Clostridium difficile diarrhea (Acute) Leukocytosis (Acute) AMS (altered mental status) (Acute) Phase of life problem in adult (Acute) Depression (Chronic) 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) (Chronic) Abnormal EKG (Acute) Advance directive on file (Acute) Status post fall (Acute) Cataracts, bilateral (Acute) Unintentional weight loss (Acute) Pure hypercholesterolemia (Acute 03/26/17) Portal hypertension (Acute 09/07/14) Neuropathy (Acute 04/23/13) Hammer toe (Acute 04/23/13) Fatty liver (Chronic 01/04/15) Anxiety state, unspecified (Acute 02/02/13) Medical History (Updated 06/27/21 @ 11:02 by William Doll) Ascites of liver (11/15/14) Diabetes mellitus (03/26/17) DKA (diabetic ketoacidoses) Essential hypertension (01/16/12) Infected sebaceous cyst Uncontrolled diabetes mellitus (~03/2017) complicated by peripheral neuropathy Uncontrolled type 2 diabetes mellitus without complication, without long-term current use of insulin (01/14/18) Surgical History Cervical Procedure S/P appendectomy S/P right cataract extraction (03/2019) S/P tonsillectomy Family History Grandmother Stroke Mother No problems noted. 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
--- NOTE | 2021-06-27 10:29 | PDOC.HHF2F_ITS ---
Home Health Certification Home Health Certification: 1. Encounter Date and Reason I certify that Christina Frye was seen by William Doll on 06/27/21 and that I had a [id number] encounter with this patient that meets the physician face to face encounter requirements. 2. Clinical Findings Supporting Skilled Need and Homebound Status I certify that home health services are medically necessary, include either intermittent half-way and/or physical/speech therapy, and that this patient is homebound in that absences from the home require considerable and taxing effort and are infrequent or of short duration, or are attributable to the need to receive medical care. [X] (a) Attached documentation from encounter provides clinical findings supporting skilled need and homebound status (including what assistance patient requires to leave the home). The encounter with the patient was in whole, or in part, for the following medical condition, which is the primary reason for home health care: Hypoglycemia, Hypokalemia, AMS Halfway: half-way to assist patient w/ management of her DM and prevent hypoglycemia; draw labs; coordinate med changes w/ PCP; educate patient about C dif, monitor response to treatment for C. diff Physical Therapy: P.T. to evaluate and treat for generalized weakness d/t recent admission for hypoglycemia, C. diff diarrhea Speech Therapy: Homebound: generalized weakness d/t C. diff. diarrhea along w/ recent hypoglycemia has made travel outside her home hazardous to her health 3. Certification and Authentication I certify that I composed the above information based on my clinical judgement relating to this patient's medical condition and, if applicable, clinical findings communicated to me by the NPP or inpatient physician who performed the Home Health Referral. All further orders will be obtained through Renée Walker ([facility] Based Physician - PCP)
[2021-06-27 11:14] LABS: HIV-1/2 Ag & Ab Screen Negative (Negative)
[2021-06-27 11:41] LABS: HBs Antibody, Qual Negative (See Note); HBs Antibody, Quant <3.1 mIU/mL (See Note); Hepatitis B Core Antibody Negative (Negative); Hepatitis B surface Ag Negative (Negative); Hepatitis C Ab w Rflx HCV PCR Negative (Negative)
[2021-06-27 11:42] LABS: HGB 11.5 g/dL (11.2-15.7); MCH 35.1 pg (27.0-33.0); MCHC 32.9 % (32.0-36.0); MCV 106.7 fL (80-95); MPV 10.8 fL (8.0-11.0); Platelet Count 153 10^3/uL (130-400); RBC 3.28 10^6/uL (3.93-5.22); RDW 15.1 % (11.7-14.6); RDW-SD 59.4 fL; WBC 7.65 10^3/uL (4.4-10.8)
--- NOTE | 2021-06-27 13:14 | DIABASSESS_ITS ---
Date of service: 06/27/21 Time of Service: 13:15 Diabetes Note NOTE: Diabetes education consult noted. 70yo female admitted for AMS due to glucose in the 20?s when EMS picked her up. Was able to converse with Christina briefly as she started to lose focus/get sleepy. Pt has a questionable compliance history with her insulin per provider notes and assessment with pt today. Attempted to review importance of carb consistent menu planning and reviewed educational material in carbohydrate management with Christina with suspected low understanding based on her low ability to stay alert and engaged. Gave pt educational material to take home, along with contact info for CDE here at [facility] to call after discharge today. I communicated level of understanding and need for education to CDE and she will reach out with phone call to pt tomorrow as well, with goal of establishing outpatient support for glycemic management at home. Time Spent in Nutritional Counseling and Treatment: 0
--- NOTE | 2021-06-27 16:50 | PT.INDS ---
Date of service: 06/27/21 PT Notes Visit Reasons: Hypoglycemia, Hypokalemia, AMS Physical Therapy Inpatient Discharge Summary Date: 06/26/2021 Dates of Service: 06/26/2021 only This is a clinical summary of care provided for the duration of dates listed above. No charge was made in the completion of this documentation. Referring Doctor: William Doll MD PT Orders: PT CONSULT: Safety consult for D/C Precautions: Fall. Enteric contact precautions in place. Activity as tolerated Patient Profile/Admitting Diagnosis: Patient is a 70-year-old female who was brought to the ED by EMS personnel on 06/22/2021 due to unresponsiveness. Patient is diagnosed with C. difficile infection, EtOH abuse, urinary tract infection, fatty liver, hypoglycemia, hypokalemia, hypomagnesemia, and leukocytosis. PMHX: Medical History Ascites of liver (11/15/14) Diabetes mellitus (03/26/17) DKA (diabetic ketoacidoses) Essential hypertension (01/16/12) Infected sebaceous cyst Uncontrolled diabetes mellitus (~03/2017) complicated by peripheral neuropathy Uncontrolled type 2 diabetes mellitus without complication, without long-term current use of insulin (01/14/18) Surgical History Cervical Procedure S/P appendectomy S/P right cataract extraction (03/2019) S/P tonsillectomy Social History/Home Situation: Patient lives alone in a 2-story house with two steps to enter without rails. She has 12 steps to get into the second floor of the house and there is a step up onto the kitchen. Patient has a son who lives out of state but who regulary checks on his morther. Patient has been independent with al aspects of ADLs but has not been driving due to decreased visual acuity from having diabetic cataracts which has also negatively impacted the frequency of her neighborhood walks. She states she has a cane at home that she very infrequently uses. Equipment Owned/DME: SPC, shower chair, grab bar Subjective: Agreeable to PT consult. Has no recollection of what happened at her house prior to her being brought to the ED. Feels a lot better and states that she has walked to the bathroom while holding onto the table by herself earlier today. Complains of 6/10 pain in her left hip and thigh during bed mobility. Objective: General Observation: Patient seen sitting at edge of bed. 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 L ecchymoses een on the L UE. Minimal swelling in the L hip area. Mental Status: In NAD. Alert and oriented x 3 but is unable to recall event sthat led to her ED admission. Pain: Tenderness to L hip and anterior thigh, reports 6/10 pain ROM: Right Upper Extremity: Shoulder Flexion WFL. Shoulder abduction WFL. Elbow flexion WFL. Wrist flexion WFL. Functional opening and closing of hand WFL. Left Upper Extremity: Shoulder Flexion WFL. Shoulder abduction WFL. Elbow flexion WFL. Wrist flexion WFL. Functional opening and closing of hand WFL. Right Lower Extremity: Hip flexion WFL with discomfort reported at end of range. Hip abduction WFL discomfort reported at end of range. Knee flexion WFL. Ankle dorsiflexion WFL discomfort reported at end of range. Ankle plantarflexion WFL discomfort reported at end of range. Left Lower Extremity: Hip flexion less than 50% active range available due to pain. Unable to slide heel past 30 degrees of knee flexion and some 20 degrees of hip flexion due to pain in the L hip and and anterior thigh. Hip abduction 50% active range available due to painL. Knee flexion WFL. Kneee extension -30 degrees while seated at edge of bed. Ankle dorsiflexion to neutral only. Ankle plantarflexion to neutral only. Strength: Right Upper Extremity: Shoulder flexors 4/5. Shoulder abductors 4/5. Elbow flexors 4/5. Elbow extensors 4/5. [place] strong. Left Upper Extremity: Shoulder flexors 4/5. Shoulder abductors 4/5. Elbow flexors 4/5. Elbow extensors 4/5. Cook [place] strong. Right Lower Extremity: Hip flexors 3/5. Hip abductors 4-/5. Knee flexors 4-/5. Knee extensors 3/5. Ankle dorsiflexors 4-/5. Ankle plantarflexors 4-/5. Left Lower Extremity:Hip flexors 3-/5. Hip abductors 3-/5. Knee flexors 3-/5. Knee extensors 3-/5. Ankle dorsiflexors 3-/5. Ankle plantarflexors 3-/5.. Sensation: Patient reports diminished sensation on bilateral legs and feet as to pressure, increased tingling from chroninc neuropathies related to DM. Bed Mobility/Transfers: Supine to sit minimal assist to left LE with HOB at 30 degrees Sit to supine minimal assist to left LE with HOB at 30 degrees Sit to stand CGA Stand to sit CGA Bed to chair CGA Chair to bed CGA Gait: Patient was able to tolerate 20 feet using FWW with CGA with report of pain in the left thigh and hip at 6/10 pain. Decreased daniel. Denies dizziness. Did report fatigue after activity. No LOB. Balance: Static Sitting: Normal Dynamic Sitting: Normal Static Standing: Fair Dynamic Standing: Fair Assessment: Requires use of FWW for all transfer and short distance ambulation. Will assess for the utility and safety of SPC prior to discharge. Patient is a 70-year-old female who was brought to the ED by EMS personnel on 06/22/2021 due to unresponsiveness. Patient is diagnosed with C. difficile infection, EtOH abuse, urinary tract infection, fatty liver, hypoglycemia, hypokalemia, hypomagnesemia, and leukocytosis. Patient presents with clinical signs and symptoms consistent with current/admitting diagnoses that have resulted to mobility limitations, gait instability, generalized weakness, and overall ADL decline as demonstrated by the following impairment level findings: 1. Decreased strength to L hip and knee major muscle groups 2. Impaired sitting/standing balance 3. Impaired activity tolerance 4. Limitation of joint range of motion in L hip and knee 5. Pain in L hip and thigh at 6/10 Impairments are contributing to the following functional limitations: 1. Decline in bed mobility skills 2. Decline in transfer skills 3. Difficulty with ambulation without assistive device and physical assistance 4. Increased completion time for mobility ADL performance 5. Increased risk for falls 6. Difficulty with managing steps alone safely Goals: Goals X1 week 1. Supine-Sit independent NOT MET 2. Sit-Supine independent NOT MET 3. Sit-Stand independent with SPC NOT MET 4. Stand-Sit independent with SPC NOT MET 5. Bed-Chair independent with SPC NOT MET 6. Chair-Bed independent with SPC NOT MET 7. Independent gait on level surface with use of single-point cane for at least 300 feet without report of pain nor dyspnea NOT MET 8. Independent stair negotiation while holding onto bilateral rails for at least 12 steps without report of pain nor dyspnea NOT MET 9. Independent with home exercise program NOT MET 10. Good static and dynamic standing balance/tolerance NOT MET DISCHARGE RECOMMENDATIONS: [] Home with no services [] [X] Home with services PT/OT services. Patient will benefit from home health PT services in order to progress mobility level using least restrictive assistive ambulatory device, assess home safety, identify additional equipment needs, and establish a functional maintenance program that will increase ability of patient to remain at home. [] Home with outpatient PT [] [] SNF for continued rehabilitation [] [] Shelter Care [] [] SNF versus LTC based on ability to participate and progress [] TREATMENT CODE/TIME: IN Thank you for the opportunity to participate in the care of this patient. Jazlyn Owens PT, DPT, CLT [facility] [place], [place]
== END 2021-06-27 13:36 | disposition home health service (06) | DRG 638 ==
LOC: ER 23:30 → ICU 06-23 02:46 → MS 06-24 16:23
PROVIDERS: Internal Medicine; Student in an Organized Health Care Education/Training Program; Admitting Provider Family Medicine; Emergency Provider Physician Assistant; PCP Internal Medicine; Visit Provider Family Medicine
DX: E13.649 Other specified diabetes mellitus with hypoglycemia without coma; N30.00 Acute cystitis without hematuria; A04.72 Enterocolitis due to Clostridium difficile, not specified as recurrent; F10.10 Alcohol abuse, uncomplicated; T38.3X5A Adverse effect of insulin and oral hypoglycemic [antidiabetic] drugs, initial encounter; Y92.009 Unspecified place in unspecified non-institutional (private) residence as the place of occurrence of the external cause; T38.3X6A Underdosing of insulin and oral hypoglycemic [antidiabetic] drugs, initial encounter; E83.42 Hypomagnesemia; E87.6 Hypokalemia; I10 Essential (primary) hypertension; Z79.4 Long term (current) use of insulin; Z78.1 Physical restraint status; B96.20 Unspecified Escherichia coli [E. coli] as the cause of diseases classified elsewhere; E13.42 Other specified diabetes mellitus with diabetic polyneuropathy; E13.65 Other specified diabetes mellitus with hyperglycemia; Z91.128 Patient's intentional underdosing of medication regimen for other reason; K74.60 Unspecified cirrhosis of liver
CPT/HCPCS: 36410; 36415; 36416; 71250; 80048; 80051; 80053; 80307; 82172; 82247; 82465; 82550; 82805; 82947; 82962; 82977; 83010; 83690; 83883; 84145; 84450; 84460; 84478; 85027; 86704; 86706; 86803; 86850; 86900; 86901; 87040; 87077; 87340; 87389; 87493; 87505; 87635; 93005; 96360; 96361; 96365; 96366; 96368; 96375; 97162; 97530; 99291; J1650; 36600; 70450; 72125; 74176; 80320; 80329; 81003; 81015; 82140; 83036; 83605; 83630; 83735; 84132; 84443; 84484; 85025; 85610; 85730; 86140; 87086; 87186; 93010; 99222; 99232; 99233; 99239; J0696; J1720; J2250; J3475; J3480; J3490; J7042

== ENCOUNTER 2021-07-05 16:51 | Outpatient (REF) | payer MEDICARE, OTHER, SELFPAY ==
[2021-07-05 21:07] LABS: Magnesium 1.4 mg/dL (1.8-2.4); Potassium 4.8 mmol/L (3.5-5.1)
== END 2021-07-05 16:52 | disposition home or self-care (01) ==
LOC: LBN 16:51
PROVIDERS: PCP Internal Medicine; Visit Provider Internal Medicine
DX: K76.0 Fatty (change of) liver, not elsewhere classified (principal); F10.10 Alcohol abuse, uncomplicated
CPT/HCPCS: 83735; 84132

== ENCOUNTER 2023-03-12 16:49 | Outpatient (REF) | payer MEDICARE, OTHER, SELFPAY ==
[2023-03-12 18:57] LABS: Anion Gap 13.2 mmol/L (3-11); BUN 41 mg/dL (7-18); CO2 18.8 mmol/L (21.0-32.0); CREATININE 1.9 mg/dL (0.55-1.02); Calcium 9.1 mg/dL (8.5-10.1); Calculated LDL 60 mg/dL (<100); Chloride 108 mmol/L (98-107); Cholesterol 126 mg/dL (<200); Estimated GFR 27.37 (mL/min/1.73m2); Glucose 217 mg/dL (74-106); HDL Cholesterol 41 mg/dL (40-60); Potassium 4.5 mmol/L (3.5-5.1); Sodium 140 mmol/L (136-145); Triglyceride 128 mg/dL (<150)
== END 2023-03-12 16:50 | disposition home or self-care (01) ==
LOC: LBO 16:49
PROVIDERS: PCP Nurse Practitioner Adult Health; Visit Provider Nurse Practitioner Adult Health
DX: E11.65 Type 2 diabetes mellitus with hyperglycemia (principal); I87.2 Venous insufficiency (chronic) (peripheral); R60.9 Edema, unspecified
CPT/HCPCS: 80048; 80061

== ENCOUNTER 2024-01-21 10:06 | Emergency (ER) | payer MEDICARE, OTHER, SELFPAY ==
[2024-01-21] VITALS (84 sets, daily range): BP systolic 59–167; BP diastolic 24–102; PULSE 61–125; RESP 9–28; TEMP 35.9; O2SAT 92–100
--- NOTE | 2024-01-21 10:00 | RT.EKG_ITS ---
APPROVED REPORT Exam: Resting ECG Reason for Exam: [facility] Patient Location: E HR:61 bpm ECG Measurements Heart Rate 61 AXIS MD 78 P 0 QRSd 99 QRS 0 QT 435 T 141 QTc 439 Conclusion Sinus rhythm...normal P axis, V-rate 60- 99 Indeterminate axis...QRS axis indeterminate Abnrm T, consider ischemia, anterolateral lds...T <-0.20mV, I aVL V2-V6 sinus rhtthm, normal axis, normal itnervals, consider biphasic t waves anterior lateral
--- NOTE | 2024-01-21 10:26 | ED.GENADUL_ITS ---
Discharge Plan Discharge Details Chief Complaint: AMS/LOC Primary Care Provider: Di Busch ED Provider: Peter Simeon Home Meds and New Rx's Prescriptions: No Action (DME) pen needle, diabetic [Lite Touch Insulin Pen [place]] 31 gauge x 1/4 needle See Rx Instructions .ROUTE .MEDSUPPLY Qty: 200 11RF Rx Instructions: As directed BID (DME) lancets [OneTouch Delica Lancets] 30 gauge misc See Rx Instructions .ROUTE .MEDSUPPLY Qty: 100 3RF Rx Instructions: As directed to check blood sugars daily to keep AIC below 7.0 acetaminophen [Acetaminophen Extra Strength] 500 mg tablet 500 mg PO Q6H PRN (DME) blood sugar diagnostic Strip See Rx Instructions .ROUTE .MEDSUPPLY Qty: 180 3RF Rx Instructions: One Touch Verio. For E11.10 A1C<7. To test BID. insulin degludec [Tresiba FlexTouch U-100] 100 unit/mL (3 mL) insulin pen 22 unit subcut BID Qty: 15 2RF Rx Instructions: Changing from lantus to tresiba for insurance, also slight dose increase 06/12/23 glimepiride 2 mg tablet 2 mg PO QAM Qty: 90 3RF Rx Instructions: take with breakfast furosemide 20 mg tablet 20 mg PO DAILY PRN (Reason: edema) Qty: 30 1RF Hold Instructions: Home Medication placed on hold at Doctor's office HPI General Date/Time Provider Initiated Documentation: 01/21/24 10:08 . HPI Narrative: 73-year-old female brought in by EMS after being found altered at home after welfare check was called, patient soiled with possible bloody emesis near her on the couch. Patient initially only alert to self and not to place or time Related Data Home Medications Medication Instructions Recorded Confirmed acetaminophen 500 mg tablet 500 mg PO Q6H PRN 09/01/19 01/21/24 (Acetaminophen Extra Strength) lancets 30 gauge (OneTouch Delica #100 ea 02/28/22 06/12/23 Lancets) pen needle, diabetic 31 gauge x #200 ea 02/28/22 06/12/23 1/4 (Lite Touch Insulin Pen [place]) blood sugar diagnostic #180 ea 09/03/22 06/12/23 glimepiride 2 mg tablet 2 mg PO QAM #90 tabs 09/05/23 01/21/24 furosemide 20 mg tablet 20 mg PO DAILY PRN edema #30 tabs 10/28/23 01/21/24 insulin degludec 100 unit/mL (3 22 unit (0.22 mL) subcut BID #15 mL 11/12/23 01/21/24 mL) subcutaneous pen (Tresiba FlexTouch U-100 insulin) Previous Rx's Medication Instructions Recorded lancets 30 gauge (OneTouch Delica #100 ea 02/28/22 Lancets) pen needle, diabetic 31 gauge x #200 ea 02/28/2208/15 (Lite Touch Insulin Pen [place]) blood sugar diagnostic #180 ea 09/03/22 glimepiride 2 mg tablet 2 mg PO QAM #90 tabs 09/05/23 furosemide 20 mg tablet 20 mg PO DAILY PRN edema #30 tabs 10/28/23 insulin degludec 100 unit/mL (3 22 unit (0.22 mL) subcut BID #15 mL 11/12/23 mL) subcutaneous pen (Tresiba FlexTouch U-100 insulin) Allergies Allergy/AdvReac Type Severity Reaction Status Date / Time Penicillins Allergy Intermediate rash Verified 01/21/24 10:14 Sulfa (Sulfonamide Allergy Unknown Other (See Verified 01/21/24 10:14 Antibiotics) Comment) metformin AdvReac Intermediate Fatigue Verified 01/21/24 10:14 ct scan dye Allergy Unknown Other (See Uncoded 01/21/24 10:14 Comment) General Stated Complaint: AMS/LOC DEENA: 3 Review of Systems Narrative: Review of Systems Constitutional: Altered mental status Eyes: negative ENT: negative Cardiovascular: negative Respiratory: negative Gastrointestinal: negative : negative Musculoskeletal: negative Skin: negative Neurologic: negative Psych: negative Exam Narrative Exam Narrative: Physical Examination General: alert, awake, somnolent appearing, frail, pale, dry HEENT: normocephalic, atraumatic; PERRL, EOM intact, conjunctiva normal; dry oral mucosa Neck: supple, trachea midline; full ROM Chest: normal to inspection Respiratory: normal respiratory effort, speaking in full sentences, clear to auscultation, no wheezing, rales or rhonchi Cardiac: regular rate, regular rhythm, S1S2 intact, no murmurs rubs or gallops GI: abdomen soft, non-tender, non-distended; no palpable mass or hepatosplenomegaly Skin: Dry poor skin turgor Neuro: Alert to self and place, not alert to time or situation, moving all extremities 5 out of 5 strength upper and lower extremities bilaterally Extremities: No peripheral edema no trauma Course Vital Signs Vital signs: Vital Signs Temperature 35.9 C L 01/21/24 10:07 Pulse 65 01/21/24 10:07 Respiratory Rate 16 01/21/24 10:07 Blood Pressure 121/97 H 01/21/24 10:07 Pulse Oximetry 95 01/21/24 10:07 Temperature 35.9 C L 01/21/24 10:07 Temperature Source Temporal Artery Scan 01/21/24 10:07 Pulse 65 01/21/24 10:07 Respiratory Rate 16 01/21/24 10:07 Respiratory Effort Normal, Non-Labored 01/21/24 10:12 Blood Pressure 121/97 H 01/21/24 10:07 Blood Pressure Position Supine 01/21/24 10:07 Pulse Oximetry 95 01/21/24 10:07 Oxygen Delivery Method Nasal Cannula 01/21/24 10:07 Medical Decision Making 73-year-old female history of diabetes, CKD, found altered by EMS after welfare check was called by [employer], patient soiled on her couch sitting next to what appeared to be bloody emesis, patient initially disoriented to self place and time, currently oriented to self and place, temperature 35.9 ?C hemodynamically stable not hypoxic no respiratory distress nonfocal from a neurologic examination, does appear dry with dry oral mucosa poor skin turgor, also appears pale and frail. Likely component of malnutrition and dehydration was also consider electrolyte derangement versus ACS versus intracranial process such as CVA or ICH muscles consider toxicologic process versus infectious process such as UTI or pneumonia given possible bloody emesis at bedside consider GI bleed versus malignancy, will provide fluid hydration, will obtain basic labs CT head CT abdomen pelvis, x-ray chest, urinalysis, toxicologic screening, disposition likely admission for rehab placement pending results and imaging 11: 34 evidence of severe GENO and hyperkalemia. Initiating insulin regular 10 units IV, D50 bolus, D10 water drip at 50 MLS per hour, albuterol nebulized as well as calcium gluconate [address] g[address] [place] to assess for any urinary output. Will continue with fluid hydration consider prerenal cause versus worsening CKD. Alterman status likely related to electrolyte derangement and uremia 16: 23 mental status greatly improving patient alert to self place and time. I discussed at length her current condition and critical state and recommended transfer to [facility] for nephrology consultation and the possibility of possible dialysis if her kidney function was not to improve. Patient adamant that she does not want to be transferred. Patient putting out good urine however cloudy and thick positive for WBCs, treating empirically for UTI, slight improvement of potassium and pH. Discontinued D10 given high blood sugar fingersticks. Discussed case with hospitalist who is coming to bedside to evaluate patient for possible admission here. 16: 54 Dr. Sears has evaluated patient at the bedside spoke to patient and patient's son. 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) Neuropathy Pure hypercholesterolemia (Acute 03/26/17) Portal hypertension (Acute 09/07/14) Neuropathy (Chronic 04/23/13) Fatty liver (Chronic 01/04/15) Anxiety state, unspecified (Acute 02/02/13) Medical History Alcohol abuse Clostridium difficile diarrhea UTI (urinary tract infection) Leukocytosis AMS (altered mental status) Phase of life problem in adult Depression Infected sebaceous cyst Abnormal EKG Advance directive on file Status post fall DKA (diabetic ketoacidoses) Cataracts, bilateral Unintentional weight loss Uncontrolled diabetes mellitus (~03/2017) complicated by peripheral neuropathy Uncontrolled type 2 diabetes mellitus without complication, without long-term current use of insulin (01/14/18) Hammer toe (04/23/13) Essential hypertension (01/16/12) Diabetes mellitus (03/26/17) Ascites of liver (11/15/14) Surgical History S/P right cataract extraction (03/2019) S/P tonsillectomy S/P appendectomy Cervical Procedure Family History Grandmother Stroke Mother No problems noted. 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
[2024-01-21] MEDS: Normal Saline 1,000 ML 1000 ML IV ×2 (10:39→16:00)
[2024-01-21 10:41] LABS: BE (Venous) -18 mmol/L (-2-3); HCO3 (Venous) 11 mmol/L (23-28); O2 Sat (Venous) 55 %; TCO2 (Venous) 11 mmol/L (24-29); pCO2 (Venous) 34 mmHg (41-51); pO2 (Venous) 36 mmHg
[2024-01-21 10:42] LABS: Abs Immature Grans 0.02 10^3/uL (0.0-0.06); Absolute Basophil Count 0.11 10^3/uL (0.0-0.2); Absolute Eosinophil Count 0.07 10^3/uL (0.0-0.7); Absolute Lymphocyte Count 0.95 10^3/uL (1.2-3.4); Absolute Monocyte Count 0.35 10^3/uL (0.1-0.8); Absolute Neutrophil Count 5.66 10^3/uL (1.2-6.7); Basophils % 1.5 %; HCT 35.9 % (36.0-46.0); HGB 11.8 g/dL (11.2-15.7); Immature Grans % 0.3 %; Lymphocytes % 13.3 %; MCH 28.6 pg (27.0-33.0); MCHC 32.9 % (32.0-36.0); MCV 87 fL (80-95); MPV 12.7 fL (8.0-11.0); Monocytes % 4.9 %; Platelet Count 103 10^3/uL (130-400); RBC 4.12 10^6/uL (3.93-5.22); RDW 12.4 % (11.7-14.6); RDW-SD 39.7 fL; WBC 7.16 10^3/uL (4.4-10.8)
[2024-01-21 10:43] LABS: pH (Venous) 7.13 (7.31-7.41)
[2024-01-21 10:54] LABS: INR 2.1 (0.9-1.1); PTT Activated 26.4 sec (23.6-32.8); Prothrombin Time 19.9 sec (9.1-11.1)
[2024-01-21 11:16] LABS: Salicylate 2.9 mg/dL (<2.8)
[2024-01-21 11:17] LABS: ALT 12 U/L (14-59); AST 7 U/L (15-37); Albumin 4.1 g/dL (3.4-5.0); Alkaline Phosphatase 161 U/L (46-116); Anion Gap 27.9 mmol/L (3-11); Bilirubin, Total 0.5 mg/dL (0.2-1.0); CO2 13.1 mmol/L (21.0-32.0); Chloride 104 mmol/L (98-107); Creatine Kinase 134 U/L (26-192); Estimated GFR 1.83 (mL/min/1.73m2); Glucose 146 mg/dL (74-106); Lipase 18 U/L (16-77); Magnesium 1.9 mg/dL (1.8-2.4); NT-proBNP 7843 pg/mL (<300); Sodium 145 mmol/L (136-145); TSH (W/Ref FT4) 1.15 uIU/mL (0.36-3.74); Total Protein 8.5 g/dL (6.4-8.2)
[2024-01-21 11:18] LABS: Acetaminophen < 2 ug/mL (10-30)
[2024-01-21 11:24] LABS: BUN 215 mg/dL (7-18); Potassium 6.8 mmol/L (3.5-5.1); Troponin I 89 ng/L (< or =60)
[2024-01-21 11:33] LABS: ETHANOL BLOOD < 3.0 mg/dL (<10)
--- NOTE | 2024-01-21 12:05 | DI.CT_ITS ---
Exam(s) CT HEAD WO EXAM: CT HEAD WO CLINICAL HISTORY: ams. TECHNIQUE: Imaging Protocol: Axial computed tomography images with coronal and sagittal reformatted images were created and reviewed COMPARISON: CT CT CHEST/ABD/PEL WO from 06/22/[address] HEAD CERVICAL SPINE WO from 06/22/2021 FINDINGS: The examination is limited due to patient motion artifact. Ventricles and Extra axial spaces: Normal in size and morphology for the patient's age. Hemorrhage: None. Cerebral parenchyma: No evidence of an acute territorial infarct. Incidental note is made of a parti ally empty sella. Midline shift: None. Brainstem/Cerebellum: Normal. Calvarium: Normal. Visualized Paranasal sinuses/Mastoids: Clear. Soft Tissues: Unremarkable. IMPRESSION: No acute intracranial process. RADIATION DOSE DELIVERED: 790.4mGy.cm Total DLP DATA REPOSITORY: All CT scans at this facility are submitted to the National Radiology Data Registry (NRDR) Dose Index Registry (DIR) with the [employer] (A[employer]). RADIATION OPTIMIZATION: All CT scans at this facility use at least one of these dose optimization te chniques: automated exposure control; mA and/or kV adjustment per patient size (includes targeted exa ms where dose is matched to clinical indication); or iterative reconstruction.
--- NOTE | 2024-01-21 12:12 | DI.CT_ITS ---
Exam(s) CT ABDOMEN PELVIS WO EXAM: CT ABDOMEN PELVIS WO CLINICAL HISTORY: vomiting, ams. TECHNIQUE: Imaging Protocol: Axial computed tomography images with coronal and sagittal reformatted images were created and reviewed. COMPARISON: CT CT CHEST/ABD/PEL WO from 06/22/2021 FINDINGS: ABDOMEN: Lung Bases: Normal where visualized. Liver: There is a lobulated contour of the liver suspicious for hepatic cirrhosis. No measurable mas s. Gallbladder and biliary tract: No radiodense calculus or biliary ductal dilation. Pancreas: There is pancreatic atrophy with dilatation of the pancreatic duct. Pancreatic calcificati ons are seen throughout. This may reflect chronic pancreatitis. Spleen: Normal. Kidneys: Normal size, contour and axis.There is a calcifications seen in the right renal pelvis but n o hydronephrosis is seen. No ureterolithiasis or obstructive uropathy. No masses seen. Adrenal glands: No mass is seen. Lymph nodes: Within normal limits. Abdominal Aorta: Abdominal portion non-dilated. Atherosclerotic calcification is present. PELVIS: Bladder:Symmetric distention, no gross wall thickening. Bowel: There are diverticula in the colon but no evidence of acute diverticulitis. There is mild thi ckening of the wall of the distal stomach. The stomach is not completely distended. This may be due to underdistention but gastritis should be considered. The remainder of the bowel shows no bowel wa ll thickening. There is no evidence of obstruction. No evidence of appendicitis. Peritoneal cavity: No ascites, collection or mesenteric inflammatory response. No free air. Reproductive organs: Unremarkable as visualized. Bones: Within normal limits. Soft Tissues: Within normal limits. IMPRESSION: 1. There is mild thickening of the wall of the distal stomach. This may be due to underdistention bu t gastritis should be considered. 2. Findings suggestive of hepatic cirrhosis. 3. Pancreatic atrophy and pancreatic calcifications which can be seen with chronic pancreatitis. 4. Colonic diverticulosis without evidence of acute diverticulitis. RADIATION DOSE DELIVERED: 997.99mGy.cm Total DLP DATA REPOSITORY: All CT scans at this facility are submitted to the National Radiology Data Registry (NRDR) Dose Index Registry (DIR) with the [employer] (ACR). RADIATION OPTIMIZATION: All CT scans at this facility use at least one of these dose optimization te chniques: automated exposure control; mA and/or kV adjustment per patient size (includes targeted exa ms where dose is matched to clinical indication); or iterative reconstruction.
--- NOTE | 2024-01-21 12:23 | DI.RAD_ITS ---
Exam(s) XR CHEST 2V PA LATERAL EXAM: XR CHEST 2V PA LATERAL CLINICAL HISTORY: ams TECHNIQUE: 2D digital imaging was performed of the chest. Three images were obtained. PA and later al views were obtained. COMPARISON: No exams were available for comparison FINDINGS: MEDIASTINUM: Normal. HEART: Normal. PULMONARY VASCULATURE: Normal. LUNGS: Clear. PLEURAL SPACE: No pleural effusion or pneumothorax. BONE:Within normal limits for the patient's age. OTHER FINDINGS:Normal. IMPRESSION: No acute pulmonary findings. DATA REPOSITORY: RADIATION DOSE DELIVERED:
[2024-01-21] MEDS: Albuterol 2.5 MG/3 ML INH SOLN VIAL UPD (12:28)
[2024-01-21] MEDS: Dextrose 50%-Water 25 GM/50 ML SYR IVP ×2 (12:28→18:18)
[2024-01-21] MEDS: Insulin REGULAR-Human 100 UNITS/ML UNIT SC ×2 (12:28→18:50)
[2024-01-21] MEDS: DEXTROSE 10%-WATER 500 ML 50 ML IV (12:28)
[2024-01-21] MEDS: CALCIUM GLUCONATE in NaCl 1 GM/50 ML BAG IVPB ×2 (12:28→18:18)
[2024-01-21 12:55] LABS: Bilirubin Negative (Negative); Blood Large (Negative); Clarity Cloudy (Clear); Glucose Negative (Negative); Ketones Negative (Negative); Leukocyte Esterase Large (Negative); Nitrite Negative (Negative); Urobilinogen 0.2 mg/dL (Up to 0.2); pH 5.5 (5-8)
[2024-01-21 13:06] LABS: *AMPHETAMINES SCREEN URINE Negative (Negative); *BARBITURATES SCREEN URINE Negative (Negative); *BENZODIAZEPINES SCREEN URINE Negative (Negative); Cannabinoids THC Negative (Negative); Cocaine Screen,Urine Negative (Negative); METHADONE URINE SCREEN Negative (Negative); OPIATES URINE SCREEN Negative (Negative)
[2024-01-21 13:12] LABS: Tricyclic Antidepressants Negative (Negative)
[2024-01-21 13:26] LABS: Bacteria Many HPF (Negative); C & S Indicated? Yes; Casts Negative LPF (Negative); Crystals Negative HPF (Negative); Epithelial Cells Rare HPF (Negative); Mucus Trace (Negative); WBC >50 HPF (0-5)
[2024-01-21 13:47] LABS: BE (Venous) -18 mmol/L (-2-3); HCO3 (Venous) 11 mmol/L (23-28); O2 Sat (Venous) 45 %; TCO2 (Venous) 11 mmol/L (24-29); pCO2 (Venous) 33 mmHg (41-51); pO2 (Venous) 30 mmHg
[2024-01-21 13:50] LABS: pH (Venous) 7.15 (7.31-7.41)
[2024-01-21 14:17] LABS: Anion Gap 25.7 mmol/L (3-11); CO2 13.3 mmol/L (21.0-32.0); Chloride 105 mmol/L (98-107); Estimated GFR 1.91 (mL/min/1.73m2); Glucose 308 mg/dL (74-106); Sodium 144 mmol/L (136-145)
[2024-01-21 14:23] LABS: BUN 212 mg/dL (7-18); CREATININE 17.4 mg/dL (0.55-1.02); Potassium 6.5 mmol/L (3.5-5.1)
[2024-01-21 14:29] LABS: Troponin I 88 ng/L (< or =60)
[2024-01-21] MEDS: levoFLOXacin 750 MG/150 ML BAG 100 MG IVPB (14:43)
--- NOTE | 2024-01-21 16:24 | NUR.NOTE ---
Nursing Note: Pt gastrocult is positive, aware
[2024-01-21 17:34] LABS: Anion Gap 24.3 mmol/L (3-11); CO2 11.7 mmol/L (21.0-32.0); Calcium 7.4 mg/dL (8.5-10.1); Chloride 108 mmol/L (98-107); Estimated GFR 2.08 (mL/min/1.73m2); Glucose 258 mg/dL (74-106); Sodium 144 mmol/L (136-145)
[2024-01-21 17:55] LABS: BUN 205 mg/dL (7-18); CREATININE 16.2 mg/dL (0.55-1.02)
[2024-01-21 17:56] LABS: Potassium 6.2 mmol/L (3.5-5.1)
--- NOTE | 2024-01-21 18:00 | RT.EKG_ITS ---
APPROVED REPORT Exam: Resting ECG Reason for Exam: juwan change Patient Location: E HR:67 bpm ECG Measurements Heart Rate 67 AXIS OH 170 P 68 QRSd 102 QRS -3 QT 437 T 103 QTc 462 Conclusion Sinus rhythm 67 normal axis non specific st changes
[2024-01-21] MEDS: Albuterol 2.5 MG/3 ML INH SOLN VIAL 10 MG UPD (18:17)
[2024-01-21] MEDS: Insulin REGULAR-Human 100 UNITS/ML UNIT IV (18:18)
[2024-01-21] MEDS: Ondansetron 4 MG/2 ML VIAL 8 MG IVP (18:19)
[2024-01-21] MEDS: MAGNESIUM SULFATE 2 GM/50 ML BAG IVINF (18:19)
--- NOTE | 2024-01-21 18:43 | ED.PROG_ITS ---
Date of service: 01/21/24 Time of Service: 20:24 Medical Decision Making Care assumed from off going provider. Patient is a 73-year-old female with known CKD that presents with altered mental status. She was found to have acute renal failure with significant elevation in BUN, creatinine and potassium. Shifting has been initiated. Patient has been saying that she does not want to be transferred, however it is clear that the patient does not have capacity to make medical decisions at this time and her son who is at the bedside is power of deputy attorney general. The patient had been evaluated by the hospitalist who does not feel comfortable with the patient staying here due to her need for emergent dialysis and I concur. Repeat lab was drawn, and after shifting her potassium was still elevated at 6.2. I ordered additional medications for shifting. Patient is continuing to make urine, so I also ordered Lasix. I had a makenzie discussion regarding the goals of care with the patient and her son. If she stays here, there is no utility in remaining full code, if her heart stops beating, her electrolyte derangement is so severe that CPR would not be beneficial to her. Her only chance for meaningful survival with the transfer and emergent dialysis. Son, power of deputy attorney general, agrees and the patient has been accepted for transfer to [facility]. She will go to the critical care service, accepting Dr. Tovar. While observing the patient, she is noted to become significantly bradycardic and hypotensive while vomiting. Her emesis is coffee-ground. A dose of IV Protonix was given. A dose of Zofran was also given to prevent further episodes of vomiting. When she stops vomiting her vital signs stabilized this is a very concerning dysrhythmia event that occurs. Given her instability and critical illness, [facility] will transport the patient. Medical Records Medical records reviewed: Yes I reviewed the patient's medical records. Lab Data Lab results reviewed: Yes I reviewed the patient's lab results. Quality:SDOH Health Related Social Needs: No Data to Display Critical Care Time Critical Care Time Critical Care Time: Yes Total Critical Care Time: 32 Attestation: CRITICAL CARE Upon my evaluation, this patient had a high probability of imminent or life- threatening deterioration due to renal failure, hyperkalemia, dysrhythmia, sepsis which required my direct attention, intervention, and personal management. I have personally provided 32 minutes of critical care time exclusive of time spent on separately billable procedures. Time includes review of laboratory data, radiology results, discussion with consultants, and monitoring for potential decompensation. Interventions were performed as documented above Sign Out Sign Out Data: Sign Out Comment: pending repeat BMP to assist dispo decision Last updated by Peter Simeon MD at 01/21/24 16:55 Discharge Plan Disposition Specific Acute Inpt Facility: [facility] Discharge Details Chief Complaint: AMS/LOC Primary Care Provider: Di Busch ED Provider: Claudia Power Home Meds and New Rx's Prescriptions: No Action (DME) pen needle, diabetic [Lite Touch Insulin Pen Eldred] 31 gauge x 1/4 needle See Rx Instructions .ROUTE .MEDSUPPLY Qty: 200 11RF Rx Instructions: As directed BID (DME) lancets [OneTouch Delica Lancets] 30 gauge misc See Rx Instructions .ROUTE .MEDSUPPLY Qty: 100 3RF Rx Instructions: As directed to check blood sugars daily to keep AIC below 7.0 acetaminophen [Acetaminophen Extra Strength] 500 mg tablet 500 mg PO Q6H PRN (DME) blood sugar diagnostic Strip See Rx Instructions .ROUTE .MEDSUPPLY Qty: 180 3RF Rx Instructions: One Touch Verio. For E11.10 A1C<7. To test BID. insulin degludec [Tresiba FlexTouch U-100] 100 unit/mL (3 mL) insulin pen 22 unit subcut BID Qty: 15 2RF Rx Instructions: Changing from lantus to tresiba for insurance, also slight dose increase 06/12/23 glimepiride 2 mg tablet 2 mg PO QAM Qty: 90 3RF Rx Instructions: take with breakfast furosemide 20 mg tablet 20 mg PO DAILY PRN (Reason: edema) Qty: 30 1RF Hold Instructions: Home Medication placed on hold at Doctor's office Discharge Data Discharge Date/Time-TO BE ENTERED AT DEPARTURE: 01/21/24 19:10
[2024-01-21] MEDS: Furosemide 100 MG/10 ML VIAL 80 MG IVP (18:52)
[2024-01-21] MEDS: Pantoprazole 40 MG VIAL 80 MG IVP (18:53)
[2024-01-21] MEDS: Sodium Bicarbonate 50 MEQ/50 ML SYR (19:00)
[2024-01-21 19:10] LABS: Anion Gap 23.9 mmol/L (3-11); CO2 12.1 mmol/L (21.0-32.0); Calcium 7.6 mg/dL (8.5-10.1); Chloride 106 mmol/L (98-107); Estimated GFR 2.14 (mL/min/1.73m2); Glucose 358 mg/dL (74-106); Potassium 5.9 mmol/L (3.5-5.1); Sodium 142 mmol/L (136-145)
[2024-01-21 19:31] LABS: BUN 198 mg/dL (7-18); CREATININE 15.8 mg/dL (0.55-1.02)
--- NOTE | 2024-01-22 07:45 | NUR.NOTE ---
Accessed chart to reconcile orders for EKG with EKG?s in [facility]. Duplicate order cancelled. Nursing Note:
== END 2024-01-21 19:10 ==
PROVIDERS: Emergency Medicine; Emergency Provider Emergency Medicine; PCP Nurse Practitioner Adult Health
DX: R41.82 Altered mental status, unspecified (principal); E11.22 Type 2 diabetes mellitus with diabetic chronic kidney disease; I12.9 Hypertensive chronic kidney disease with stage 1 through stage 4 chronic kidney disease, or unspecified chronic kidney disease; N18.4 Chronic kidney disease, stage 4 (severe); N17.9 Acute kidney failure, unspecified; E11.40 Type 2 diabetes mellitus with diabetic neuropathy, unspecified; E11.65 Type 2 diabetes mellitus with hyperglycemia; E87.5 Hyperkalemia; Z79.84 Long term (current) use of oral hypoglycemic drugs; Z79.4 Long term (current) use of insulin; Z79.899 Other long term (current) drug therapy
CPT/HCPCS: 00123; 80048; 80053; 80307; 82550; 82805; 82962; 83690; 87077; 93005; 94640; 96361; 96365; 96366; 96367; 96368; 96375; 99285; 70450; 71046; 74176; 80320; 80329; 81003; 81015; 83735; 83880; 84443; 84484; 85025; 85610; 85730; 87086; 87186; 93010; J0613; J1815; J1940; J1956; J2405; J2470; J3475; J7613